=== PATIENT | female | born 1950 | race Caucasian/White ===

== ENCOUNTER 2017-04-12 10:50 | Emergency (ER) | payer MEDICARE, OTHER ==
[2017-04-12] MEDS ORDERED: ONDANSETRON 4 MG TABLET PO ONE (11:07)
[2017-04-12] MEDS ORDERED: SODIUM CHLORIDE 500 ML IV STA (11:07)
[2017-04-12 11:29] VITALS: BMI 35.4
[2017-04-12] MEDS ORDERED: ONDANSETRON 4 MG/2 ML VIAL IVPUSH ONE (11:32)
[2017-04-12] MEDS ORDERED: ACETAMINOPHEN 325 MG TABLET (FP) PO ONE (11:32)
--- NOTE | 2017-04-12 11:32 | PDOC ---
History of Present Illness - General Chief Complaint: Syncope/Near Syncope Stated Complaint: Syncope/Near Syncope Time Seen by Provider: 04/12/17 11:03 History Source: Patient, Family - History of Present Illness Timing/Duration: other (this am) Associated Symptoms: reports: diaphoresis, fever/chills, nausea/vomiting, weakness. denies: chest pain, cough, headaches, shortness of breath Past History - Past Medical History Allergies/Adverse Reactions: Allergies Allergy/AdvReac Type Severity Reaction Status Date / Time No Known Allergies Allergy Verified 04/12/17 11:23 Review of Systems - Review of Systems Constitutional: Yes: Fever, Weakness Respiratory: No: Cough, Shortness of Breath Cardiac (ROS): No: Chest Pain, Palpitations ABD/GI: Yes: Nausea. No: Diarrhea, Vomiting, Abdominal cramping : No: Dysuria, Hematuria *Physical Exam - Physical Exam General Appearance: Yes: Appropriately Dressed, Mild Distress HEENT: positive: Normal Voice, Other (dry MM) Neck: positive: Supple Respiratory/Chest: positive: Lungs Clear, Normal Breath Sounds. negative: Respiratory Distress Cardiovascular: positive: Regular Rate, S1, S2 Gastrointestinal/Abdominal: positive: Soft. negative: Tender Musculoskeletal: negative: CVA Tenderness Extremity: positive: Pedal Edema (2 edema w/ venous stasis changes b/l) Integumentary: positive: Dry, Warm Neurologic: positive: Alert, Normal Mood/Affect Heart Score/ECG Review - ECG Intrepretation Comment:: 04/12/17 11:37 Twelve-lead EKG was performed and reviewed by me. There is normal sinus rhythm with a normal rate. The axis is normal. The intervals are normal. There are no ST or T wave abnormalities. Impression: Normal twelve-lead EKG ED Treatment Course - LABORATORY CBC & Chemistry Diagram: 04/12/17 11:30 04/12/17 11:30 - RADIOLOGY Radiology Studies Ordered: Category Date Time Status HEAD CT WITHOUT CONTRAST [CT] Stat CT Scan 04/12/17 11:07 Ordered CHEST X-RAY PORTABLE* [RAD] Stat Radiology 04/12/17 11:06 Ordered Medical Decision Making - Medical Decision Making 04/12/17 11:28 66-year-old female, morbidly obese, osteoporosis, CHF, venous stasis, seizures, depression, sent from [facility] assisted living facility for profound weakness with diaphoresis and elevated BP this a.m. Patient also complaining of nausea. Denies vomiting, chest pain, shortness of breath, headache, dizziness, slurred speech or focal weakness. Patient is Citizen [place] speaking, but even with [place] Infectious Waste Technician via supervisor inventory merchandising phone, it was very difficult obtaining history from patient. I contacted patient's healthcare proxy, sister April, at [phone], number on facility sheet and got most of the history. Sister states patient does have a history of seizures but has not had a seizure in 12 years and is unsure if patient on any seizure meds. States she received call from facility staff this a.m. that patient was weak, diaphoretic and had elevated pressure. States she is on her way to ED to see patient See exam Weakness w/ nausea and fever R/o infection vs metabolic, less likely cardiac or neuro -tylenol -zofran -IVF -labs including lactate -rodriguez-cx 04/12/17 11:34 04/12/17 13:02 EKG, labs, UA, CT all unremarkable. No obvious source for infection at this time. Will check a flu and intra-abdominal pathology with CT scan. Anticipate admission 04/12/17 13:59 CT a/p unremarkable. Influenza pending. Case signed out to resident H[place]on with plan for serial troponin and discharge back to assisted living facility as per discussion with Dr. Le *DC/Admit/Observation/Transfer - Referrals Referrals: Jody Landry MD [Primary Care Provider] - - Patient Instructions - Post Discharge Activity
[2017-04-12] MEDS ORDERED: ACETAMINOPHEN 325 MG TABLET (FP) ONE (11:51)
[2017-04-12] MEDS ORDERED: ONDANSETRON *ODT* 4 MG TABLET ONE (11:51)
[2017-04-12] MEDS ORDERED: ONDANSETRON 4 MG/2 ML VIAL ONE (11:51)
[2017-04-12 12:07] LABS: BASOPHIL 0.2 % (0-2.0); MCH 33.2 pg (25.7-33.7); MCHC 33.3 g/dl (32.0-36.0); MEAN CELL VOLUME 99.9 fl (80-96); MEAN PLT VOLUME 6.4 fl (7.5-11.1); NEUTROPHILS 73.5 % (42.8-82.8); PLATELET COUNT 124 K/MM3 (134-434); RDW 14.9 % (11.6-15.6); WHITE BLOOD COUNT 6.9 K/mm3 (4.0-10.0)
[2017-04-12 12:32] LABS: ALBUMIN 3.5 g/dl (3.4-5.0); ANION GAP 6 (8-16); BILIRUBIN,TOTAL 0.6 mg/dL (0.2-1.0); CALCIUM 8.7 mg/dL (8.5-10.1); CO2 29 mmol/L (21-32); CREATININE 0.8 mg/dL (0.55-1.02); GLUCOSE,RANDOM 91 mg/dL (74-106); SGOT/AST 18 U/L (15-37); SGPT/ALT 12 U/L (12-78); TOT PROT 7.1 g/dl (6.4-8.2)
[2017-04-12 12:34] LABS: ALK PHOS 67 U/L (45-117); CPK 56 IU/L (26-192); TROPONIN I < 0.02 ng/ml (0.00-0.05)
[2017-04-12 12:46] LABS: URINE APPEARANCE CLEAR; URINE BILIRUBIN NEGATIVE (NEGATIVE); URINE BLOOD NEGATIVE (NEGATIVE); URINE COLOR LTYELLOW; URINE GLUCOSE (UA) NEGATIVE (NEGATIVE); URINE KETONE NEGATIVE (NEGATIVE); URINE NITRITE NEGATIVE (NEGATIVE); URINE PROTEIN NEGATIVE (NEGATIVE); URINE UROBILINOGEN NEGATIVE mg/dL (0.2-1.0)
[2017-04-12 15:51] VITALS: TEMP 99.3
--- NOTE | 2017-04-12 16:02 | PDOC ---
History of Present Illness - General Chief Complaint: Syncope/Near Syncope Stated Complaint: Syncope/Near Syncope Time Seen by Provider: 04/12/17 11:03 Past History - Past Medical History Allergies/Adverse Reactions: Allergies Allergy/AdvReac Type Severity Reaction Status Date / Time No Known Allergies Allergy Verified 04/12/17 11:23 Home Medications: Ambulatory Orders Unobtainable [Unobtainable] 04/12/17 COPD: No DVT: No Seizures: Yes Thyroid Disease: Yes (HYPO) - Immunization History Immunization Up to Date: Yes - Suicide/Smoking/Psychosocial Hx Smoking History: Unknown if ever smoked Have you smoked in the past 12 months: No Hx Alcohol Use: No Drug/Substance Use Hx: No Substance Use Type: None *Physical Exam - Vital Signs Last Vital Signs Temp Pulse Resp BP Pulse Ox 99.3 F 80 16 144/68 95 04/12/17 15:51 04/12/17 11:23 04/12/17 11:23 04/12/17 11:23 04/12/17 11:23 ED Treatment Course - LABORATORY CBC & Chemistry Diagram: 04/12/17 11:30 04/12/17 11:30 - ADDITIONAL ORDERS Additional order review: Laboratory Results 04/12/17 04/12/17 04/12/17 11:30 11:30 11:30 Sodium 138 Potassium 4.5 Chloride 103 Carbon Dioxide 29 Anion Gap 6 L BUN 17 Creatinine 0.8 Creat Clearance w eGFR > 60 Random Glucose 91 Lactic Acid 2.0 Calcium 8.7 Total Bilirubin 0.6 AST 18 ALT 12 Alkaline Phosphatase 67 Creatine Kinase 56 Troponin I < 0.02 B-Natriuretic Peptide 380.54 H Total Protein 7.1 Albumin 3.5 Urine Color Urine Appearance Urine pH Ur Specific [place] Urine Protein Urine Glucose (UA) Urine Ketones Urine Blood Urine Nitrite Urine Bilirubin Urine Urobilinogen 04/12/17 11:30 Sodium Potassium Chloride Carbon Dioxide Anion Gap BUN Creatinine Creat Clearance w eGFR Random Glucose Lactic Acid Calcium Total Bilirubin AST ALT Alkaline Phosphatase Creatine Kinase Troponin I B-Natriuretic Peptide Total Protein Albumin Urine Color Ltyellow Urine Appearance Clear Urine pH 9.0 H Ur Specific [place] 1.014 Urine Protein Negative Urine Glucose (UA) Negative Urine Ketones Negative Urine Blood Negative Urine Nitrite Negative Urine Bilirubin Negative Urine Urobilinogen Negative 04/12/17 13:22 Influenza Types A,B Antigen (WANDA) - Final Nasopharyngeal Swab - Final 04/12/17 11:30 RBC 4.14 MCV 99.9 H MCHC 33.3 RDW 14.9 MPV 6.4 L Neutrophils % 73.5 Lymphocytes % 13.3 Monocytes % 13.0 H Eosinophils % 0.0 Basophils % 0.2 - Medications Given in the ED: ED Medications Discontinued Medications Generic Name Dose Route Start Last Admin Trade Name Spencerq PRN Reason Stop Dose Admin Acetaminophen 650 mg 04/12/17 11:32 04/12/17 12:02 Tylenol - PO 04/12/17 11:33 650 mg ONCE ONE Administration Sodium Chloride 500 mls @ 1,000 mls/hr 04/12/17 11:07 04/12/17 12:01 Normal Saline - IV 04/12/17 11:36 1,000 mls/hr ASDIR STA Administration Ondansetron HCl 4 mg 04/12/17 11:07 04/12/17 12:00 Zofran - PO 04/12/17 11:08 4 mg ONCE ONE Administration Ondansetron HCl 4 mg 04/12/17 11:32 04/12/17 12:02 Zofran Injection IVPUSH 04/12/17 11:33 4 mg ONCE ONE Administration *DC/Admit/Observation/Transfer - Referrals Referrals: Jody Landry MD [Primary Care Provider] - - Patient Instructions - Post Discharge Activity
[2017-04-12 16:29] LABS: CPK 46 IU/L (26-192); TROPONIN I < 0.02 ng/ml (0.00-0.05)
--- NOTE | 2017-04-12 17:36 | PDOC ---
*Physical Exam - Vital Signs Last Vital Signs Temp Pulse Resp BP Pulse Ox 99.3 F 80 16 144/68 95 04/12/17 15:51 04/12/17 11:23 04/12/17 11:23 04/12/17 11:23 04/12/17 11:23 - Physical Exam General Appearance: Yes: Nourished Neck: positive: Trachea midline, Supple Respiratory/Chest: positive: Lungs Clear Cardiovascular: positive: S1, S2 Neurologic: positive: Alert ED Treatment Course - LABORATORY CBC & Chemistry Diagram: 04/12/17 11:30 04/12/17 11:30 - ADDITIONAL ORDERS Additional order review: Laboratory Results 04/12/17 04/12/17 04/12/17 15:43 11:30 11:30 Sodium Potassium Chloride Carbon Dioxide Anion Gap BUN Creatinine Creat Clearance w eGFR Random Glucose Lactic Acid 2.0 Calcium Total Bilirubin AST ALT Alkaline Phosphatase Creatine Kinase 46 Troponin I < 0.02 B-Natriuretic Peptide 380.54 H Total Protein Albumin Urine Color Urine Appearance Urine pH Ur Specific [place] Urine Protein Urine Glucose (UA) Urine Ketones Urine Blood Urine Nitrite Urine Bilirubin Urine Urobilinogen 04/12/17 04/12/17 11:30 11:30 Sodium 138 Potassium 4.5 Chloride 103 Carbon Dioxide 29 Anion Gap 6 L BUN 17 Creatinine 0.8 Creat Clearance w eGFR > 60 Random Glucose 91 Lactic Acid Calcium 8.7 Total Bilirubin 0.6 AST 18 ALT 12 Alkaline Phosphatase 67 Creatine Kinase 56 Troponin I < 0.02 B-Natriuretic Peptide Total Protein 7.1 Albumin 3.5 Urine Color Ltyellow Urine Appearance Clear Urine pH 9.0 H Ur Specific [place] 1.014 Urine Protein Negative Urine Glucose (UA) Negative Urine Ketones Negative Urine Blood Negative Urine Nitrite Negative Urine Bilirubin Negative Urine Urobilinogen Negative 04/12/17 13:22 Influenza Types A,B Antigen (WANDA) - Final Nasopharyngeal Swab - Final 04/12/17 11:30 RBC 4.14 MCV 99.9 H MCHC 33.3 RDW 14.9 MPV 6.4 L Neutrophils % 73.5 Lymphocytes % 13.3 Monocytes % 13.0 H Eosinophils % 0.0 Basophils % 0.2 - Medications Given in the ED: ED Medications Discontinued Medications Generic Name Dose Route Start Last Admin Trade Name Freq PRN Reason Stop Dose Admin Acetaminophen 650 mg 04/12/17 11:32 04/12/17 12:02 Tylenol - PO 04/12/17 11:33 650 mg ONCE ONE Administration Sodium Chloride 500 mls @ 1,000 mls/hr 04/12/17 11:07 04/12/17 12:01 Normal Saline - IV 04/12/17 11:36 1,000 mls/hr ASDIR STA Administration Ondansetron HCl 4 mg 04/12/17 11:07 04/12/17 12:00 Zofran - PO 04/12/17 11:08 4 mg ONCE ONE Administration Ondansetron HCl 4 mg 04/12/17 11:32 04/12/17 12:02 Zofran Injection IVPUSH 04/12/17 11:33 4 mg ONCE ONE Administration Medical Decision Making - Medical Decision Making 04/12/17 17:39 Patient signed out by Parvin (PA) and under the care of Dr. Le (Attending). Awaiting repeat Troponin. Patient resting comfortably, denies any current chest pain, shortness of breath. Heart Score 1. Repeat Troponin (-), patient continues to deny any chest pain. A&O x2 (baseline ). Influenza negative. Family @ bedside, counseled extensively on patient's condition and course of care during time in ED. Patient discharged to assisted living facility. *DC/Admit/Observation/Transfer Diagnosis at time of Disposition: Chest pain - Discharge Dispostion Disposition: INTERMEDIATE FACILITY - Referrals Referrals: Jody Landry MD [Primary Care Provider] - - Patient Instructions Printed Discharge Instructions: Improving Nutrition in the Elderly Additional Instructions: Please return to the Emergency Department for any worsening or concerning symptoms. - Post Discharge Activity
[2017-04-12 17:43] LABS: URINE LEUK ESTERASE Negative (NEGATIVE)
[2017-04-12 18:08] VITALS: BP 138/61; PULSE 72
--- NOTE | 2017-04-13 07:40 | EKG ---
Test Reason : Blood Pressure : / mmHG Vent. Rate : 076 BPM Atrial Rate : 076 BPM P-R Int : 138 ms QRS Dur : 076 ms QT Int : 372 ms P-R-T Axes : 054 049 040 degrees QTc Int : 418 ms NORMAL SINUS RHYTHM NORMAL ECG NO PREVIOUS ECGS AVAILABLE Confirmed by Denisse Ying ([id number]) on 04/12/2017 2:28:37 PM Also confirmed by MD Stepan, Denisse ([id number]), editor continuity and script DENISSE TOMLIN ([id number]) on 04/13/2017 7:39:38 AM Referred By: Confirmed By:Denisse Ying MD
== END 2017-04-12 18:10 ==
LOC: JER 10:50
DX: R07.9 Chest pain, unspecified (principal); E66.01 Morbid (severe) obesity due to excess calories; Z68.35 Body mass index [BMI] 35.0-35.9, adult; I50.9 Heart failure, unspecified; F32.9 Major depressive disorder, single episode, unspecified; R56.9 Unspecified convulsions
CPT/HCPCS: 36415; 70450-TC; 71010-TC; 74177-TC; 80053; 81003; 82550; 83605; 83880; 84484; 85025; 87040; 87086; 87804; 93005; 93010; 99285-25

== ENCOUNTER 2017-04-18 21:45 | Inpatient (IN) | payer OTHER ==
[2017-04-18 22:32] VITALS: BMI 27.4
[2017-04-18] MEDS ORDERED: SODIUM CHLORIDE 0.9% 1000 ML INFUS.BAG IV PRN (23:47)
--- NOTE | 2017-04-19 00:41 | PDOC ---
History of Present Illness - History of Present Illness Initial Comments: 04/19/17 00:41 The patient is 66-year-old female, nepalese speaking/understands frisian, with a significant past medical history of osteoporosis, CHF, venous stasis, seizures, depression, who presents to the emergency department, sent from [facility], for "shaking all day" as per the facility. Allergies: NKDA Social history: denies toxic habits <Maureen Del Castillo - Last Filed: 04/19/17 01:41> <Yajaira Leyva - Last Filed: 04/19/17 16:51> - General Chief Complaint: Tremors Stated Complaint: SHAKING Time Seen by Provider: 04/18/17 22:03 Past History <Maureen Del Castillo - Last Filed: 04/19/17 01:41> - Past Medical History COPD: No DVT: No Seizures: Yes Thyroid Disease: Yes (HYPO) - Immunization History Immunization Up to Date: Yes - Suicide/Smoking/Psychosocial Hx Smoking History: Unknown if ever smoked Have you smoked in the past 12 months: No Information on smoking cessation initiated: No Hx Alcohol Use: No Drug/Substance Use Hx: No Substance Use Type: None <Yajaira Leyva - Last Filed: 04/19/17 16:51> - Past Medical History Allergies/Adverse Reactions: Allergies Allergy/AdvReac Type Severity Reaction Status Date / Time No Known Allergies Allergy Verified 04/18/17 22:30 Home Medications: Ambulatory Orders Calcium Citrate [Calcitrate] 200 mg PO DAILY 04/19/17 Divalproex *ER* [Depakote *ER* -] 1,000 mg PO AM 04/19/17 Divalproex *ER* [Depakote *ER* -] 750 mg PO HS 04/19/17 Ergocalciferol (Vitamin D2) [Vitamin D2] 50,000 unit PO WEEKLY 04/19/17 Furosemide [Lasix] 20 mg PO Q48H 04/19/17 Levetiracetam [Keppra -] 1,500 mg PO BID 04/19/17 Levothyroxine Sodium [Levo-T] 50 mcg PO DAILY 04/19/17 Review of Systems - Review of Systems Able to Perform ROS?: Yes Comments:: 04/19/17 00:42 CONSTITUTIONAL: (+) "Shaking all day" Absent: fever, chills, diaphoresis, generalized weakness, malaise, loss of appetite HEENT: Absent: rhinorrhea, nasal congestion, throat pain, throat swelling, difficulty swallowing, mouth swelling, ear pain, eye pain, visual Changes CARDIOVASCULAR: Absent: chest pain, syncope, palpitations, irregular heart rate, lightheadedness , peripheral edema RESPIRATORY: Absent: cough, shortness of breath, dyspnea with exertion, orthopnea, wheezing, stridor, hemoptysis GASTROINTESTINAL: Absent: abdominal pain, abdominal distension, nausea, vomiting, diarrhea, constipation, melena, hematochezia GENITOURINARY: Absent: dysuria, frequency, urgency, hesitancy, hematuria, flank pain, genital pain MUSCULOSKELETAL: Absent: myalgia, arthralgia, joint swelling SKIN: Absent: rash, itching, pallor HEMATOLOGIC/IMMUNOLOGIC: Absent: easy bleeding, easy bruising, lymphadenopathy, frequent infections ENDOCRINE: Absent: unexplained weight gain, unexplained weight loss, heat intolerance, cold intolerance NEUROLOGIC: Absent: headache, focal weakness or paresthesias, dizziness, unsteady gait, seizure, mental status changes, bladder or bowel incontinence PSYCHIATRIC: Absent: anxiety, depression, suicidal or homicidal ideation, hallucinations. Is the patient limited Kiswahili proficient: Yes <Maureen Del Castillo - Last Filed: 04/19/17 01:41> *Physical Exam - Vital Signs Last Vital Signs Temp Pulse Resp BP Pulse Ox 102.5 F H 98 H 18 173/57 98 04/19/17 00:23 04/19/17 00:23 04/19/17 00:23 04/19/17 00:23 04/19/17 00:23 - Physical Exam Comments: 04/19/17 00:43 GENERAL: Well developed, well nourished. Awake and alert. No acute distress. HEENT: Normocephalic, atraumatic. PERRLA, EOMI. No conjunctival pallor. Sclera are non- icteric. Moist mucous membranes. Oropharynx is clear. NECK: Supple. Full ROM. No JVD. Carotid pulses 2+ and symmetric, without bruits. No thyromegaly. No lymphadenopathy. CARDIOVASCULAR: Regular rate and rhythm. No murmurs, rubs, or gallops. Distal pulses are 2+ and symmetric. PULMONARY: No evidence of respiratory distress. Lungs clear to auscultation bilaterally. No wheezing, rales or rhonchi. ABDOMINAL: Soft. Non-tender. Non-distended. No rebound or guarding. No organomegaly. Normoactive bowel sounds. MUSCULOSKELETAL Normal range of motion at all joints. No bony deformities or tenderness. No CVA tenderness. EXTREMITIES: No cyanosis. No clubbing. No edema. No calf tenderness. SKIN: Warm and dry. Normal capillary refill. No rashes. No jaundice. NEUROLOGICAL: (+) tremor, greater on the right. Alert, awake, appropriate. Cranial nerves 2- 12 intact. Normoreflexic in the upper and lower extremities. Normal speech. Toes are down-going bilaterally. PSYCHIATRIC: Cooperative. Good eye contact. Appropriate mood and affect. <Maureen Del Castillo - Last Filed: 04/19/17 01:41> - Vital Signs Last Vital Signs Temp Pulse Resp BP Pulse Ox 102.5 F H 98 H 18 173/57 98 04/19/17 00:23 04/19/17 00:23 04/19/17 00:23 04/19/17 00:23 04/19/17 00:23 <Yajaira Leyva - Last Filed: 04/19/17 16:51> ED Treatment Course - LABORATORY CBC & Chemistry Diagram: 04/19/17 00:33 04/19/17 00:33 - ADDITIONAL ORDERS Additional order review: 04/18/17 23:48 Influenza Types A,B Antigen (WANDA) - Final Nasopharyngeal Swab - Final <Maureen Del Castillo - Last Filed: 04/19/17 01:41> - LABORATORY CBC & Chemistry Diagram: 04/19/17 08:30 04/19/17 08:30 - ADDITIONAL ORDERS Additional order review: 04/18/17 23:48 Influenza Types A,B Antigen (WANDA) - Final Nasopharyngeal Swab - Final - RADIOLOGY Radiology Studies Ordered: Category Date Time Status CHEST X-RAY PORTABLE* [RAD] Stat Radiology 04/19/17 00:37 Ordered <Yajaira Leyva - Last Filed: 04/19/17 16:51> *DC/Admit/Observation/Transfer - Attestations Scribe Attestion: 04/19/17 00:43 Documentation prepared by Maureen Del Castillo, acting as medical physics researcher for Yajaira Leyva MD <Maureen Del Castillo - Last Filed: 04/19/17 01:41> <Yajaira Leyva - Last Filed: 04/19/17 16:51> Diagnosis at time of Disposition: Pneumonia - Discharge Dispostion Condition at time of disposition: Stable
[2017-04-19 01:07] LABS: VENOUS PH 7.35 (7.32-7.42)
[2017-04-19 01:09] LABS: BASO % 0.4 % (0-2.0); EOS % 0.2 % (0-4.5); MCH 34.1 pg (25.7-33.7); MCHC 34.1 g/dl (32.0-36.0); MEAN PLT VOLUME 7.2 fl (7.5-11.1); NEUT % 63.9 % (42.8-82.8); RDW 14.5 % (11.6-15.6); WHITE BLOOD COUNT 6.9 K/mm3 (4.0-10.0)
[2017-04-19 01:18] LABS: INR 1.04 (0.82-1.09); PROTHROMBIN TIME (PATIENT) 11.8 SEC (9.98-11.88)
[2017-04-19 01:21] LABS: ACTIVATED PTT 27.6 SECONDS (26.9-34.4)
[2017-04-19 01:29] LABS: ALBUMIN 3.6 g/dl (3.4-5.0); ALK PHOS 68 U/L (45-117); ANION GAP 9 (8-16); BILIRUBIN,TOTAL 0.5 mg/dL (0.2-1.0); CALCIUM 8.7 mg/dL (8.5-10.1); CO2 29 mmol/L (21-32); CPK 53 IU/L (26-192); CREATININE 0.9 mg/dL (0.55-1.02); GLUCOSE,RANDOM 100 mg/dL (74-106); SGOT/AST 17 U/L (15-37); SGPT/ALT 13 U/L (12-78); TOT PROT 7.4 g/dl (6.4-8.2)
[2017-04-19] MEDS ORDERED: ACETAMINOPHEN 1000 MG/100 ML VIAL (NON FORMULARY) IVPB ONE (01:30)
[2017-04-19 01:31] LABS: TROPONIN I < 0.02 ng/ml (0.00-0.05)
[2017-04-19] MEDS ORDERED: ACETAMINOPHEN INJECTION 100 ML IVPB ONE (01:33)
[2017-04-19] MEDS ORDERED: CEFTRIAXONE 2 GM in DEXTROSE 5%-WATER - 100 ML IVPB ONE (01:47)
[2017-04-19] MEDS ORDERED: LEVOFLOXACIN 500 MG IVPB 500 MG/100 ML BAG IVPB ONE ×2 (01:58→02:46)
[2017-04-19 02:13] LABS: URINE APPEARANCE CLEAR; URINE BILIRUBIN NEGATIVE (NEGATIVE); URINE BLOOD NEGATIVE (NEGATIVE); URINE COLOR LTYELLOW; URINE GLUCOSE (UA) NEGATIVE (NEGATIVE); URINE KETONE TRACE (NEGATIVE); URINE LEUK ESTERASE NEGATIVE (NEGATIVE); URINE NITRITE NEGATIVE (NEGATIVE); URINE PROTEIN NEGATIVE (NEGATIVE); URINE UROBILINOGEN NEGATIVE mg/dL (0.2-1.0)
[2017-04-19] MEDS ORDERED: CEFTRIAXONE 2 GM/100 ML BAG IVPB ONE (02:45)
--- NOTE | 2017-04-19 03:11 | PDOC ---
*Physical Exam - Vital Signs Last Vital Signs Temp Pulse Resp BP Pulse Ox 102.5 F H 98 H 18 173/57 98 04/19/17 00:23 04/19/17 00:23 04/19/17 00:23 04/19/17 00:23 04/19/17 00:23 ED Treatment Course - LABORATORY CBC & Chemistry Diagram: 04/19/17 00:33 04/19/17 00:33 - ADDITIONAL ORDERS Additional order review: Laboratory Results 04/19/17 04/19/17 04/19/17 00:47 00:33 00:33 PT with INR INR PTT (Actin FS) VBG pH POC VBG pCO2 POC VBG pO2 Mixed VBG HCO3 Sodium Potassium Chloride Carbon Dioxide Anion Gap BUN Creatinine Creat Clearance w eGFR Random Glucose Lactic Acid 1.2 Calcium Total Bilirubin AST ALT Alkaline Phosphatase Creatine Kinase Troponin I Total Protein Albumin Urine Color Ltyellow Urine Appearance Clear Urine pH 6.0 D Ur Specific [place] 1.015 Urine Protein Negative Urine Glucose (UA) Negative Urine Ketones Trace H Urine Blood Negative Urine Nitrite Negative Urine Bilirubin Negative Urine Urobilinogen Negative Blood Type O POSITIVE Antibody Screen Negative 04/19/17 04/19/17 04/19/17 00:33 00:33 00:33 PT with INR 11.80 INR 1.04 PTT (Actin FS) 27.6 VBG pH 7.35 POC VBG pCO2 44.3 POC VBG pO2 37.2 Mixed VBG HCO3 24.0 Sodium 137 Potassium 4.0 Chloride 99 Carbon Dioxide 29 Anion Gap 9 BUN 23 H D Creatinine 0.9 Creat Clearance w eGFR > 60 Random Glucose 100 Lactic Acid Calcium 8.7 Total Bilirubin 0.5 AST 17 ALT 13 Alkaline Phosphatase 68 Creatine Kinase 53 Troponin I < 0.02 Total Protein 7.4 Albumin 3.6 Urine Color Urine Appearance Urine pH Ur Specific [place] Urine Protein Urine Glucose (UA) Urine Ketones Urine Blood Urine Nitrite Urine Bilirubin Urine Urobilinogen Blood Type Antibody Screen 04/18/17 23:48 Influenza Types A,B Antigen (WANDA) - Final Nasopharyngeal Swab - Final 04/19/17 00:33 RBC 3.97 MCV 100.0 H MCHC 34.1 RDW 14.5 MPV 7.2 L D Neutrophils % 63.9 Lymphocytes % 20.9 D Monocytes % 14.6 H Eosinophils % 0.2 D Basophils % 0.4 - RADIOLOGY Radiology Studies Ordered: Category Date Time Status HEAD CT WITHOUT CONTRAST [CT] Stat CT Scan 04/19/17 02:23 Taken - Medications Given in the ED: ED Medications Discontinued Medications Generic Name Dose Route Start Last Admin Trade Name Tomás PRN Reason Stop Dose Admin Acetaminophen 1,000 mg 04/19/17 01:30 04/19/17 01:41 Ofirmev Injection - IVPB 04/19/17 01:31 1,000 mg ONCE ONE Administration Ceftriaxone Sodium 2 gm/ 100 mls @ 200 mls/hr 04/19/17 01:47 04/19/17 02:54 Dextrose IVPB 04/19/17 02:16 200 mls/hr ONCE ONE Administration Levofloxacin 500 mg in 100 mls @ 100 mls/hr 04/19/17 01:58 04/19/17 02:54 Levaquin 500 Mg Premixed Ivpb - IVPB 04/19/17 02:57 100 mls/hr ONCE ONE Administration Medical Decision Making - Medical Decision Making 04/19/17 03:20 Pt endorsed to me by Dr. Leyva at 2am shift change. Awaiting CTH in light of recent tremors to the hands. CTH no acute findings. Tremors resolved at present. Likely rigors due to fever. Will admit for pna. *DC/Admit/Observation/Transfer Diagnosis at time of Disposition: Pneumonia Qualifiers: Pneumonia type: due to unspecified organism Laterality: right Lung location: lower lobe of lung Qualified Code(s): J18.1 - Lobar pneumonia, unspecified organism - Discharge Dispostion Condition at time of disposition: Stable Admit: Yes - Referrals Referrals: Jody Landry MD [Primary Care Provider] - - Patient Instructions - Post Discharge Activity
--- NOTE | 2017-04-19 03:18 | PN ---
Teaching Attending Note Name of Resident: Saqib Reyes ATTENDING PHYSICIAN STATEMENT I saw and evaluated the patient. I reviewed the resident's note and discussed the case with the resident. I agree with the resident's findings and plan as documented. SUBJECTIVE: 66 F with pmhx. of osteoporosis, CHF, venous stasis, seizures, and depression who presents from [facility] with rigors. As per NH had all day shivers. Pt. poor historian at bedside. States she feels tired. OBJECTIVE: Physical: VS: Vital Signs Period Temp Pulse Resp BP Sys/Villa Pulse Ox Last 24 Hr 102.5 F 88-98 14-18 140-173/57-70 98-98 GEN: NAD, Resting in bed HEENT: NCAT, PERRL, Throat without erythema or exudates CARD: RRR S1, S2 RESP: Decreased breath sounds at bases ABD: BS, NTD to palpation EXT: Venous stasis changes +2 pitting edema bilateral and equal, pulses intact CBCD WBC 6.9 K/mm3 (4.0-10.0) 04/19/17 00:33 RBC 3.97 M/mm3 (3.60-5.2) 04/19/17 00:33 Hgb 13.5 GM/dL (10.7-15.3) 04/19/17 00:33 Hct 39.7 % (32.4-45.2) 04/19/17 00:33 MCV 100.0 fl (80-96) H 04/19/17 00:33 MCHC 34.1 g/dl (32.0-36.0) 04/19/17 00:33 RDW 14.5 % (11.6-15.6) 04/19/17 00:33 MPV 7.2 fl (7.5-11.1) L D 04/19/17 00:33 CMP Sodium 137 mmol/L (136-145) 04/19/17 00:33 Potassium 4.0 mmol/L (3.5-5.1) 04/19/17 00:33 Chloride 99 mmol/L (98-107) 04/19/17 00:33 Carbon Dioxide 29 mmol/L (21-32) 04/19/17 00:33 Anion Gap 9 (8-16) 04/19/17 00:33 BUN 23 mg/dL (7-18) H D 12/12/17 00:33 Creatinine 0.9 mg/dL (0.55-1.02) 04/19/17 00:33 Creat Clearance w eGFR > 60 (>60) 04/19/17 00:33 Random Glucose 100 mg/dL (74-106) 04/19/17 00:33 Calcium 8.7 mg/dL (8.5-10.1) 04/19/17 00:33 Total Bilirubin 0.5 mg/dL (0.2-1.0) 04/19/17 00:33 AST 17 U/L (15-37) 04/19/17 00:33 ALT 13 U/L (12-78) 04/19/17 00:33 Alkaline Phosphatase 68 U/L (45-117) 04/19/17 00:33 Total Protein 7.4 g/dl (6.4-8.2) 04/19/17 00:33 Albumin 3.6 g/dl (3.4-5.0) 04/19/17 00:33 CARDIAC ENZYMES Creatine Kinase 53 IU/L (26-192) 04/19/17 00:33 Troponin I < 0.02 ng/ml (0.00-0.05) 04/19/17 00:33 Home Medications Medication Instructions Recorded Unobtainable [Unobtainable] 04/12/17 Ambulatory Orders Calcium Citrate [Calcitrate] 200 mg PO DAILY 04/19/17 Divalproex *ER* [Depakote *ER* -] 1,000 mg PO AM 04/19/17 Divalproex *ER* [Depakote *ER* -] 750 mg PO HS 04/19/17 Ergocalciferol (Vitamin D2) [Vitamin D2] 50,000 unit PO WEEKLY 04/19/17 Furosemide [Lasix] 20 mg PO Q48H 04/19/17 Levetiracetam [Keppra -] 1,500 mg PO BID 04/19/17 Levothyroxine Sodium [Levo-T] 50 mcg PO DAILY 04/19/17 CT HEAD: Involutional changes with moderate ventriculomegaly, out of proportion to age, no hemmorage or mass, 4.5mm Right lateral thalamic/medial internal lacunar infarct of indetrminate age, advanced thickening of maxillary sinus ASSESSMENT AND PLAN: 66 F with pmhx. of osteoporosis, CHF, venous stasis, seizures, and depression who presents from [facility] with rigors, found to be septic due to pneumonia 1.) Sepsis due to Pnuemonia - C/W Levaquin - Urine Ags - Flu Swab - Cameron Cx - Resp. Panel - Repeat LA 2.) R. Lateral Thalamic Infarct- Indeterminate age - Neuro Consult - Await final read of CT- Consider MRI brain wo contrast - TSH, B12, Folate - Lipid Panel, A1c - Echo/Carotid US - ASA - Statin 3.) Seizure Do - C/W Keppra/ Depakote 4.) Hypothyriodism - Chk. Tsh - C.W Levothyroxine 5.) CHF hx. LE edema - C/W Lasix - Duplex LE 6.) Thrombocytopenia - Most likely due to sepsis - Monitor 7.) Dvt Ppx - Scds Rest as per resident note
--- NOTE | 2017-04-19 04:10 | MSN ---
Admitting History and Physical - Admission Chief Complaint: Chills/ Shaking History of Present Illness: Maura Koenig is a 66 year old female with pmhx of osteoporosis, CHF, venous stasis, seizures, and depression, who was sent from [facility] for "shaking all day". Attempts were made to obtain further history through an Andorran catalogue librarian and a sleeper cutter. Unable to obtain further history due to language barrier. ED course was notable for: 1. CXR showing right lower lobe consolidation consistent with pneumonia 2. Fever of 102.5, HR: 98 3. 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 Cardiovascular: Yes: CHF, Other (Venous stasis) Psych: Yes: Depression Musculoskeletal: Yes: Other (Osteoporosis) - Smoking History Smoking history: Unknown if ever smoked Have you smoked in the past 12 months: No - Alcohol/Substance Use Hx Alcohol Use: No Home Medications - Allergies Allergies/Adverse Reactions: Allergies Allergy/AdvReac Type Severity Reaction Status Date / Time No Known Allergies Allergy Verified 04/18/17 22:30 - Home Medications Home Medications: Ambulatory Orders Calcium Citrate [Calcitrate] 200 mg PO DAILY 04/19/17 Divalproex *ER* [Depakote *ER* -] 1,000 mg PO AM 04/19/17 Divalproex *ER* [Depakote *ER* -] 750 mg PO HS 04/19/17 Ergocalciferol (Vitamin D2) [Vitamin D2] 50,000 unit PO WEEKLY 04/19/17 Furosemide [Lasix] 20 mg PO Q48H 04/19/17 Levetiracetam [Keppra -] 1,500 mg PO BID 04/19/17 Levothyroxine Sodium [Levo-T] 50 mcg PO DAILY 04/19/17 Review of Systems Unable to obtain ROS, reason: language barrier Physical Examination Vital Signs: Vital Signs Temperature 102.5 F H 04/19/17 00:23 Pulse Rate 98 H 04/19/17 00:23 Respiratory Rate 18 04/19/17 00:23 Blood Pressure 173/57 04/19/17 00:23 O2 Sat by Pulse Oximetry (%) 98 04/19/17 00:23 Constitutional: Yes: Well Nourished, Mild Distress Eyes: Yes: Conjunctiva Clear HENT: Yes: Atraumatic, Normocephalic Neck: Yes: Supple, Trachea Midline Cardiovascular: Yes: Tachycardia Respiratory: Yes: Other (Crackles and mild wqheezes heard at the base of the lung, right >left) Gastrointestinal: Yes: Normal Bowel Sounds, Soft Extremities: Yes: Other (Discoloration in the lower legs bilaterally, secondary to venous stasis, warm to touch) Edema: Yes Integumentary: Yes: Venous Stasis Changes Neurological: Yes: Other (Unable to obtain secondary to patient's inability to follow command) Labs: CBC, BMP 04/19/17 00:33 04/19/17 00:33 Assessment/Plan Maura Koenig is a 66 yo F with PMHx of osteoporosis, CHF, venous stasis, seizures, and depression who was sent from [facility] for chills/ shaking. Patient was admitted for pneumonia and to rule out recent CVA. 1. Sepsis due to pneumonia - CXR showed right lower lobe consolidation- likely community acquired pneumonia - Patient is febrile- 102F, tachycardic- HR 98, no leukocytosis - Continue Levaquin 2. Possible recent CVA - Head CT showed right lateral thalamic infarct, unsure if recent or old - Get neuro on board- Dr. Lehman - ASA, Lipitor - Order lipid panel and HbA1c - TSH, B12, Folate - Echo, carotid doppler 4. CHF - Continue Lasix - Sodium controlled diet 5. Hypothyroidism - Continue Levothyroxine 6. Seizure - Continue Levetiracetam and Depakote 7. DVT proph - SCDs bilaterally Dispo: Admit to med-surg.
--- NOTE | 2017-04-19 04:27 | HP ---
CHIEF COMPLAINT: Shaking Chills PCP: Jody Landyr HISTORY OF PRESENT ILLNESS: 66 y.o. Barbadian speaking F who presents with shaking chills. Retail Manager In Training used to speak with patient however patient was unable to communicate with manager cosmetic. HPI taken from ED note: "The patient is 66-year-old female, spanish speaking/understands turkmen, with a significant past medical history of osteoporosis, CHF, venous stasis, seizures , depression, who presents to the emergency department, sent from [facility], for "shaking all day" as per the facility." ER course was notable for: (1) Fever 102.5, HR 98, Levaquin, Ceftriaxone (2) CT Head- R. Lateral Thalamic Infarct of indeterminate age (3) CXR- RLL pneumonia Recent Travel: unknown PAST MEDICAL HISTORY: as per hpi PAST SURGICAL HISTORY: unknown Social History: Smoking: unknown Alcohol: unknown Drugs: unknown Family History: Allergies No Known Allergies Allergy (Verified 04/18/17 22:30) HOME MEDICATIONS: Home Medications Medication Instructions Recorded Calcium Citrate [Calcitrate] 200 mg PO DAILY 04/19/17 Divalproex *ER* [Depakote *ER* -] 1,000 mg PO AM 04/19/17 Divalproex *ER* [Depakote *ER* -] 750 mg PO HS 04/19/17 Ergocalciferol (Vitamin D2) 50,000 unit PO WEEKLY 04/19/17 [Vitamin D2] Furosemide [Lasix] 20 mg PO Q48H 04/19/17 Levetiracetam [Keppra -] 1,500 mg PO BID 04/19/17 Levothyroxine Sodium [Levo-T] 50 mcg PO DAILY 04/19/17 REVIEW OF SYSTEMS : UNABLE TO BE OBTAINED PHYSICAL EXAMINATION Vital Signs - 24 hr 04/18/17 04/19/17 22:30 00:23 Temperature 102.5 F H Pulse Rate 88 Pulse Rate [ 98 H Left Radial] Respiratory 14 18 Rate Blood Pressure 140/70 Blood Pressure 173/57 [Left Arm] O2 Sat by Pulse 98 98 Oximetry (%) GENERAL: Awake, alert, and fully oriented, in no acute distress. HEAD: Normal with no signs of trauma. EYES: Extraocular movements intact, sclera anicteric, conjunctiva clear. No lid lag. EARS, NOSE, THROAT: Oropharynx clear without exudates. Moist mucous membranes. NECK: Normal range of motion, supple without lymphadenopathy, JVD, or masses. LUNGS: Right lower lobe crackles + mild wheezing. No accessory muscle use. HEART: Tachycardic, normal S1 and S2 without murmur, rub or gallop. ABDOMEN: Soft, nontender, not distended, normoactive bowel sounds, no guarding, no rebound, no masses. No hepatomegaly or splenomegaly. MUSCULOSKELETAL: Normal range of motion at all joints. No bony deformities or tenderness. No CVA tenderness. UPPER EXTREMITIES: 2+ pulses, warm, well-perfused. No cyanosis. No clubbing. No peripheral edema. LOWER EXTREMITIES: 2+ pulses, warm, well-perfused. 2+ edema with chronic venous stasis changes NEUROLOGICAL: Unable to obtain 2/2 to difficulty following commands. PSYCHIATRIC: Cooperative. Good eye contact. Appropriate mood and affect. SKIN: Warm, dry, normal turgor, no rashes or lesions noted, normal capillary refill. Laboratory Results - last 24 hr 04/19/17 04/19/17 04/19/17 00:33 00:33 00:33 WBC 6.9 RBC 3.97 Hgb 13.5 Hct 39.7 MCV 100.0 H MCH 34.1 H MCHC 34.1 RDW 14.5 MPV 7.2 L D Neutrophils % 63.9 Lymphocytes % 20.9 D Monocytes % 14.6 H Eosinophils % 0.2 D Basophils % 0.4 PT with INR 11.80 INR 1.04 PTT (Actin FS) 27.6 VBG pH 7.35 POC VBG pCO2 44.3 POC VBG pO2 37.2 Mixed VBG HCO3 24.0 Sodium Potassium Chloride Carbon Dioxide Anion Gap BUN Creatinine Creat Clearance w eGFR Random Glucose Lactic Acid Calcium Total Bilirubin AST ALT Alkaline Phosphatase Creatine Kinase Troponin I Total Protein Albumin Urine Color Urine Appearance Urine pH Ur Specific [place] Urine Protein Urine Glucose (UA) Urine Ketones Urine Blood Urine Nitrite Urine Bilirubin Urine Urobilinogen Blood Type Antibody Screen 04/19/17 04/19/17 04/19/17 00:33 00:33 00:33 WBC RBC Hgb Hct MCV MCH MCHC RDW MPV Neutrophils % Lymphocytes % Monocytes % Eosinophils % Basophils % PT with INR INR PTT (Actin FS) VBG pH POC VBG pCO2 POC VBG pO2 Mixed VBG HCO3 Sodium 137 Potassium 4.0 Chloride 99 Carbon Dioxide 29 Anion Gap 9 BUN 23 H D Creatinine 0.9 Creat Clearance w eGFR > 60 Random Glucose 100 Lactic Acid 1.2 Calcium 8.7 Total Bilirubin 0.5 AST 17 ALT 13 Alkaline Phosphatase 68 Creatine Kinase 53 Troponin I < 0.02 Total Protein 7.4 Albumin 3.6 Urine Color Urine Appearance Urine pH Ur Specific [place] Urine Protein Urine Glucose (UA) Urine Ketones Urine Blood Urine Nitrite Urine Bilirubin Urine Urobilinogen Blood Type O POSITIVE Antibody Screen Negative 04/19/17 00:47 WBC RBC Hgb Hct MCV MCH MCHC RDW MPV Neutrophils % Lymphocytes % Monocytes % Eosinophils % Basophils % PT with INR INR PTT (Actin FS) VBG pH POC VBG pCO2 POC VBG pO2 Mixed VBG HCO3 Sodium Potassium Chloride Carbon Dioxide Anion Gap BUN Creatinine Creat Clearance w eGFR Random Glucose Lactic Acid Calcium Total Bilirubin AST ALT Alkaline Phosphatase Creatine Kinase Troponin I Total Protein Albumin Urine Color Ltyellow Urine Appearance Clear Urine pH 6.0 D Ur Specific [place] 1.015 Urine Protein Negative Urine Glucose (UA) Negative Urine Ketones Trace H Urine Blood Negative Urine Nitrite Negative Urine Bilirubin Negative Urine Urobilinogen Negative Blood Type Antibody Screen ASSESSMENT/PLAN: 66-year-old female with a significant past medical history of osteoporosis, CHF , venous stasis, seizures, depression presenting with shaking chills admitted for sepsis 2/2 to CAP #Sepsis 2/2 to Community acquired pneumonia -Levaquin 500 mg IVPB daily -Urine Antigens -Flu Swab negative -Bcx/Ucx pending -Respiratory panel -Lactic acid pending #Right lateral thalamic infarct-- r/o acute CVA -Aspirin 81 mg daily -Lipitor 80 mg po hs -Lipid panel pending -HbA1c pending -Echo pending -Cartoid U/s pending -TSH, B12, Folate pending -Neurology consult, Dr. Lehman -Consider obtaining an MRI brain, will default to neuro recs #CHF -Echo pending -Continue lasix 20 mg po q2days -Given leg swelling will order duplex of b/l LE #Seziure d/o -Continue Keppra 1500 mg po bid -Continue Depakote 1000 mg po am and 750 mg po hs #Hypothyroidism -Check TSH -Continue synthroid 50 mcg po daily #FEN/GI -No fluids given 2/2 to CHF history -WNL -Sodium controlled diet #PPx -SCDs for DVT ppx -No GI ppx given at this time Case discussed with medical team. Visit type - Emergency Visit Emergency Visit: Yes ED Registration Date: 04/19/17 Care time: The patient presented to the Emergency Department on the above date and was hospitalized for further evaluation of their emergent condition. - New Patient This patient is new to me today: Yes Date on this admission: 04/19/17 - Critical Care Critical Care patient: No
[2017-04-19 05:51] LABS: PLATELET COMMENTS NO CLUMPING NOTED; PLATELET COUNT 99 K/MM3 (134-434)
[2017-04-19] MEDS: LEVOTHYROXINE NA 50 MCG TABLET (FP) PO SCH (06:54)
[2017-04-19] MEDS: DIVALPROEX NA *ER* EXTEND REL 500 MG TABLET.SA (FP) PO SCH (06:55)
--- NOTE | 2017-04-19 07:42 | MSN ---
Progress Note (short form) - Note Progress Note: CC: chills/shaking HPI: 66 y/o F with PMHx of osteoporosis, CHF, venous stasis, seizures, and depression, who was sent from [facility] for "shaking all day". ED not able to obtain adequate history due to language barrier. Pt admitted with fever of 102.5 and HR of 98 with no leukocytosis. Pt seen and examined today. Pt complains of cough and states she has pain in her chest when coughing. Patient denies SOB, vomiting. Last Vital Signs Temp Pulse Resp BP Pulse Ox 97.9 F 83 22 156/66 96 04/19/17 04:02 04/19/17 03:16 04/19/17 03:16 04/19/17 03:16 04/19/17 06:00 Head: no b/l jvd. Neurological: CBC, BMP 04/19/17 00:33 04/19/17 00:33 Abnormal Lab Results 04/19/17 04/19/17 04/19/17 00:33 00:33 00:47 MCV 100.0 H MCH 34.1 H Plt Count 99 L D MPV 7.2 L D Monocytes % 14.6 H BUN 23 H D Urine Ketones Trace H Active Medications Generic Name Dose Route Start Last Admin Trade Name Freq PRN Reason Stop Dose Admin Aspirin 81 mg 04/19/17 10:00 Asa - PO DAILY ELIS Atorvastatin Calcium 80 mg 04/19/17 22:00 Lipitor - PO HS ELIS Divalproex Sodium 750 mg 04/19/17 22:00 Depakote *Er* - PO HS ELIS Divalproex Sodium 1,000 mg 04/19/17 07:00 04/19/17 06:55 Depakote *Er* - PO 1,000 mg AM ELIS Administration Furosemide 20 mg 04/19/17 10:00 Lasix - PO Q2D@1000 ELIS Levofloxacin 500 mg in 100 mls @ 100 mls/hr 04/19/17 10:00 Levaquin 500 Mg Premixed Ivpb - IVPB 04/19/17 10:59 DAILY ONE Levetiracetam 1,500 mg 04/19/17 10:00 Keppra - PO BID ELIS Levothyroxine Sodium 50 mcg 04/19/17 07:00 04/19/17 06:54 Synthroid - PO 50 mcg DAILY@0700 ELIS Administration Sodium Chloride 500 ml 04/18/17 23:47 Normal Saline - IV Q20M PRN MAP<65mm Hg OR SBP <90 ASSESSMENT PLAN 1. SIRS 2/2 pneumonia vs. acute bronchitis due to pneumonia - CXR on arrival shows atelectasis/lower lobe infiltrates at bases. - Patient admitted with fever, tachycardic, no leukocytosis or tachypnea. - Continue empiric Levaquin 2. Possible recent CVA - Head CT shows right lateral thalamic infarct, unsure if recent or old - Dr. Lehman, neuro, consulted - ASA, Lipitor to prevent recurrent infarct - f/u lipid panel and HbA1c to stratify risk factors, Echo, carotid doppler to r /o etiology 4. CHF - Continue Lasix - Sodium controlled diet 5. Hypothyroidism - Continue Levothyroxine - f/u TSH, B12, Folate to r/o anemia contributing to symptoms 6. Seizure - Continue Levetiracetam and Depakote 7. DVT PPX - SCDs Dispo: Admit to med-surg.
[2017-04-19 09:00] LABS: URINE LEUK ESTERASE NEGATIVE (NEGATIVE)
[2017-04-19 09:08] LABS: BASO % 0.2 % (0-2.0); MCH 33.1 pg (25.7-33.7); MCHC 33.5 g/dl (32.0-36.0); MEAN PLT VOLUME 6.5 fl (7.5-11.1); NEUT % 52.6 % (42.8-82.8); PLATELET COUNT 74 K/MM3 (134-434); RDW 14.3 % (11.6-15.6)
[2017-04-19] MEDS ORDERED: LEVOFLOXACIN 500 MG IVPB 500 MG/100 ML BAG IVPB SCH (10:00)
[2017-04-19] MEDS ORDERED: ENOXAPARIN NA (PORCINE) 40 MG/0.4 ML DISP.SYRIN SQ SCH (10:00)
[2017-04-19] MEDS ORDERED: ASPIRIN 81 MG CHEWABLE TABLETS PO SCH (10:00)
[2017-04-19 10:11] LABS: ANION GAP 10 (8-16); CALCIUM 8.1 mg/dL (8.5-10.1); CO2 28 mmol/L (21-32); CREATININE 0.8 mg/dL (0.55-1.02); GLUCOSE,RANDOM 81 mg/dL (74-106); MAGNESIUM 2.1 mg/dL (1.8-2.4); PHOSPHOROUS 4.2 mg/dL (2.5-4.9)
[2017-04-19 10:21] LABS: THYROID STIMULATING HORMONE 8.57 uIU/ml (0.358-3.74)
[2017-04-19 11:04] LABS: FREE T4 1.12 ng/dl (0.76-1.46)
[2017-04-19] MEDS: FUROSEMIDE 20 MG TABLET (FP) PO SCH (11:21)
[2017-04-19] MEDS: CEFTRIAXONE 1 G/50 ML PREMIX 50 ML IVPB SCH (11:21)
[2017-04-19] MEDS: levETIRAcetam 500 MG TABLET (FP) PO SCH ×2 (11:26→21:46)
--- NOTE | 2017-04-19 12:06 | CON.PULM ---
Consult Consult Specialty:: PULMONARY Referred by:: Dr. Meraz Reason for Consultation:: pneumonia - History of Present Illness Chief Complaint: chills History of Present Illness: 66yo female with h/o CHF, seizure disorder, depression, hypothyroidism, osteoporosis who was transferred from assisted living after being found " shaking all day.". Pt is a poor historian, unable to provide reliable history at this time. She does report a cough but unable to elaborate further. Febrile to 102.5 on presentation and CXR showing a RLL infiltrate. Saturating well on nasal cannula. She states she is a never smoker. 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 Cardio/Vascular: Yes: CHF, Other (Venous stasis) Psych: Yes: Depression Musculoskeletal: Yes: Other (Osteoporosis) - Alcohol/Substance Use Hx Alcohol Use: No - Smoking History Smoking history: Unknown if ever smoked Have you smoked in the past 12 months: No Home Medications - Allergies Allergies/Adverse Reactions: Allergies Allergy/AdvReac Type Severity Reaction Status Date / Time No Known Allergies Allergy Verified 04/18/17 22:30 - Home Medications Home Medications: Ambulatory Orders Calcium Citrate [Calcitrate] 200 mg PO DAILY 04/19/17 Divalproex *ER* [Depakote *ER* -] 1,000 mg PO AM 04/19/17 Divalproex *ER* [Depakote *ER* -] 750 mg PO HS 04/19/17 Ergocalciferol (Vitamin D2) [Vitamin D2] 50,000 unit PO WEEKLY 04/19/17 Furosemide [Lasix] 20 mg PO Q48H 04/19/17 Levetiracetam [Keppra -] 1,500 mg PO BID 04/19/17 Levothyroxine Sodium [Levo-T] 50 mcg PO DAILY 04/19/17 Review of Systems Unable to obtain ROS, reason: poor historian Physical Exam Vital Sings: Vital Signs Temperature 98 F 04/19/17 11:50 Pulse Rate 92 H 04/19/17 11:50 Respiratory Rate 18 04/19/17 11:50 Blood Pressure 133/46 04/19/17 11:50 O2 Sat by Pulse Oximetry (%) 96 04/19/17 06:00 Constitutional: Yes: Calm Eyes: Yes: EOM Intact HENT: Yes: Atraumatic, Normocephalic Neck: Yes: Supple, Trachea Midline Cardiovascular: Yes: Regular Rate and Rhythm Respiratory: Yes: Diminished (decreased breath sounds at the bases) ...Clubbing: No Gastrointestinal: Yes: Normal Bowel Sounds, Soft. No: Tenderness Extremities: Yes: Other (chronic changes) Edema: No Neurological: Yes: Confusion Labs: CBC, BMP 04/19/17 08:30 04/19/17 08:30 Imaging - Results Chest X-ray: Report Reviewed, Image Reviewed (RLL infiltrate) Problem List - Problems (1) Pneumonia Code(s): J18.9 - PNEUMONIA, UNSPECIFIED ORGANISM Qualifiers: Pneumonia type: due to unspecified organism Laterality: right Lung location: lower lobe of lung Qualified Code(s): J18.1 - Lobar pneumonia, unspecified organism (2) CHF (congestive heart failure) Code(s): I50.9 - HEART FAILURE, UNSPECIFIED (3) Seizure disorder Code(s): G40.909 - EPILEPSY, UNSP, NOT INTRACTABLE, WITHOUT STATUS EPILEPTICUS (4) Depression Code(s): F32.9 - MAJOR DEPRESSIVE DISORDER, SINGLE EPISODE, UNSPECIFIED (5) Hypothyroidism Code(s): E03.9 - HYPOTHYROIDISM, UNSPECIFIED Assessment/Plan Pneumonia h/o CHF Hypothyroidism Depression Seizure Disorder - agree with current antibiotic coverage - send urine antigens - f/u cultures - will give gentle hydration as she appears dry - PO as tolerated - DVT prophylaxis Thank you for this consult Philip Richmond MD
[2017-04-19] MEDS ORDERED: SODIUM CHLORIDE 1,000 ML IV SCH (12:15)
[2017-04-19] MEDS ORDERED: PT OWN MED DRAWER 7, Y5N ONE (13:49)
[2017-04-19] MEDS: AZITHROMYCIN IVPB 250 MG in DEXTROSE 5%-WATER - 250 ML IVPB SCH (14:12)
--- NOTE | 2017-04-19 14:34 | EKG ---
Test Reason : Blood Pressure : / mmHG Vent. Rate : 091 BPM Atrial Rate : 091 BPM P-R Int : 126 ms QRS Dur : 074 ms QT Int : 372 ms P-R-T Axes : 051 059 067 degrees QTc Int : 457 ms SINUS RHYTHM WITH OCCASIONAL PREMATURE VENTRICULAR COMPLEXES POSSIBLE LEFT ATRIAL ENLARGEMENT SEPTAL INFARCT , AGE UNDETERMINED ABNORMAL ECG WHEN COMPARED WITH ECG OF 12-APR-2017 11:29, PREMATURE VENTRICULAR COMPLEXES ARE NOW PRESENT SEPTAL INFARCT IS NOW PRESENT T WAVE INVERSION NOW EVIDENT IN ANTERIOR LEADS Confirmed by DAYLIN CASTRO, PARVEEN ([id number]) on 04/19/2017 2:33:44 PM Referred By: Confirmed By:PARVEEN MAO MD
--- NOTE | 2017-04-19 14:59 | CON.NEURO ---
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 Cardio/Vascular: Yes: CHF, Other (Venous stasis) Psych: Yes: Depression Musculoskeletal: Yes: Other (Osteoporosis) - Alcohol/Substance Use Hx Alcohol Use: No - Smoking History Smoking history: Unknown if ever smoked Have you smoked in the past 12 months: No Home Medications - Allergies Allergies/Adverse Reactions: Allergies Allergy/AdvReac Type Severity Reaction Status Date / Time No Known Allergies Allergy Verified 04/18/17 22:30 - Home Medications Home Medications: Ambulatory Orders Calcium Citrate [Calcitrate] 200 mg PO DAILY 04/19/17 Divalproex *ER* [Depakote *ER* -] 1,000 mg PO AM 04/19/17 Divalproex *ER* [Depakote *ER* -] 750 mg PO HS 04/19/17 Ergocalciferol (Vitamin D2) [Vitamin D2] 50,000 unit PO WEEKLY 04/19/17 Furosemide [Lasix] 20 mg PO Q48H 04/19/17 Levetiracetam [Keppra -] 1,500 mg PO BID 04/19/17 Levothyroxine Sodium [Levo-T] 50 mcg PO DAILY 04/19/17 Physical Exam-Neuro Vital Signs: Vital Signs Temperature 98 F 04/19/17 11:50 Pulse Rate 92 H 04/19/17 11:50 Respiratory Rate 18 04/19/17 11:50 Blood Pressure 133/46 04/19/17 11:50 O2 Sat by Pulse Oximetry (%) 96 04/19/17 06:00 Labs: CBC, BMP 04/19/17 08:30 04/19/17 08:30 INR, PTT INR 1.04 (0.82-1.09) 04/19/17 00:33 Assessment/Plan cc 66 year old female resident of Assisted Living Facility came with shivering due to fever and found right thalamic Infarct HPI 66 year old female, indian decent . History was taken with help of her sister. She has history of CHF, Osteoporosis, Htn, Epilepsy since biirth. She has not had any seizures in 10 years. 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 She had ct scan done and , it showed there is faint area of ischemic lesion on right thalamic region. There is no dysphagia, dysarthria or diplopia. There is no numbness or hemiparesis. Patient was started on aspirin and statin. I was asked to see if she had stroke. She is waiting for mri and carotid ultrasound. Past Medication as above. NKDA Home Medications: Calcium Citrate [Calcitrate] 200 mg PO DAILY 04/19/17 Divalproex *ER* [Depakote *ER* -] 1,000 mg PO AM 04/19/17 Divalproex *ER* [Depakote *ER* -] 750 mg PO HS 04/19/17 Ergocalciferol (Vitamin D2) [Vitamin D2] 50,000 unit PO WEEKLY 04/19/17 Furosemide [Lasix] 20 mg PO Q48H 04/19/17 Levetiracetam [Keppra -] 1,500 mg PO BID 04/19/17 Levothyroxine Sodium [Levo-T] 50 mcg PO DAILY 04/19/17 FH,ROS,SH reviewed in chart Neurological Examination Alert Oriented x 3 , speech is normal CN eomi, pupils is reactive ,no facial asymmetry Motor 5/5 all four extremities Sensation is normal Reflex are diminished in lower extremity CT head showed there is faint ischemic lesion on right thalamic A/P 1.- Clinically less likley to be stroke, there is no symptoms of signs of stroke. would follow up on mri of brain and carotid ultrasound. Continue aspirin and statin, for now .once mri is negative , no need to continue statin. 2. History of Generalized Epilepsy, seizures controlled on Keppra and Depakote. Advise to continue . No need for any further testing or change in Medication at this time Thank you so much aMlachi Lehman
[2017-04-19] MEDS: ACETAMINOPHEN 325 MG TABLET (FP) PO PRN (19:08)
[2017-04-19] MEDS: DIVALPROEX NA *ER* EXTEND REL 250 MG TABLET.SA PO SCH (21:46)
[2017-04-19] MEDS ORDERED: ATORVASTATIN CA 80 MG TABLET (FP) PO SCH (22:00)
[2017-04-20] MEDS: DIVALPROEX NA *ER* EXTEND REL 500 MG TABLET.SA (FP) PO SCH (06:26)
[2017-04-20] MEDS: LEVOTHYROXINE NA 50 MCG TABLET (FP) PO SCH (06:26)
[2017-04-20] MEDS: ACETAMINOPHEN 325 MG TABLET (FP) PO PRN (06:40)
[2017-04-20 07:52] LABS: BASO % 0.2 % (0-2.0); MCH 33.5 pg (25.7-33.7); MCHC 34.3 g/dl (32.0-36.0); MEAN CELL VOLUME 97.7 fl (80-96); MEAN PLT VOLUME 6.6 fl (7.5-11.1); NEUT % 44.4 % (42.8-82.8); PLATELET COUNT 68 K/MM3 (134-434); RDW 14.3 % (11.6-15.6); WHITE BLOOD COUNT 5.1 K/mm3 (4.0-10.0)
[2017-04-20 08:20] LABS: ANION GAP 7 (8-16); CALCIUM 7.9 mg/dL (8.5-10.1); CO2 30 mmol/L (21-32); CREATININE 0.8 mg/dL (0.55-1.02); GLUCOSE,RANDOM 86 mg/dL (74-106); MAGNESIUM 2.2 mg/dL (1.8-2.4); PHOSPHOROUS 3.2 mg/dL (2.5-4.9)
--- NOTE | 2017-04-20 08:43 | PN ---
Progress Note (short form) - Note Progress Note: 66 year old female, tanz[place] decent . History was taken with help of her sister. She has history of CHF, Osteoporosis, Htn, Epilepsy since biirth. She has not had any seizures in 10 years. 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 She had ct scan done and , it showed there is faint area of ischemic lesion on right thalamic region. There is no dysphagia, dysarthria or diplopia. There is no numbness or hemiparesis. carotid ultrasound is pending and mri could not be done last night. Neurological Examination Alert Oriented x 3 , speech is normal CN eomi, pupils is reactive ,no facial asymmetry Motor 5/5 all four extremities Sensation is normal Reflex are diminished in lower extremity CT head showed there is faint ischemic lesion on right thalamic carotid ultrasound and mri fo brain is pending. A/P 1.- Clinically less likley to be stroke, there is no symptoms of signs of stroke. would follow up on mri of brain and carotid ultrasound. Continue aspirin and statin, for now .once mri is negative , no need to continue statin. 2. History of Generalized Epilepsy, seizures controlled on Keppra and Depakote. Advise to continue . No need for any further testing or change in Medication at this time Thank you so much Malachi Lehman
[2017-04-20] MEDS: levETIRAcetam 500 MG TABLET (FP) PO SCH ×2 (10:29→23:56)
[2017-04-20] MEDS: CEFTRIAXONE 1 G/50 ML PREMIX 50 ML IVPB SCH (10:29)
[2017-04-20] MEDS: AZITHROMYCIN IVPB 250 MG in DEXTROSE 5%-WATER - 250 ML IVPB SCH (11:06)
[2017-04-20] MEDS: ALBUTEROL SO4 0.083% IH SOL 2.5 MG/3 ML VIAL.NEB. NEB PRN (11:54)
--- NOTE | 2017-04-20 13:25 | PN ---
Progress Note, Physician History of Present Illness: PULMONARY COMFORTABLE,-RESP DISTRESS - Current Medication List Current Medications: Active Medications Acetaminophen (Tylenol -) 650 mg PO Q6H PRN PRN Reason: FEVER OR PAIN Last Admin: 04/20/17 06:40 Dose: 650 mg Albuterol Sulfate (Ventolin 0.083% Nebulizer Soln -) 1 amp NEB Q4H PRN PRN Reason: SHORT OF BREATH/WHEEZING Last Admin: 04/20/17 11:54 Dose: 1 amp Atorvastatin Calcium (Lipitor -) 80 mg PO HS [facility] Last Admin: 04/19/17 21:46 Dose: 80 mg Divalproex Sodium (Depakote *Er* -) 750 mg PO HS [facility] Last Admin: 04/19/17 21:46 Dose: 750 mg Divalproex Sodium (Depakote *Er* -) 1,000 mg PO AM [facility] Last Admin: 04/20/17 06:26 Dose: 1,000 mg Furosemide (Lasix -) 20 mg PO Q2D@1000 [facility] Last Admin: 04/19/17 11:21 Dose: 20 mg CEFTRIAXONE 1 G/50 ML PREMIX (Ceftriaxone 1 Gm-D5w Bag) 50 mls @ 100 mls/hr IVPB DAILY [facility] Last Admin: 04/20/17 10:29 Dose: 100 mls/hr Azithromycin 250 mg/ Dextrose 250 mls @ 250 mls/hr IVPB DAILY [facility] Stop: 04/23/17 11:29 Last Admin: 04/20/17 11:06 Dose: 250 mls/hr Levetiracetam (Keppra -) 1,000 mg PO BID [facility] Last Admin: 04/20/17 10:29 Dose: 1,000 mg Levothyroxine Sodium (Synthroid -) 25 mcg PO DAILY@0700 [facility] - Objective Vital Signs: Vital Signs Temperature 98.1 F 04/20/17 10:00 Pulse Rate 89 04/20/17 10:00 Respiratory Rate 18 04/20/17 10:00 Blood Pressure 132/60 04/20/17 10:00 O2 Sat by Pulse Oximetry (%) 97 04/20/17 10:00 Constitutional: Yes: Well Nourished, Calm Eyes: Yes: WNL HENT: Yes: WNL Neck: Yes: WNL Cardiovascular: Yes: Regular Rate and Rhythm, S1, S2 Respiratory: Yes: Rhonchi (SCATTERED CESAR RHONCHI) Gastrointestinal: Yes: Normal Bowel Sounds, Soft Extremities: Yes: WNL Edema: Yes Labs: CBC, BMP 04/20/17 06:00 04/20/17 06:00 INR, PTT INR 1.04 (0.82-1.09) 04/19/17 00:33 Assessment/Plan Problem List - Problems (1) Pneumonia Code(s): J18.9 - PNEUMONIA, UNSPECIFIED ORGANISM Qualifiers: Pneumonia type: due to unspecified organism Laterality: right Lung location: lower lobe of lung Qualified Code(s): J18.1 - Lobar pneumonia, unspecified organism (2) CHF (congestive heart failure) Code(s): I50.9 - HEART FAILURE, UNSPECIFIED (3) Seizure disorder Code(s): G40.909 - EPILEPSY, UNSP, NOT INTRACTABLE, WITHOUT STATUS EPILEPTICUS (4) Depression Code(s): F32.9 - MAJOR DEPRESSIVE DISORDER, SINGLE EPISODE, UNSPECIFIED (5) Hypothyroidism Code(s): E03.9 - HYPOTHYROIDISM, UNSPECIFIED Assessment/Plan Pneumonia h/o CHF Hypothyroidism Depression Seizure Disorder - current antibiotic coverage - gentle hydration as she appears dry - PO as tolerated - DVT prophylaxis - f/u chest x-rays DR PIERRE
--- NOTE | 2017-04-20 16:29 | PN ---
Physical Exam: SUBJECTIVE: Patient seen and examined. She dose not speak much, mostly sleeps. Has wet productive cough, is arousable and awake OBJECTIVE: Vital Signs Period Temp Pulse Resp BP Sys/Villa Pulse Ox Last 24 Hr 98.0 F-102.4 F 80-97 18-18 113-138/48-86 96-97 PE Neuro: alert, awake, cn 2-12intact Pulm: basilar crackles, diminished, wheeze CV: s1 s2 rrr no mrg Abd: s nt nd + bs Ext: warm, le ext venous stasis changes Skin: + diffuse maculopapular rash to upper ext, chest, abdomen, upper ext Laboratory Results - last 24 hr 04/19/17 04/20/17 04/20/17 08:30 06:00 06:00 WBC 5.1 RBC 3.69 Hgb 12.4 Hct 36.1 MCV 97.7 H MCH 33.5 MCHC 34.3 RDW 14.3 Plt Count 68 L MPV 6.6 L Neutrophils % 44.4 Lymphocytes % 40.8 H D Monocytes % 14.6 H Eosinophils % 0.0 Basophils % 0.2 Sodium 135 L Potassium 4.0 Chloride 98 Carbon Dioxide 30 Anion Gap 7 L BUN 20 H Creatinine 0.8 Random Glucose 86 Calcium 7.9 L Phosphorus 3.2 D Magnesium 2.2 Free T3 1.9 L Active Medications Generic Name Dose Route Start Last Admin Trade Name Freq PRN Reason Stop Dose Admin Acetaminophen 650 mg 04/19/17 19:01 04/20/17 06:40 Tylenol - PO 650 mg Q6H PRN Administration FEVER OR PAIN Albuterol Sulfate 1 amp 04/20/17 11:35 04/20/17 11:54 Ventolin 0.083% Nebulizer Soln - NEB 1 amp Q4H PRN Administration SHORT OF BREATH/WHEEZING Atorvastatin Calcium 80 mg 04/19/17 22:00 04/19/17 21:46 Lipitor - PO 80 mg HS ELIS Administration Divalproex Sodium 750 mg 04/19/17 22:00 04/19/17 21:46 Depakote *Er* - PO 750 mg HS ELIS Administration Divalproex Sodium 1,000 mg 04/19/17 07:00 04/20/17 06:26 Depakote *Er* - PO 1,000 mg AM ELIS Administration Furosemide 20 mg 04/19/17 10:00 04/19/17 11:21 Lasix - PO 20 mg Q2D@1000 ELIS Administration CEFTRIAXONE 1 G/50 ML PREMIX 50 mls @ 100 mls/hr 04/19/17 10:45 04/20/17 10: 29 Ceftriaxone 1 Gm-D5w Bag IVPB 100 mls/hr DAILY ELIS Administration Azithromycin 250 mg/ Dextrose 250 mls @ 250 mls/hr 04/19/17 11:30 04/20/17 11 :06 IVPB 04/23/17 11:29 250 mls/hr DAILY ELIS Administration Levetiracetam 1,000 mg 04/19/17 11:15 04/20/17 10:29 Keppra - PO 1,000 mg BID ELIS Administration Levothyroxine Sodium 25 mcg 04/20/17 08:52 Synthroid - PO DAILY@0700 ELIS Assessment: 66 year old female with a significant past medical history of osteoporosis, CHF, venous stasis, seizures, depression presenting with shaking chills admitted for sepsis 2/2 to CAP Plan: 1. Community Acquired pna - Day 2 ceftriaxone, azithro will DC for possible allergy/adverse rxn - Start levaquin tomorrow - Start medrol 40mg q8hr 2. Maculopapular rash - Appears as allergic reaction, unclear if abx or other meds - Stop abx - Start medrol and pepcid 20mg iv x1 now - Monitor, pt is not itching nor has airway compromise 3. Hypothyroidism - Decrease synthroid 25mcg - Check TSH in 6 weeks 4. CHF - Lasix 20mg q2days - CXR in AM 5. Seizure/Generalized Epilepsy - Decreased Keppra 1000mg BID (renal dose) - Depacoke BID 6. Metabolic encephalopathy - Likely due to pna, not CVA 7. R. Lateral Thalamic Infarct - MRI negative for acute CVA - Per neuro, stop statin Visit type - Emergency Visit Emergency Visit: Yes ED Registration Date: 04/19/17 Care time: The patient presented to the Emergency Department on the above date and was hospitalized for further evaluation of their emergent condition. - New Patient This patient is new to me today: Yes Date on this admission: 04/20/17 - Critical Care Critical Care patient: No - Discharge Referral Referred to [facility] Med P.C.: No
[2017-04-20] MEDS ORDERED: FAMOTIDINE IV 20 MG/12 ML VIAL IVPUSH ONE (16:48)
[2017-04-20] MEDS: methylPREDNISolone NA SUCC 40 MG/1 ML VIAL IVPUSH SCH (17:00)
[2017-04-20] MEDS ORDERED: ACETAMINOPHEN 1000 MG/100 ML VIAL (NON FORMULARY) IVPB ONE (17:01)
[2017-04-20] MEDS ORDERED: PT OWN MED DRAWER 7, Y5N ONE (23:51)
[2017-04-20] MEDS: DIVALPROEX NA *ER* EXTEND REL 250 MG TABLET.SA PO SCH (23:56)
[2017-04-21] MEDS ORDERED: FAMOTIDINE IV 20 MG/12 ML VIAL IVPUSH ONE (00:45)
[2017-04-21] MEDS: methylPREDNISolone NA SUCC 40 MG/1 ML VIAL IVPUSH SCH ×2 (01:40→10:33)
[2017-04-21] MEDS ORDERED: PT OWN MED DRAWER 7, Y5N ONE ×3 (06:52→22:14)
[2017-04-21] MEDS: LEVOTHYROXINE NA 50 MCG TABLET (FP) PO SCH (06:56)
[2017-04-21] MEDS: DIVALPROEX NA *ER* EXTEND REL 500 MG TABLET.SA (FP) PO SCH (06:57)
--- NOTE | 2017-04-21 09:06 | PN ---
Progress Note (short form) - Note Progress Note: 66 year old female, burkin[place] decent . History was taken with help of her sister. She has history of CHF, Osteoporosis, Htn, Epilepsy since biirth. She has not had any seizures in 10 years. 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 She had ct scan done and , it showed there is faint area of ischemic lesion on right thalamic region. There is no dysphagia, dysarthria or diplopia. There is no numbness or hemiparesis. Her mri of brain was unremarkable. Neurological Examination Alert Oriented x 3 , speech is normal CN eomi, pupils is reactive ,no facial asymmetry Motor 5/5 all four extremities Sensation is normal Reflex are diminished in lower extremity CT head showed there is faint ischemic lesion on right thalamic MRI of brain was unremarkable, and mri showed ?NPH A/P 1.- No evidence of stroke, may stop aspirin and statin , if not needed. 2. Abnormal MRI findings suggestive of NPH. NPH is very questionable diagnosis and given she had seizures since childhood and She has history of epilepsy for a long time. Large ventricle could be a baseline. I do not think, she would benefit from any surgical intervention at this time. 2. History of Generalized Epilepsy, seizures controlled on Keppra and Depakote. Advise to continue . No need for any further testing or change in Medication at this time Thank you so much Malachi Lehman
[2017-04-21 09:10] LABS: MCH 32.7 pg (25.7-33.7); MEAN CELL VOLUME 96.4 fl (80-96); MEAN PLT VOLUME 7.3 fl (7.5-11.1); PLATELET COUNT 74 K/MM3 (134-434); RDW 14.2 % (11.6-15.6); WHITE BLOOD COUNT 3.9 K/mm3 (4.0-10.0)
[2017-04-21 09:29] LABS: ANION GAP 8 (8-16); CALCIUM 8.4 mg/dL (8.5-10.1); CO2 30 mmol/L (21-32); CREATININE 0.6 mg/dL (0.55-1.02); GLUCOSE,RANDOM 127 mg/dL (74-106); MAGNESIUM 2.4 mg/dL (1.8-2.4); PHOSPHOROUS 3.2 mg/dL (2.5-4.9)
[2017-04-21] MEDS ORDERED: LEVOFLOXACIN 500 MG IVPB 500 MG/100 ML BAG IVPB SCH (10:00)
--- NOTE | 2017-04-21 10:29 | PN ---
Progress Note (short form) - Note Progress Note: PULMONARY More alert, awake today. No fevers recorded. Last Vital Signs Temp Pulse Resp BP Pulse Ox 98.1 F 67 20 131/56 92 L 04/21/17 06:00 04/21/17 06:00 04/21/17 06:00 04/21/17 06:00 04/20/17 21:00 Gen: more alert, awake, breathing nonlabored Heart: RRR Lung: decreased breath sounds at the bases Abd: soft, nontender Ext: no edema CBC, BMP 04/21/17 08:25 04/21/17 08:25 Active Medications Acetaminophen (Tylenol -) 650 mg PO Q6H PRN PRN Reason: FEVER OR PAIN Last Admin: 04/20/17 06:40 Dose: 650 mg Albuterol Sulfate (Ventolin 0.083% Nebulizer Soln -) 1 amp NEB Q4H PRN PRN Reason: SHORT OF BREATH/WHEEZING Last Admin: 04/20/17 11:54 Dose: 1 amp Divalproex Sodium (Depakote *Er* -) 750 mg PO HS [facility] Last Admin: 04/20/17 23:56 Dose: 750 mg Divalproex Sodium (Depakote *Er* -) 1,000 mg PO AM [facility] Last Admin: 04/21/17 06:57 Dose: 1,000 mg Furosemide (Lasix -) 20 mg PO Q2D@1000 [facility] Last Admin: 04/19/17 11:21 Dose: 20 mg Levofloxacin (Levaquin 500 Mg Premixed Ivpb -) 500 mg in 100 mls @ 100 mls/hr IVPB DAILY [facility] Levetiracetam (Keppra -) 1,000 mg PO BID [facility] Last Admin: 04/20/17 23:56 Dose: 1,000 mg Levothyroxine Sodium (Synthroid -) 25 mcg PO DAILY@0700 [facility] Last Admin: 04/21/17 06:56 Dose: 25 mcg Methylprednisolone Sodium Succinate (Solu-Medrol -) 40 mg IVPUSH Q8H-IV [facility] Last Admin: 04/21/17 01:40 Dose: 40 mg A/P Pneumonia h/o CHF Hypothyroidism Depression Seizure Disorder - continue antibiotics, can change to PO - can d/c medrol - inhaled bronchodilators as needed - PO as tolerated - DVT prophylaxis Problem List - Problems (1) Pneumonia Code(s): J18.9 - PNEUMONIA, UNSPECIFIED ORGANISM Qualifiers: Pneumonia type: due to unspecified organism Laterality: right Lung location: lower lobe of lung Qualified Code(s): J18.1 - Lobar pneumonia, unspecified organism (2) CHF (congestive heart failure) Code(s): I50.9 - HEART FAILURE, UNSPECIFIED (3) Seizure disorder Code(s): G40.909 - EPILEPSY, UNSP, NOT INTRACTABLE, WITHOUT STATUS EPILEPTICUS (4) Depression Code(s): F32.9 - MAJOR DEPRESSIVE DISORDER, SINGLE EPISODE, UNSPECIFIED (5) Hypothyroidism Code(s): E03.9 - HYPOTHYROIDISM, UNSPECIFIED
[2017-04-21] MEDS: levETIRAcetam 500 MG TABLET (FP) PO SCH ×2 (10:33→21:20)
[2017-04-21] MEDS: FUROSEMIDE 20 MG TABLET (FP) PO SCH (10:33)
--- NOTE | 2017-04-21 14:30 | PN ---
Teaching Attending Note Name of Resident: Addie Molina ATTENDING PHYSICIAN STATEMENT I saw and evaluated the patient. I reviewed the resident's note and discussed the case with the resident. I agree with the resident's findings and plan as documented. SUBJECTIVE:asymptomatic. dneies Cp, SOB, fever, chills, cough, N/V/C/D OBJECTIVE: Last Vital Signs Temp Pulse Resp BP Pulse Ox 97.9 F 82 18 122/58 98 04/21/17 14:06 04/21/17 14:06 04/21/17 14:06 04/21/17 14:06 04/21/17 09:00 General NAD CV S1 S2 RRR no murmur/rub/gallop Lungs crackles B/L bases poor inspiratory effort Extremities no pedal edema Skin faint macular papular rash across the chest, no excoriations ASSESSMENT AND PLAN: 66 year old female with a significant past medical history of osteoporosis, CHF , venous stasis, seizures, depression presenting with shaking chills admitted for sepsis 2/2 to CAP 1. Community Acquired PNA- clinically improved. 98% on RA. continues to have some crackles but afbrile. will give lasix dose today. switch levaquin to po. d/ c steroids. check pre and post. poulmonary on board. agrees with plan. 2. Maculopapular rash - Appears as allergic reaction, unclear if abx or other meds. now improved. no signs of pruritis or irritation. will d/c steroids. allergy of axithro and ceftriaxone entered into computer. 3. Hypothyroidism- elevated TSH. synthroid dosing was decreased. should have level checked in 6 weeks. 4. Acute Metabolic encephalopathy- liekly due to infection vs increased TSH. now resolved. MRI done 5. R lateral thalamic infarct- negative on MRI. statin and asa were d/c. neuro on board. 4. CHF- starting to develop some crackles on exam. CXR done this AM and negative for effusions. will cont lasix q48H. 5. Seizure/Generalized Epilepsy- no seizure like activity noted here. Leyda LOYD spoke with neurologist and notified him of decreased dosing due to renal function which he agreed with. will cont current dosing and increase as kidney function improves. 6. NPH seen on MRI- evaluated by neuro. no intervention at this time. 7. DVT ppx- unclear if reason not on anticoagulation. will start hep sq 8. DNR/DNI. D/c planning for the morning if continues to improve.
--- NOTE | 2017-04-21 14:37 | PN ---
Physical Exam: SUBJECTIVE: Patient seen and examined. Doing well. Spoke [place]. States her breathing is better and cough is better. OBJECTIVE: Vital Signs Period Temp Pulse Resp BP Sys/Villa Pulse Ox Last 24 Hr 97.9 F-98.2 F 67-85 18-20 122-159/56-65 92-98 GEN: AAOx3, NAD, Lying comfortably HEENT: PERRLA, EOMi CV: S1, S2, RRR LUNG: CTABL ABD: Soft, NT, ND, normoactive BS MSK: Chronic venous stasis ulcer, non-pitting edema NEURO: CN 2-12, no MSK and sensation deficits Active Medications Generic Name Dose Route Start Last Admin Trade Name Freq PRN Reason Stop Dose Admin Acetaminophen 650 mg 04/19/17 19:01 04/20/17 06:40 Tylenol - PO 650 mg Q6H PRN Administration FEVER OR PAIN Albuterol Sulfate 1 amp 04/20/17 11:35 04/20/17 11:54 Ventolin 0.083% Nebulizer Soln - NEB 1 amp Q4H PRN Administration SHORT OF BREATH/WHEEZING Amino Acids 30 ml 04/21/17 17:30 Prosource No Carb Liquid Pkt PO BID@0800,1730 ELIS Divalproex Sodium 750 mg 04/19/17 22:00 04/20/17 23:56 Depakote *Er* - PO 750 mg HS ELIS Administration Divalproex Sodium 1,000 mg 04/19/17 07:00 04/21/17 06:57 Depakote *Er* - PO 1,000 mg AM ELIS Administration Furosemide 20 mg 04/19/17 10:00 04/21/17 10:33 Lasix - PO 20 mg Q2D@1000 ELIS Administration Levetiracetam 1,000 mg 04/19/17 11:15 04/21/17 10:33 Keppra - PO 1,000 mg BID ELIS Administration Levofloxacin 500 mg 04/22/17 10:00 Levaquin PO DAILY ELIS Levothyroxine Sodium 25 mcg 04/20/17 08:52 04/21/17 06:56 Synthroid - PO 25 mcg DAILY@0700 ELIS Administration Multivitamins/Minerals/Vitamin C 1 tab 04/21/17 14:15 Tab-A-Vit - PO DAILY [facility]IS ASSESSMENT/PLAN: Assessment: 66 year old female with a significant past medical history of osteoporosis, CHF, venous stasis, seizures, depression presenting with shaking chills admitted for sepsis 2/2 to CAP # RLL Pneumonia - Improving. Community acquired pneumonia vs Aspiration pneumonia. Patient at risk for aspiration with seizure disorder, though states she has not had seizure in years. On Levaquin 500mg PO daily Day 3 of total antibiotics. Nurses have noted coughing with thin liquids, so speech/swallow ordered to r/o aspiration. If continues to do well tmrw, can d/c home. # Allergic Reaction - Patient developed maculopapular rash when switched to Ceftriaxone/Azithromycin. Resolved after IV Medrol and Pepcid 20mg IV x1. Placed both antibiotics on allergy list and switched antibiotics to Levaquin. # R thalamic Infarct - MRI was negative, this infarct is chronic. Thus, no need for statin and aspirin. Carotid doppler neg, Echo neg, Lipid panel WNL # Diastolic CHF - Continue Lasix 20mg Q2 days. Currently not overloaded, crackles could represent consolidation. CXR does not appear congested # Thrombocytopenia - Fell with HSQ, HIT antibody negative, no bleeding, continue to monitor # Hypothyroidism - TSH high but T4 WNL, could be reactive hypo. Continue Synthroid 25mcg, no need for dose changes # Epilepsy - Continue home Depakote BID 1,000 + 750. Continue home dose Keppra 1 ,500mg BID. Was reduced to 1,000 since CrCl was between 50-80. Now with improved CrCl of +100, verified with pharmacy and patient can return to home dose. # FEN - No IVF, elec wnl, sodium controlled w/ prosure BID # PPX - Diogenes/SCDs, no pharm AC, no GI needed, Walked 20 feet with PT d/w Dr oJjo Molina MD - PGY1 Resident Internal Medicine Visit type - Emergency Visit Emergency Visit: No - New Patient This patient is new to me today: No - Critical Care Critical Care patient: No - Discharge Referral Referred to [facility] Med P.C.: No
--- NOTE | 2017-04-21 16:39 | CONSULT ---
Admitting History and Physical - Primary Care Physician PCP: Anna Uribe - Admission History of Present Illness: 66 year old female with a significant past medical history of osteoporosis, CHF , venous stasis, seizures, depression presenting with shaking chills admitted for sepsis. RLL Pneumonia - Improving. Community acquired pneumonia vs Aspiration pneumonia. Selected Entries 04/20/17 04/20/17 04/20/17 02:28 03:30 05:41 Breakfast Lunch Temperature 100.2 F H 98.4 F 99.8 F H 04/20/17 04/20/17 04/20/17 09:34 10:00 14:02 Breakfast 25% Lunch 25% Temperature 98.1 F 98.0 F 04/20/17 04/20/17 04/21/17 18:31 22:00 01:40 Breakfast Lunch Temperature 98.1 F 98.2 F 98.1 F 04/21/17 04/21/17 04/21/17 06:00 10:04 10:26 Breakfast 50% Lunch Temperature 98.1 F 98 F 04/21/17 04/21/17 12:57 14:06 Breakfast Lunch 25% Temperature 97.9 F Laboratory Tests 04/20/17 04/21/17 06:00 08:25 WBC 5.1 3.9 L History Source: Patient, Family Member, Medical Record Limitations to Obtaining History: Language Barrier - Past Medical History ATHLETIC EVENTS [employer]ER: Yes: Seizure Cardiovascular: Yes: CHF, Other (Venous stasis) Psych: Yes: Depression Musculoskeletal: Yes: Other (Osteoporosis) - Advance Directives Advance Directives: Yes: Health Care Proxy, MOLST - Smoking History Smoking history: Unknown if ever smoked Have you smoked in the past 12 months: No - Alcohol/Substance Use Hx Alcohol Use: No History - Admission Reason For Visit: PNEUMONIA - Diagnostics X-ray: Report Reviewed - General Mental Status: Alert and Oriented, Awake and Alert, Able to Follow Commands Attention: Intact Ability to Follow Directions: Fair Head/Neck Control: WFL - Hearing Hearing: Impaired Hearing Aide: No With Patient: No Speech Evaluation - Communication Primary Language: ARMENIAN Oral Expression Ability: Yes: Mild Impairment - Speech Production Intelligibility: Yes: Mildly Impaired - Speech Characteristics Voice Loudness: Excessive Variation Voice Pitch: Yes: Excessive Variation, Pitch Breaks Voice Phonatory-based Quality: Yes: Harsh, Dysphonia Speech Pattern: Impaired Speech Clarity: < 75% Nasal Resonance: Normal Articulation: Yes: Precise - Language/Verbal Expression Functional Communication Status: Yes: WNL - Swallow Evaluation/Bedside Assessment Current Nutritional Intake: Regular, Thin Liquids, Other (Downgraded to soft/ chopped/nectar TL by RD) Oral Secretions: Yes: WFL Facial Symmetry at Rest: Symmetrical Facial Symmetry on Retraction: Symmetrical Against Resistance Opening: Normal Against Resistance Closing: Normal Pucker Lips: Normal Smile: Normal Lingual Movement: Normal, Symmetric Lingual Speed of Movement: Normal Lingual Movement Strgth Against Opposition: Normal Lingual Movement Characteristics: Normal Velopharyngeal Movement: Normal Laryngeal Movement: Able to Palpate, Labored,delay initiation Rate of Intake: WFL Bolus Size: WFL Chewing: WFL Oral Prep Time: WFL A-P Transit: WFL Pocketing: None Timing of Swallow: Delayed Coughing/Throat Clear: Yes (intermittent with and without po intake) Recommendations - Speech Evaluation, Impression/Plan Impression: Cough intermittent with and without po intake. Dysphonia with pitch breaks. Noted eye opening and coughing on saliva. Reported coughing more with po intake.Suspect oral pharyngeal dyscoordination with vocal cord dysfunction with possible intermittent aspiration. - Dysphagia Impressions/Plan Dysphagia Impressions: Mild Impairment, Moderate Impairment, Risk of Aspiration *Silent aspiration: cannot be R/O at bedside Dysphagia Treatment Plan: Small Bites, Chin Tuck/Down, Safe Rate, 1/2 tsp. at a time, Elevate HOB during feed Recommendations: Modified Barium Swallow - Recommendations Diet Consistency: Other (Soft/chopped) Medication Administration: Crushed with applesauce Liquids: [place] Thick
[2017-04-21] MEDS: AMINO ACIDS/PROTEIN HYDROLYS 30 ML LIQUID.PKT PO SCH (19:01)
[2017-04-21] MEDS: MULTIVITAMINS (DAILY MVI) TABLET (FP) PO SCH (19:02)
[2017-04-21] MEDS ORDERED: guaiFENesin/CODEINE 10 ML UNIT-DOSE CUPS PO ONE (19:15)
[2017-04-21] MEDS: ALBUTEROL SO4 0.083% IH SOL 2.5 MG/3 ML VIAL.NEB. NEB PRN (19:21)
[2017-04-21] MEDS ORDERED: PANTOPRAZOLE SODIUM 40 MG VIAL IVPUSH ONE (19:46)
[2017-04-21] MEDS ORDERED: BENZOCAINE/MENTH/CETYLPYRD CL 1 EACH LOZENGE MM PRN (20:30)
[2017-04-21] MEDS: HEPARIN NA (PORCINE) 5,000 UNITS/ML 1ML VIAL SQ SCH (21:26)
[2017-04-21] MEDS ORDERED: DIVALPROEX SODIUM 125 MG SPRINKLE CAPS (FP) PO ONE (22:00)
[2017-04-21] MEDS ORDERED: RANITIDINE HCL 150 MG TABLET (FP) PO SCH (22:00)
[2017-04-21] MEDS ORDERED: VALPROATE SODIUM 250 MG/5 ML UNIT DOSE CUP PO SCH (22:00)
[2017-04-22] MEDS: LEVOTHYROXINE NA 50 MCG TABLET (FP) PO SCH (06:26)
[2017-04-22] MEDS: VALPROATE SODIUM 250 MG/5 ML UNIT DOSE CUP PO SCH ×2 (06:27→22:22)
[2017-04-22] MEDS: LEVOFLOXACIN 500 MG TABLET (FP) PO SCH (06:27)
[2017-04-22] MEDS: ALBUTEROL SO4 0.083% IH SOL 2.5 MG/3 ML VIAL.NEB. NEB SCH ×3 (07:09→16:15)
--- NOTE | 2017-04-22 07:18 | PN ---
Physical Exam: SUBJECTIVE: Patient seen and examined well. Still coughing. Nurses state that last night the patient would cough after thin liquids, had to be suctioned. No CXR performed. Modified barium for today. OBJECTIVE: Vital Signs Period Temp Pulse Resp BP Sys/Villa Pulse Ox Last 24 Hr 97.6 F-100 F 70-82 18-20 104-131/50-64 93-98 GEN: AAOx3, NAD, Lying comfortably HEENT: PERRLA, EOMi CV: S1, S2, RRR LUNG: Bibasilar rhonchi with inspiratory and expiratory wheezing ABD: Soft, NT, ND, normoactive BS MSK: Chronic venous stasis ulcer, non-pitting edema NEURO: CN 2-12, no MSK and sensation deficits Active Medications Generic Name Dose Route Start Last Admin Trade Name Freq PRN Reason Stop Dose Admin Acetaminophen 650 mg 04/19/17 19:01 04/20/17 06:40 Tylenol - PO 650 mg Q6H PRN Administration FEVER OR PAIN Albuterol Sulfate 1 amp 04/22/17 06:56 04/22/17 07:09 Ventolin 0.083% Nebulizer Soln - NEB 1 amp QIDR ELIS Administration Amino Acids 30 ml 04/21/17 17:30 04/21/17 19:01 Prosource No Carb Liquid Pkt PO Not Given BID@0800,1730 [facility] Benzocaine/Menthol 1 each 04/21/17 20:30 Cepacol Lozenge - MM PRN PRN SORE THROAT Furosemide 20 mg 04/19/17 10:00 04/21/17 10:33 Lasix - PO 20 mg Q2D@1000 ELIS Administration Heparin Sodium (Porcine) 5,000 unit 04/21/17 22:00 04/21/17 21:26 Heparin - SQ 5,000 unit BID ELIS Administration Levetiracetam 1,500 mg 04/21/17 14:22 04/21/17 21:20 Keppra - PO 1,500 mg BID ELIS Administration Levofloxacin 500 mg 04/22/17 06:00 04/22/17 06:27 Levaquin - PO 500 mg DAILY@0600 ELIS Administration Levothyroxine Sodium 25 mcg 04/20/17 08:52 04/22/17 06:26 Synthroid - PO 25 mcg DAILY@0700 ELIS Administration Multivitamins/Minerals/Vitamin C 1 tab 04/21/17 14:15 04/21/17 19:02 Tab-A-Vit - PO Not Given DAILY [facility]IS Ranitidine HCl 150 mg 04/21/17 22:00 04/21/17 22:41 Zantac - PO 150 mg BID ELIS Administration Valproate Sodium 1,000 mg 04/22/17 07:00 04/22/17 06:27 Depakene - PO 1,000 mg DAILY@0700 ELIS Administration ASSESSMENT/PLAN: 66 year old female with a significant past medical history of osteoporosis, CHF , venous stasis, seizures, depression presenting with shaking chills admitted for sepsis 2/ to CAP # RLL Pneumonia - Improving. Likely secondary to Aspiration PNA. Patient has been coughing numerous times with meals. S/S evaluated the patient. Modified Barium report indicates stasis and risk of aspiration. Recommend dysphagic ground diet with 1 soft item per tray. Recommends swallowing therapy at the half-way. On Levaquin 500mg daily. Day 4 of total abx. Will also order chest physiotherapy and standing Duonebs. # Allergic Reaction - s/p Ceftriaxone and Azithromycin. Resolved after IV Medrol and Pepcid 20mg IV x1. Placed on allergy list # R thalamic Infarct - MRI neg, infarct is chronic. Thus, no need for statin and aspirin. Carotid doppler neg, Echo neg, Lipid panel WNL # Diastolic CHF - Continue Lasix 20mg Q2 days. Currently not overloaded. CXR does not appear congested # Thrombocytopenia - HIT antibody negative, no bleeding, continue to monitor # Hypothyroidism - TSH high but T4 WNL, could be reactive hypo. Continue Synthroid 25mcg, no need for dose changes # Epilepsy - Continue home Depakote BID 1,000 + 750HS. Continue Keppra 1,500mg BID. # FEN - No IVF, elec wnl, dysphagia w/ nectar thick # PPX - Diogenes/SCDs, Hep BID, no GI needed, Walked 20 feet with PT. # Dispo - Will need TERRY at discharge d/w Dr Jojo Molina MD - PGY1 Resident Internal Medicine Visit type - Emergency Visit Emergency Visit: No - New Patient This patient is new to me today: No - Critical Care Critical Care patient: No - Discharge Referral Referred to [facility] No
[2017-04-22 08:14] LABS: MCH 33.1 pg (25.7-33.7); MCHC 33.8 g/dl (32.0-36.0); MEAN PLT VOLUME 7.5 fl (7.5-11.1); PLATELET COUNT 86 K/MM3 (134-434); RDW 13.8 % (11.6-15.6); WHITE BLOOD COUNT 6.8 K/mm3 (4.0-10.0)
[2017-04-22 08:16] LABS: ANION GAP 8 (8-16); CALCIUM 8.3 mg/dL (8.5-10.1); CO2 32 mmol/L (21-32); CREATININE 0.7 mg/dL (0.55-1.02); GLUCOSE,RANDOM 85 mg/dL (74-106)
[2017-04-22] MEDS: HEPARIN NA (PORCINE) 5,000 UNITS/ML 1ML VIAL SQ SCH ×2 (09:20→22:22)
[2017-04-22] MEDS: MULTIVITAMINS (DAILY MVI) TABLET (FP) PO SCH (09:20)
[2017-04-22] MEDS: AMINO ACIDS/PROTEIN HYDROLYS 30 ML LIQUID.PKT PO SCH ×2 (09:20→17:35)
[2017-04-22] MEDS: levETIRAcetam 500 MG TABLET (FP) PO SCH ×2 (09:20→22:21)
[2017-04-22] MEDS ORDERED: predniSONE 20 MG TABLET (UD) PO ONE (10:30)
--- NOTE | 2017-04-22 11:22 | MSN ---
Progress Note (short form) - Note Progress Note: SUBJECTIVE CC: coughing, sputum production HPI: Patient seen and examined today at bedside. Overnight, patient coughed after thin liquids and required suctioning. Night team reported they did an informal speech and swallow and patient could tolerate some soft foods. Modified barium swallow was ordered for today. Pt underwent aerosol therapy this AM @ 7 AM which improved breathing; she still requires 3L O2 NC. Patient had no c/o today and states her cough has improved. She reports producing a moderate amount of yellow sputum with no blood. She denies feeling SOB, chest pain, n/v, or swelling in her legs that is increased from "normal". OBJECTIVE Last Vital Signs Temp Pulse Resp BP Pulse Ox 97.8 F 82 20 113/47 93 L 04/22/17 10:00 04/22/17 10:45 04/22/17 10:00 04/22/17 10:00 04/22/17 10:45 General: Pt appears stated age, resting comfortably in bed, intermittent coughing, breathing without use of accessory muscles. Eyes: PEERLA, EOMI. No APD. Throat: Moist mucus membranes. Moist tongue. Neck: No cervical lymphadenopathy. No B/L JVD. Lung: Moderate intensity rhonchi heard in L upper lobe. Inspiratory and expiratory wheezing heard all throughout b/l. Abdomen: Normoactive bowel sounds x 4 quadrants; nondistended, nontender to light and deep palpation, soft, no guarding or rigidity. Extremities: stasis dermatitis noted on B/L LE. 2+ pitting edema noted in B/L calves, worse on b/l dorsal feet. Neurological: CN II-XII grossly intact, intact to sensation all throughout UE and LE. Motor strength testing limited due to lack of patient understanding the task. Fuse Cutter strength 5/5. 2+ biceps reflex B/L. Unable to elicit patellar reflex in B/L LE. CBC, BMP 04/22/17 06:30 04/22/17 06:30 Abnormal Lab Results 04/22/17 04/22/17 06:30 06:30 RBC 3.37 L MCV 98.0 H Plt Count 86 L BUN 28 H Calcium 8.3 L Active Medications Generic Name Dose Route Start Last Admin Trade Name Freq PRN Reason Stop Dose Admin Acetaminophen 650 mg 04/19/17 19:01 04/20/17 06:40 Tylenol - PO 650 mg Q6H PRN Administration FEVER OR PAIN Albuterol Sulfate 1 amp 04/22/17 06:56 04/22/17 10:50 Ventolin 0.083% Nebulizer Soln - NEB 1 amp QIDR [facility] Administration Amino Acids 30 ml 04/21/17 17:30 04/22/17 09:20 Prosource No Carb Liquid Pkt PO 30 ml BID@0800,1730 [facility] Administration Benzocaine/Menthol 1 each 04/21/17 20:30 Cepacol Lozenge - MM PRN PRN SORE THROAT Furosemide 20 mg 04/19/17 10:00 04/21/17 10:33 Lasix - PO 20 mg Q2D@1000 [facility] Administration Heparin Sodium (Porcine) 5,000 unit 04/21/17 22:00 04/22/17 09:20 Heparin - SQ 5,000 unit BID [facility] Administration Levetiracetam 1,500 mg 04/21/17 14:22 04/22/17 09:20 Keppra - PO 1,500 mg BID [facility] Administration Levofloxacin 500 mg 04/22/17 06:00 04/22/17 06:27 Levaquin - PO 500 mg DAILY@0600 [facility] Administration Levothyroxine Sodium 25 mcg 04/20/17 08:52 04/22/17 06:26 Synthroid - PO 25 mcg DAILY@0700 [facility] Administration Multivitamins/Minerals/Vitamin C 1 tab 04/21/17 14:15 04/22/17 09:20 Tab-A-Vit - PO 1 tab DAILY [facility] Administration Valproate Sodium 1,000 mg 04/22/17 07:00 04/22/17 06:27 Depakene - PO 1,000 mg DAILY@0700 [facility] Administration Valproate Sodium 750 mg 04/22/17 22:00 Depakene - PO HS [facility] ASSESSMENT 66 y/o F with PMHx CHF, osteoporosis, venous stasis, seizures admitted for chills and sepsis 2/2 community acquired pneumonia. PLAN 1. Community Acquired Pneumonia - with risk factors of alf environment and age. - Coughing less frequently than upon admission; cough is now productive with yellow sputum. - Modified barium swallow was performed to evaluate for possible aspiration risk ; will f/u results and modify diet accordingly - Levaquin 500mg PO daily; now day 4 of abx. S. pneumo, Legionella negative. RSV pending, will f/u. 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 - pre & post O2 to evaluate need for 3L O2 NC; pre - 87%, post - 90%. Pt still requires O2 supplementation; 98% O2 on 3L O2 NC. - prednisone 40 mg once was given this AM; Chest PT 2. Thrombocytopenia - HIT antigen negative; improved from yesterday. No signs of bleeding. Repeat CBC until wnl. 3. Maculopapular rash - likely 2/2 allergy to abx given in ER (ceftriaxone/ azithromycin) - resolved. allergies added to list in system 4. R thalamic infarct - Neuro consult believes new infarct is unlikely. Clinically no sign of changes , MRI was negative. Carotid doppler, echo, lipid panel all wnl. No need to work up further. 5. Hypothyroidism - Elevated TSH, T4 wnl. Will need to recheck level in 6 weeks as outpt. No signs of hypothyroidism on physical exam. 6. Diastolic CHF - Continue home Lasix 20 mg q2days. CXR was negative for congestive changes; pt does not appear fluid overloaded. Edema in B/L LE appears chronic likely 2/2 venous stasis. 7. Epilepsy - coninue home depakote bid 1000 + 750, home keppra 1500 mg bid. Well controlled. No need to change dosing. 8. FEN - fluids - not needed, electrolytes wnl, nutrition - pt on prosource 30 ml PO BID and nectar thick liquid diet. 9. PPX - Jesse hose, SCDs, no GI PPX needed. Pt able to walk 20 ft with PT using rolling walker, on 3L O2 NC. Erendira Benoit, ANTONS-3.
--- NOTE | 2017-04-22 12:31 | PN ---
Teaching Attending Note Name of Resident: Addie Molina ATTENDING PHYSICIAN STATEMENT I saw and evaluated the patient. I reviewed the resident's note and discussed the case with the resident. I agree with the resident's findings and plan as documented. SUBJECTIVE:c/o cough with yellow sputum. denies Cp, SOB, fever, chills, N/V/C/D OBJECTIVE: Last Vital Signs Temp Pulse Resp BP Pulse Ox 97.8 F 82 20 113/47 93 L 04/22/17 10:00 04/22/17 10:45 04/22/17 10:00 04/22/17 10:00 04/22/17 10:45 General NAD Lungs diffuse rhonchi poor inspiratory effort Skin rash no longer appreciated ASSESSMENT AND PLAN: 66 year old female with a significant past medical history of osteoporosis, CHF , venous stasis, seizures, depression presenting with shaking chills admitted for sepsis 2/2 to CAP 1. Community Acquired PNA- cough becoming productive now. noted coughing when eating. check MBS as aspiration risk. also requiring supplemental oxygen. will give pred 40mg once. 98% on 3L NC. RA. on levaquin day 4. chest PT. CXR negative for pulmonary effusions. check pre and post. poulmonary on board. agrees with plan. 2. Maculopapular rash - Appears as allergic reaction, unclear if abx or other meds. now resolved 3. Hypothyroidism- elevated TSH. synthroid dosing was decreased. should have level checked in 6 weeks. 4. Acute Metabolic encephalopathy- liekly due to infection vs increased TSH. now resolved. MRI done 5. R lateral thalamic infarct- negative on MRI. statin and asa were d/c. neuro on board. 4. CHF- no crackles on exam. received lasix yesterday. CXR negative for fluid. cont home dosing. 5. Seizure/Generalized Epilepsy- no seizure like activity noted here. kidney function improved. will place back on home dose of antieleptics 6. NPH seen on MRI- evaluated by neuro. no intervention at this time. 7. DVT ppx- hep sq 8. DNR/DNI.
--- NOTE | 2017-04-22 14:37 | PN ---
Progress Note (short form) - Note Progress Note: PULMONARY VSS/AFEBRILE CHART REVIEWED ANICTERIC SCATTERED EXP B/L RHONCHI S1S2 OBESE MILD EDEMA LOWER EXT LABS/MEDS/IMAGES/NOTES REVIEWED A/P Pneumonia h/o CHF Hypothyroidism Depression Seizure Disorder - continue antibiotics - can d/c medrol - inhaled bronchodilators - PO as tolerated - DVT prophyl Rhonda EARLY MD
--- NOTE | 2017-04-22 14:42 | PN ---
Progress Note (short form) - Note Progress Note: 66 year old female, gambian decent . History was taken with help of her sister. She has history of CHF, Osteoporosis, Htn, Epilepsy since biirth. She has not had any seizures in 10 years. 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 She had ct scan done and , it showed there is faint area of ischemic lesion on right thalamic region. There is no dysphagia, dysarthria or diplopia. There is no numbness or hemiparesis. Her mri of brain was unremarkable. Neurological Examination Alert folow command speech is normal CN eomi, pupils is reactive ,no facial asymmetry Motor 5/5 all four extremities Sensation is normal Reflex are diminished in lower extremity CT head showed there is faint ischemic lesion on right thalamic MRI of brain was unremarkable, and mri showed ?NPH A/P 1.- No evidence of stroke, d/w primary team. 2. Abnormal MRI findings suggestive of NPH. NPH is very questionable diagnosis and given she had seizures since childhood and She has history of epilepsy for a long time. Large ventricle could be a baseline. I do not think, she would benefit from any surgical intervention at this time. 2. History of Generalized Epilepsy, seizures controlled on Keppra and Depakote. Advise to continue . No need for any further testing or change in Medication at this time She is going for speeh evaluation today Please call us if any concern. Thank you so much Malachi Lehman
[2017-04-23] MEDS: ALBUTEROL SO4 0.083% IH SOL 2.5 MG/3 ML VIAL.NEB. NEB SCH ×5 (00:05→23:36)
[2017-04-23] MEDS: LEVOTHYROXINE NA 50 MCG TABLET (FP) PO SCH (06:09)
[2017-04-23] MEDS: VALPROATE SODIUM 250 MG/5 ML UNIT DOSE CUP PO SCH ×2 (06:10→22:21)
[2017-04-23] MEDS: LEVOFLOXACIN 500 MG TABLET (FP) PO SCH (06:10)
[2017-04-23 08:00] LABS: MCHC 33.3 g/dl (32.0-36.0); MEAN CELL VOLUME 99.2 fl (80-96); MEAN PLT VOLUME 7.7 fl (7.5-11.1); PLATELET COUNT 94 K/MM3 (134-434); WHITE BLOOD COUNT 6.3 K/mm3 (4.0-10.0)
[2017-04-23 08:19] LABS: ANION GAP 6 (8-16); CALCIUM 8.6 mg/dL (8.5-10.1); CO2 35 mmol/L (21-32); CREATININE 0.7 mg/dL (0.55-1.02); GLUCOSE,RANDOM 108 mg/dL (74-106)
[2017-04-23] MEDS: HEPARIN NA (PORCINE) 5,000 UNITS/ML 1ML VIAL SQ SCH ×2 (10:15→22:21)
[2017-04-23] MEDS: levETIRAcetam 500 MG TABLET (FP) PO SCH ×2 (10:19→22:20)
[2017-04-23] MEDS: FUROSEMIDE 20 MG TABLET (FP) PO SCH (10:20)
[2017-04-23] MEDS: AMINO ACIDS/PROTEIN HYDROLYS 30 ML LIQUID.PKT PO SCH ×2 (10:20→17:26)
[2017-04-23] MEDS: MULTIVITAMINS (DAILY MVI) TABLET (FP) PO SCH (10:21)
--- NOTE | 2017-04-23 12:14 | PN ---
Progress Note (short form) - Note Progress Note: cough has improved. josh CP, SOB< fever, chills, N/V/C/D Current Medications Generic Name Dose Route Start Last Admin Trade Name Freq PRN Reason Stop Dose Admin Acetaminophen 650 mg 04/19/17 19:01 04/20/17 06:40 Tylenol - PO 650 mg Q6H PRN Administration FEVER OR PAIN Albuterol Sulfate 1 amp 04/22/17 06:56 04/23/17 11:08 Ventolin 0.083% Nebulizer Soln - NEB 1 amp QIDR [facility]IS Administration Amino Acids 30 ml 04/21/17 17:30 04/23/17 10:20 Prosource No Carb Liquid Pkt PO 30 ml BID@0800,1730 [facility] Administration Benzocaine/Menthol 1 each 04/21/17 20:30 Cepacol Lozenge - MM PRN PRN SORE THROAT Furosemide 20 mg 04/19/17 10:00 04/23/17 10:20 Lasix - PO 20 mg Q2D@1000 [facility] Administration Heparin Sodium (Porcine) 5,000 unit 04/21/17 22:00 04/23/17 10:15 Heparin - SQ 5,000 unit BID [facility] Administration Levetiracetam 1,500 mg 04/21/17 14:22 04/23/17 10:19 Keppra - PO 1,500 mg BID [facility] Administration Levofloxacin 500 mg 04/22/17 06:00 04/23/17 06:10 Levaquin - PO 500 mg DAILY@0600 [facility] Administration Levothyroxine Sodium 25 mcg 04/20/17 08:52 04/23/17 06:09 Synthroid - PO 25 mcg DAILY@0700 [facility] Administration Multivitamins/Minerals/Vitamin C 1 tab 04/21/17 14:15 04/23/17 10:21 Tab-A-Vit - PO 1 tab DAILY [facility] Administration Valproate Sodium 1,000 mg 04/22/17 07:00 04/23/17 06:10 Depakene - PO 1,000 mg DAILY@0700 [facility] Administration Valproate Sodium 750 mg 04/22/17 22:00 04/22/17 22:22 Depakene - PO 750 mg HS [facility] Administration Last Vital Signs Temp Pulse Resp BP Pulse Ox 98 F 66 20 128/53 92 L 04/23/17 10:00 04/23/17 10:00 04/23/17 10:00 04/23/17 10:00 04/22/17 21:00 General NAD Lungs mild rhonchi, no crakles CV S1 S2 RRR no murmrur/rub/gallop Skin rash no longer appreciated ASSESSMENT AND PLAN: 66 year old female with a significant past medical history of osteoporosis, CHF , venous stasis, seizures, depression presenting with shaking chills admitted for sepsis 2/2 to CAP 1. Community Acquired PNA- clinically improved. qualified for home o2. cont levaquin day 5. will complete 7 day course. hold steroids at this time. poulmonary on board. agrees with plan. 2. Maculopapular rash - Appears as allergic reaction, unclear if abx or other meds. now resolved 3. Dysphagia- MBS done. tolerating dsyphagia chopped diet 4. Hypothyroidism- elevated TSH. synthroid dosing was decreased. should have level checked in 6 weeks. 5. Acute Metabolic encephalopathy- liekly due to infection vs increased TSH. now resolved. MRI done 6. R lateral thalamic infarct- negative on MRI. statin and asa were d/c. neuro on board. 7. CHF- no crackles on exam. received lasix yesterday. CXR negative for fluid. cont home dosing. 8. Seizure/Generalized Epilepsy- no seizure like activity noted here. kidney function improved. will place back on home dose of antieleptics 9. NPH seen on MRI- evaluated by neuro. no intervention at this time. 10. DVT ppx- hep sq 11. DNR/DNI. 12. medicaly optimized for discharge. will need TERRY placement due to deconditioning. Sister aware and agreeable. awaiting bed availability Visit type - Emergency Visit Emergency Visit: Yes ED Registration Date: 04/19/17 Care time: The patient presented to the Emergency Department on the above date and was hospitalized for further evaluation of their emergent condition. - New Patient This patient is new to me today: No - Critical Care Critical Care patient: No - Discharge Referral Referred to [facility] Med P.C.: No
--- NOTE | 2017-04-23 12:50 | PN ---
Progress Note (short form) - Note Progress Note: PULMONARY VSS/AFEBRILE CHART REVIEWED ANICTERIC SCATTERED EXP B/L RHONCHI S1S2 OBESE MILD EDEMA LOWER EXT LABS/MEDS/IMAGES/NOTES REVIEWED MBS NOTED A/P Pneumonia h/o CHF Hypothyroidism Depression Seizure Disorder - continue antibiotics - inhaled bronchodilators - dietary modifications - DVT prophylaxsis Rhonda EARLY MD
[2017-04-23] MEDS ORDERED: PT OWN MED DRAWER 7, Y5N ONE (20:52)
[2017-04-24] MEDS: ALBUTEROL SO4 0.083% IH SOL 2.5 MG/3 ML VIAL.NEB. NEB SCH ×4 (06:09→23:43)
[2017-04-24] MEDS: LEVOTHYROXINE NA 50 MCG TABLET (FP) PO SCH (07:08)
[2017-04-24] MEDS: LEVOFLOXACIN 500 MG TABLET (FP) PO SCH (07:08)
[2017-04-24] MEDS: VALPROATE SODIUM 250 MG/5 ML UNIT DOSE CUP PO SCH ×2 (07:09→22:48)
[2017-04-24] MEDS: AMINO ACIDS/PROTEIN HYDROLYS 30 ML LIQUID.PKT PO SCH ×2 (08:08→17:11)
[2017-04-24] MEDS: HEPARIN NA (PORCINE) 5,000 UNITS/ML 1ML VIAL SQ SCH ×2 (09:12→22:48)
[2017-04-24] MEDS: levETIRAcetam 500 MG TABLET (FP) PO SCH ×2 (09:13→22:48)
[2017-04-24] MEDS: FUROSEMIDE 20 MG TABLET (FP) PO SCH (09:13)
[2017-04-24] MEDS: MULTIVITAMINS (DAILY MVI) TABLET (FP) PO SCH (09:13)
--- NOTE | 2017-04-24 11:33 | PN ---
Progress Note (short form) - Note Progress Note: cough has improved. josh CP, SOB< fever, chills, N/V/C/D Current Medications Generic Name Dose Route Start Last Admin Trade Name Freq PRN Reason Stop Dose Admin Acetaminophen 650 mg 04/19/17 19:01 04/20/17 06:40 Tylenol - PO 650 mg Q6H PRN Administration FEVER OR PAIN Albuterol Sulfate 1 amp 04/22/17 06:56 04/24/17 06:09 Ventolin 0.083% Nebulizer Soln - NEB 1 amp QIDR [facility]IS Administration Amino Acids 30 ml 04/21/17 17:30 04/24/17 08:08 Prosource No Carb Liquid Pkt PO 30 ml BID@0800,1730 [facility] Administration Benzocaine/Menthol 1 each 04/21/17 20:30 Cepacol Lozenge - MM PRN PRN SORE THROAT Furosemide 20 mg 04/19/17 10:00 04/24/17 09:13 Lasix - PO 20 mg Q2D@1000 [facility] Administration Heparin Sodium (Porcine) 5,000 unit 04/21/17 22:00 04/24/17 09:12 Heparin - SQ 5,000 unit BID [facility] Administration Levetiracetam 1,500 mg 04/21/17 14:22 04/24/17 09:13 Keppra - PO 1,500 mg BID [facility] Administration Levofloxacin 500 mg 04/22/17 06:00 04/24/17 07:08 Levaquin - PO 500 mg DAILY@0600 [facility] Administration Levothyroxine Sodium 25 mcg 04/20/17 08:52 04/24/17 07:08 Synthroid - PO 25 mcg DAILY@0700 [facility] Administration Multivitamins/Minerals/Vitamin C 1 tab 04/21/17 14:15 04/24/17 09:13 Tab-A-Vit - PO 1 tab DAILY [facility] Administration Valproate Sodium 1,000 mg 04/22/17 07:00 04/24/17 07:09 Depakene - PO 1,000 mg DAILY@0700 [facility] Administration Valproate Sodium 750 mg 04/22/17 22:00 04/23/17 22:21 Depakene - PO 750 mg HS [facility] Administration Last Vital Signs Temp Pulse Resp BP Pulse Ox 97.9 F 71 18 132/53 95 04/24/17 08:23 04/24/17 08:23 04/24/17 08:23 04/24/17 08:23 04/24/17 09:00 General NAD Lungs mild rhonchi, no crakles CV S1 S2 RRR no murmrur/rub/gallop Skin rash no longer appreciated ASSESSMENT AND PLAN: 66 year old female with a significant past medical history of osteoporosis, CHF , venous stasis, seizures, depression presenting with shaking chills admitted for sepsis 2/2 to CAP 1. Community Acquired PNA- clinically improved. qualified for home o2. cont levaquin day 5. will complete 7 day course. hold steroids at this time. poulmonary on board. agrees with plan. 2. Maculopapular rash - Appears as allergic reaction, unclear if abx or other meds. now resolved 3. Dysphagia- MBS done. tolerating dsyphagia chopped diet 4. Hypothyroidism- elevated TSH. synthroid dosing was decreased. should have level checked in 6 weeks. 5. Acute Metabolic encephalopathy- liekly due to infection vs increased TSH. now resolved. MRI done 6. R lateral thalamic infarct- negative on MRI. statin and asa were d/c. neuro on board. 7. CHF- no crackles on exam. received lasix yesterday. CXR negative for fluid. cont home dosing. 8. Seizure/Generalized Epilepsy- no seizure like activity noted here. kidney function improved. will place back on home dose of antieleptics 9. NPH seen on MRI- evaluated by neuro. no intervention at this time. 10. DVT ppx- hep sq 11. DNR/DNI. 12. medicaly optimized for discharge. will need TERRY placement due to deconditioning. Sister aware and agreeable. awaiting bed availability
--- NOTE | 2017-04-24 12:13 | PN ---
Progress Note (short form) - Note Progress Note: cough has improved. denies CP, SOB, fever, chills, N/V/C/D Current Medications Generic Name Dose Route Start Last Admin Trade Name Freq PRN Reason Stop Dose Admin Acetaminophen 650 mg 04/19/17 19:01 04/20/17 06:40 Tylenol - PO 650 mg Q6H PRN Administration FEVER OR PAIN Albuterol Sulfate 1 amp 04/22/17 06:56 04/24/17 06:09 Ventolin 0.083% Nebulizer Soln - NEB 1 amp QIDR [facility] Administration Amino Acids 30 ml 04/21/17 17:30 04/24/17 08:08 Prosource No Carb Liquid Pkt PO 30 ml BID@0800,1730 [facility] Administration Benzocaine/Menthol 1 each 04/21/17 20:30 Cepacol Lozenge - MM PRN PRN SORE THROAT Furosemide 20 mg 04/19/17 10:00 04/24/17 09:13 Lasix - PO 20 mg Q2D@1000 [facility] Administration Heparin Sodium (Porcine) 5,000 unit 04/21/17 22:00 04/24/17 09:12 Heparin - SQ 5,000 unit BID [facility] Administration Levetiracetam 1,500 mg 04/21/17 14:22 04/24/17 09:13 Keppra - PO 1,500 mg BID [facility] Administration Levofloxacin 500 mg 04/22/17 06:00 04/24/17 07:08 Levaquin - PO 500 mg DAILY@0600 [facility] Administration Levothyroxine Sodium 25 mcg 04/20/17 08:52 04/24/17 07:08 Synthroid - PO 25 mcg DAILY@0700 [facility] Administration Multivitamins/Minerals/Vitamin C 1 tab 04/21/17 14:15 04/24/17 09:13 Tab-A-Vit - PO 1 tab DAILY [facility] Administration Valproate Sodium 1,000 mg 04/22/17 07:00 04/24/17 07:09 Depakene - PO 1,000 mg DAILY@0700 [facility] Administration Valproate Sodium 750 mg 04/22/17 22:00 04/23/17 22:21 Depakene - PO 750 mg HS [facility] Administration Last Vital Signs Temp Pulse Resp BP Pulse Ox 97.9 F 71 18 132/53 95 04/24/17 08:23 04/24/17 08:23 04/24/17 08:23 04/24/17 08:23 04/24/17 09:00 General NAD Lungs mild wheezing, no crakles CV S1 S2 RRR no murmrur/rub/gallop Skin rash no longer appreciated ASSESSMENT AND PLAN: 66 year old female with a significant past medical history of osteoporosis, CHF , venous stasis, seizures, depression presenting with shaking chills admitted for sepsis 2/2 to CAP 1. Community Acquired PNA- clinically improved. qualified for home o2. cont levaquin day 6. will complete 7 day course. nebs RTC as pt is unable to request nebs. hold steroids at this time. poulmonary on board. agrees with plan. 2. Maculopapular rash - Appears as allergic reaction, unclear if abx or other meds. now resolved 3. Dysphagia- MBS done. tolerating dsyphagia chopped diet 4. Hypothyroidism- elevated TSH. synthroid dosing was decreased. should have level checked in 6 weeks. 5. Acute Metabolic encephalopathy- liekly due to infection vs increased TSH. now resolved. MRI done 6. R lateral thalamic infarct- negative on MRI. statin and asa were d/c. neuro on board. 7. CHF- no crackles on exam. received lasix yesterday. CXR negative for fluid. cont home dosing. 8. Seizure/Generalized Epilepsy- no seizure like activity noted here. kidney function improved. will place back on home dose of antieleptics 9. NPH seen on MRI- evaluated by neuro. no intervention at this time. 10. DVT ppx- hep sq 11. DNR/DNI. 12. medicaly optimized for discharge. will need TERRY placement due to deconditioning. discharge is appealed Visit type - Emergency Visit Emergency Visit: Yes ED Registration Date: 04/19/17 Care time: The patient presented to the Emergency Department on the above date and was hospitalized for further evaluation of their emergent condition. - New Patient This patient is new to me today: No - Critical Care Critical Care patient: No - Discharge Referral Referred to [facility] Med P.C.: No
[2017-04-24] MEDS ORDERED: PT OWN MED DRAWER 7, Y5N ONE ×2 (22:09→22:13)
[2017-04-25] MEDS ORDERED: PT OWN MED DRAWER 7, Y5N ONE (05:41)
[2017-04-25] MEDS: VALPROATE SODIUM 250 MG/5 ML UNIT DOSE CUP PO SCH (06:18)
[2017-04-25] MEDS: LEVOFLOXACIN 500 MG TABLET (FP) PO SCH (06:20)
[2017-04-25] MEDS: LEVOTHYROXINE NA 50 MCG TABLET (FP) PO SCH (06:20)
[2017-04-25] MEDS: ALBUTEROL SO4 0.083% IH SOL 2.5 MG/3 ML VIAL.NEB. NEB SCH ×2 (06:39→11:00)
[2017-04-25] MEDS: FUROSEMIDE 20 MG TABLET (FP) PO SCH (11:14)
[2017-04-25] MEDS: MULTIVITAMINS (DAILY MVI) TABLET (FP) PO SCH (11:14)
[2017-04-25] MEDS: AMINO ACIDS/PROTEIN HYDROLYS 30 ML LIQUID.PKT PO SCH (11:15)
[2017-04-25] MEDS: HEPARIN NA (PORCINE) 5,000 UNITS/ML 1ML VIAL SQ SCH (11:15)
[2017-04-25] MEDS: levETIRAcetam 500 MG TABLET (FP) PO SCH (11:15)
[2017-04-25 11:29] VITALS: BP 127/68; PULSE 86; TEMP 98
--- NOTE | 2017-04-25 11:38 | PN ---
Progress Note (short form) - Note Progress Note: Resting in NAD on 2 L NC O2, saturation 99%. No acute events overnight. Intake & Output 04/22/17 04/23/17 04/24/17 04/25/17 23:59 23:59 23:59 23:59 Intake Total 50 250 520 150 Balance 50 250 520 150 Last Vital Signs Temp Pulse Resp BP Pulse Ox 98 F 86 18 127/68 99 04/25/17 11:28 04/25/17 11:28 04/25/17 11:28 04/25/17 11:28 04/25/17 10:57 Active Medications Acetaminophen (Tylenol -) 650 mg PO Q6H PRN PRN Reason: FEVER OR PAIN Last Admin: 04/20/17 06:40 Dose: 650 mg Albuterol Sulfate (Ventolin 0.083% Nebulizer Soln -) 1 amp NEB QIDR [facility] Last Admin: 04/25/17 11:00 Dose: Not Given Amino Acids (Prosource No Carb Liquid Pkt) 30 ml PO BID@0800,1730 [facility] Last Admin: 04/25/17 11:15 Dose: 30 ml Benzocaine/Menthol (Cepacol Lozenge -) 1 each MM PRN PRN PRN Reason: SORE THROAT Furosemide (Lasix -) 20 mg PO Q2D@1000 [facility] Last Admin: 04/25/17 11:14 Dose: 20 mg Heparin Sodium (Porcine) (Heparin -) 5,000 unit SQ BID [facility] Last Admin: 04/25/17 11:15 Dose: 5,000 unit Levetiracetam (Keppra -) 1,500 mg PO BID [facility] Last Admin: 04/25/17 11:15 Dose: 1,500 mg Levofloxacin (Levaquin -) 500 mg PO DAILY@0600 [facility] Last Admin: 04/25/17 06:20 Dose: 500 mg Levothyroxine Sodium (Synthroid -) 25 mcg PO DAILY@0700 [facility] Last Admin: 04/25/17 06:20 Dose: 25 mcg Multivitamins/Minerals/Vitamin C (Tab-A-Vit -) 1 tab PO DAILY [facility] Last Admin: 04/25/17 11:14 Dose: 1 tab Valproate Sodium (Depakene -) 1,000 mg PO DAILY@0700 [facility] Last Admin: 04/25/17 06:18 Dose: 1,000 mg Valproate Sodium (Depakene -) 750 mg PO HS [facility] Last Admin: 04/24/17 22:48 Dose: 750 mg Gen: awake, alert, breathing nonlabored Heart: RRR Lung: decreased breath sounds at the bases Abd: soft, nontender Ext: no edema Problem List - Problems (1) Pneumonia Code(s): J18.9 - PNEUMONIA, UNSPECIFIED ORGANISM Qualifiers: Pneumonia type: due to unspecified organism Laterality: right Lung location: lower lobe of lung Qualified Code(s): J18.1 - Lobar pneumonia, unspecified organism (2) CHF (congestive heart failure) Code(s): I50.9 - HEART FAILURE, UNSPECIFIED (3) Seizure disorder Code(s): G40.909 - EPILEPSY, UNSP, NOT INTRACTABLE, WITHOUT STATUS EPILEPTICUS (4) Depression Code(s): F32.9 - MAJOR DEPRESSIVE DISORDER, SINGLE EPISODE, UNSPECIFIED (5) Hypothyroidism Code(s): E03.9 - HYPOTHYROIDISM, UNSPECIFIED A/P Pneumonia h/o CHF Hypothyroidism Depression Seizure Disorder - Can consider D/C ABX after today (received 7 days; also lowering of seizure threshold) - Monitor off systemic steroids - inhaled bronchodilators as needed - PO as tolerated - DVT prophylaxis - D/C planning to SNF Dr Savage
--- NOTE | 2017-04-25 14:26 | PN ---
Progress Note, [employer] - Note Progress Note: Selected Entries 04/24/17 04/24/17 04/24/17 00:00 06:09 08:23 Breakfast Lunch Supper Temperature 97.6 F 98.6 F 97.9 F 04/24/17 04/24/17 04/24/17 09:40 14:14 17:35 Breakfast 50% Lunch 25% Supper Temperature 98.0 F 98.4 F 04/24/17 04/24/17 04/25/17 19:44 22:34 06:27 Breakfast Lunch Supper 25% Temperature 97.9 F 99.3 F 04/25/17 04/25/17 09:27 11:28 Breakfast 25% Lunch Supper Temperature 98 F Laboratory Tests 04/23/17 06:00 WBC 6.3 On ground diet/thin liquid based on MBS results. Pt tolerating diet better, per nursing. [facility]
--- NOTE | 2017-04-25 17:32 | DS ---
Physical Exam: SUBJECTIVE: Patient seen and examined OBJECTIVE: Vital Signs Period Temp Pulse Resp BP Sys/Villa Pulse Ox Last 24 Hr 97.9 F-99.3 F 77-104 18-20 120-127/57-68 95-99 PHYSICAL EXAM GENERAL: The patient is awake, alert, and fully oriented, in no acute distress. HEAD: Normal with no signs of trauma. EYES: PERRL, extraocular movements intact, sclera anicteric, conjunctiva clear. ENT: Ears normal, nares patent, oropharynx clear without exudates, moist mucous membranes. NECK: Trachea midline, full range of motion, supple. LUNGS: Breath sounds equal, clear to auscultation bilaterally, no wheezes, no crackles, no accessory muscle use. HEART: Regular rate and rhythm, S1, S2 without murmur, rub or gallop. ABDOMEN: Soft, nontender, nondistended, normoactive bowel sounds, no guarding, no rebound, no hepatosplenomegaly, no masses. EXTREMITIES: 2+ pulses, warm, well-perfused, no edema. NEUROLOGICAL: Cranial nerves II through XII grossly intact. Normal speech, gait not observed. PSYCH: Normal mood, normal affect. SKIN: Warm, dry, normal turgor, no rashes or lesions noted. LABS HOSPITAL COURSE: Date of Admission:04/19/17 Date of Discharge: 04/25/17 admitting diagnosis: sepsis due to CAP, allergic reaction to azithromycin/ ceftriaxone Pre hospital course Maura Koenig is a 66 year old female with pmhx of osteoporosis, CHF, venous stasis, seizures, and depression, who was sent from [facility] for "shaking all day". Attempts were made to obtain further history through an [place] free lance model and a program specialist. Unable to obtain further history due to language barrier. Subsequent hospital course Medicine observation. started on ceftriaxone and Azithromycin which she developed diffuse macular-papular rash. given steroids/pepcid/benadryl. improvement and resolution of rash. questionable infarct on CT head which was negative on MRI. clinically improved. noticed coughing on eating and MBS done and placed on dysphagia chopped diet. only able to walk 20 ft with PT and qualified for [facility]. was medically optimized for d/c to [facility] however was not accepted to choice facility and sister (HCP) appealed discharge. on tuesday facility accepted discharge and sister agreeable to her leaving. Minutes to complete discharge: 40 Discharge Summary Reason For Visit: PNEUMONIA Condition: Improved - Instructions Diet, Activity, Other Instructions: MEDICAL RECOMMENDATIONS: - You were admitted because you had Pneumonia, you were treated with antibiotics - We want you to continue your antibiotics for a total of 1 week. -use 3 liters of oxygen to maintain your oxygen levels above 90%. You should be re-assess after you complete antibiotics to see if you need to continue oxygen therapy. - Also, please continuing your dysphagia chopped diet and advance your diet as tolerated - You had an allergic reaction to either Azithromycin or Ceftriaxone, please avoid taking these drugs in the future - You were found to have a chronic stroke on your brain imaging. - If you experience severe chest pain, shortness of breath, seizures, or stroke like symptoms, please return to the Emergency Room MEDICATION CHANGES: - Continue 3 more days of Levaquin 500mg tablets once daily FOLLOWUPS: - Primary Care Doctor (Dr. Landry) - followup in 1 week Referrals: Jody Landry MD [Primary Care Provider] - 1 Week Disposition: LONGTERM FACILITY - Home Medications Comprehensive Discharge Medication List: Ambulatory Orders Calcium Citrate [Calcitrate] 200 mg PO DAILY 04/19/17 Divalproex *ER* [Depakote *ER* -] 1,000 mg PO AM 04/19/17 Divalproex *ER* [Depakote *ER* -] 750 mg PO HS 04/19/17 Ergocalciferol (Vitamin D2) [Vitamin D2] 50,000 unit PO WEEKLY 04/19/17 Furosemide [Lasix] 20 mg PO Q48H 04/19/17 Levetiracetam [Keppra -] 1,500 mg PO BID 04/19/17 Levothyroxine Sodium [Levo-T] 50 mcg PO DAILY 04/19/17 This patient is new to me today: No Emergency Visit: Yes ED Registration Date: 04/19/17 Care time: The patient presented to the Emergency Department on the above date and was hospitalized for further evaluation of their emergent condition. Critical Care patient: No - Discharge Referral Referred to [facility] No
== END 2017-04-25 16:08 | DRG 720 ==
LOC: JER 21:45 → JERBED 04-19 03:16 → OBSVTOIN 04-19 04:02 → J7W 04-19 05:04
PROVIDERS: ADMIT Internal Medicine; ATTEND Internal Medicine
DX: A41.9 Sepsis, unspecified organism (principal); J18.9 Pneumonia, unspecified organism; M81.0 Age-related osteoporosis without current pathological fracture; E03.9 Hypothyroidism, unspecified; F32.9 Major depressive disorder, single episode, unspecified; G40.909 Epilepsy, unspecified, not intractable, without status epilepticus; R21 Rash and other nonspecific skin eruption; G93.41 Metabolic encephalopathy; R13.10 Dysphagia, unspecified; I50.30 Unspecified diastolic (congestive) heart failure; D69.6 Thrombocytopenia, unspecified
CPT/HCPCS: 36415; 70450-TC; 70551-TC; 71010-TC; 74230-TC; 80048; 80053; 80061; 80164; 81003; 82550; 82607; 82746; 82803; 83036; 83605; 83721; 83735; 84100; 84439; 84443; 84481; 84484; 85025; 85027; 85610; 85730; 86022; 86850; 86900; 86901; 87040; 87086; 87633; 87804; 87899; 92611-GN; 93005; 93010; 93306-TC; 93880-TC; 93970-TC; 94640; 97116-GP; 97161-GP; 99281-25; G0378; J1644

== ENCOUNTER 2017-07-18 09:34 | Emergency (ER) | payer OTHER ==
--- NOTE | 2017-07-18 10:00 | PDOC ---
History of Present Illness - General Chief Complaint: Injury Stated Complaint: HEAD INJURY Time Seen by Provider: 07/18/17 09:49 History Source: Patient, [facility] Records - History of Present Illness Occurred: reports: this morning Pain Location: reports: head Method of Injury: Yes: direct blow Past History - Past Medical History Allergies/Adverse Reactions: Allergies Allergy/AdvReac Type Severity Reaction Status Date / Time azithromycin [From Zithromax] AdvReac Verified 07/18/17 09:48 ceftriaxone AdvReac Verified 07/18/17 09:48 Home Medications: Ambulatory Orders Calcium Citrate [Calcitrate] 200 mg PO DAILY 04/19/17 Divalproex *ER* [Depakote *ER* -] 1,000 mg PO HS 04/19/17 Divalproex *ER* [Depakote *ER* -] 250 mg PO HS 04/19/17 Ergocalciferol (Vitamin D2) [Vitamin D2] 50,000 unit PO WEEKLY 04/19/17 Furosemide [Lasix] 20 mg PO Q48H 04/19/17 Levothyroxine Sodium [Levo-T] 50 mcg PO DAILY 04/19/17 levETIRAcetam [Keppra -] 1,500 mg PO BID 04/19/17 COPD: No DVT: No Seizures: Yes Thyroid Disease: Yes (HYPO) - Immunization History Immunization Up to Date: Yes - Suicide/Smoking/Psychosocial Hx Smoking History: Unknown if ever smoked Have you smoked in the past 12 months: No Hx Alcohol Use: No Drug/Substance Use Hx: No Substance Use Type: None Hx Substance Use Treatment: No Review of Systems - Review of Systems Respiratory: No: Shortness of Breath Cardiac (ROS): No: Chest Pain ABD/GI: No: Nausea, Vomiting Neurological: No: Headache, Dizziness *Physical Exam - Physical Exam General Appearance: Yes: Appropriately Dressed. No: Apparent Distress HEENT: positive: Normal Voice, Other (no obvious scalp contusion/wound) Respiratory/Chest: positive: Lungs Clear, Normal Breath Sounds. 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 negative: Facial Droop, Confused, Disoriented ED Treatment Course - RADIOLOGY Radiology Studies Ordered: Category Date Time Status HEAD CT WITHOUT CONTRAST [CT] Stat CT Scan 07/18/17 09:55 Ordered Medical Decision Making - Medical Decision Making 07/18/17 09:56 66-year-old female, history of depression, osteoporosis, CHF, venous stasis and seizures, sent from [facility] assisted living [facility] for head injury. Patient states while in the shower this a.m. the metal curtain asif fell onto back of her head. Have pain initially that has since resolved. Denies LOC, dizziness, nausea, vomiting or visual changes. Not on any blood thinners. Denies any additional injuries at this time See exam Head injury No LYN/LOC/dizziness/n/v Not on blood thinners [facility] and stable w/ no focal deficits -Low risk mechanism but will scan head as d/w ED attg -anticipate dc back to facility 07/18/17 11:14 CT head negative for acute pathology. Patient remained stable and well appearing with no change from initial examination. Stable for discharge back to assisted living facility 07/18/17 11:16 *DC/Admit/Observation/Transfer Diagnosis at time of Disposition: Head injury Qualifiers: Encounter type: initial encounter Qualified Code(s): S09.90XA - Unspecified injury of head, initial encounter - Discharge Dispostion Disposition: HOME Condition at time of disposition: Good - Referrals Referrals: Jody Landry MD [Primary Care Provider] - - Patient Instructions Printed Discharge Instructions: DI for Closed Head Injury Additional Instructions: Your CAT scan of your head was negative for any acute bleed Return to ER for worsening of symptoms - Post Discharge Activity
[2017-07-18 10:13] VITALS: TEMP 97.3; BMI 26.8
[2017-07-18 12:45] VITALS: BP 152/87; PULSE 71
== END 2017-07-18 12:45 | disposition home or self-care (01) ==
LOC: JER 09:34
DX: S09.8XXA Other specified injuries of head, initial encounter (principal); W20.8XXA Other cause of strike by thrown, projected or falling object, initial encounter; Y93.E1 Activity, personal bathing and showering; Y92.121 Bathroom in nursing home as the place of occurrence of the external cause; Y99.8 Other external cause status; I50.9 Heart failure, unspecified; F32.9 Major depressive disorder, single episode, unspecified; M81.0 Age-related osteoporosis without current pathological fracture; G40.909 Epilepsy, unspecified, not intractable, without status epilepticus; I87.8 Other specified disorders of veins
CPT/HCPCS: 70450-TC; 99282-25

== ENCOUNTER 2017-12-25 07:42 | Emergency (ER) | payer OTHER ==
--- NOTE | 2017-12-25 07:43 | PDOC ---
History of Present Illness - General Stated Complaint: DIFFICULT OF BREATHING Time Seen by Provider: 12/25/17 07:43 - History of Present Illness Initial Comments: 12/25/17 07:51 67 year old woman SUJEY from [facility] who awoke this morning hx of CHF and was feeling anxious and shaking and shortness of breath. En route SBP 186. sublingual nitro given and SBP down to 150. Pt initially O2 93 on RA started 2L NC up to 97. Per [facility] n[facility] facility the patient has a baseline tremor in the hands and is approx the same ability of coherency and conversation at baseline as she is at bedside. Patient admits that she only takes her lasix 5 days a week because she does not like that she urinates more on the medication. She has not taken her furosemide for 2 days. 12/25/17 07:54 12/25/17 09:22 Patient takes lasix 20mg. 12/25/17 12:53 12/25/17 12:59 Past History - Past Medical History Allergies/Adverse Reactions: Allergies Allergy/AdvReac Type Severity Reaction Status Date / Time azithromycin [From Zithromax] AdvReac Verified 07/18/17 09:48 ceftriaxone AdvReac Verified 07/18/17 09:48 Home Medications: Ambulatory Orders Calcium Citrate [Calcitrate] 950 mg PO DAILY 04/19/17 Divalproex *ER* [Depakote *ER* -] 1,000 mg PO HS 04/19/17 Divalproex *ER* [Depakote *ER* -] 250 mg PO HS 04/19/17 Ergocalciferol (Vitamin D2) [Vitamin D2] 50,000 unit PO WEEKLY 04/19/17 Furosemide [Lasix] 20 mg PO Q48H 04/19/17 Levothyroxine Sodium [Levo-T] 100 mcg PO DAILY 04/19/17 levETIRAcetam [Keppra -] 1,500 mg PO BID 04/19/17 Acetaminophen [Pain Relief] 650 mg PO PRN 12/25/17 Potassium Chloride 10 meq PO DAILY 12/25/17 COPD: No DVT: No Seizures: Yes Thyroid Disease: Yes (HYPO) - Immunization History Immunization Up to Date: Yes - Suicide/Smoking/Psychosocial Hx Smoking History: Unknown if ever smoked Have you smoked in the past 12 months: No Hx Alcohol Use: No Drug/Substance Use Hx: No Substance Use Type: None Hx Substance Use Treatment: No *Physical Exam - Physical Exam Comments: 12/25/17 08:08 dry mucous membranes CTAB RRR no abd tenderness 2+ pitting edema ED Treatment Course - LABORATORY CBC & Chemistry Diagram: 12/25/17 08:58 12/25/17 08:58 Medical Decision Making - Medical Decision Making 12/25/17 08:07 Patient assessed. Stable vitals. 12/25/17 10:08 BNP: 164 CXR: mildly increased congestion 12/25/17 11:00 Lasix 20mg given 12/25/17 11:33 Patient reassessed, improved eating at bedside. Would like to go home. *DC/Admit/Observation/Transfer Diagnosis at time of Disposition: CHF exacerbation - Discharge Dispostion Disposition: GROUP HOME FACILITY Condition at time of disposition: Stable Decision to Admit order: No - Referrals Referrals: Marvin Lawrence MD [Primary Care Provider] - Lon Godwin MD [Staff Physician] - - Patient Instructions Printed Discharge Instructions: DI for Heart Failure Additional Instructions: You were seen in the ED for complaints of shortness of breath In the ED you were evaluated with labwork and imaging. Your results were significant for mild CHF exacerbation. There does not appear to be an acute need for immediate hospitalization. You are advised to follow up with your primary care physician within 1 week. Please be advised to take all your prescribed medications regularly every day. You were given a referral for cardiology and advised to follow up within 1 week. Return to the ED immediately if you experience worsening shortness of breath, chest pain, increased leg swelling or fever. - Post Discharge Activity
[2017-12-25 08:22] VITALS: TEMP 97.9; BMI 35.6
--- NOTE | 2017-12-25 08:26 | PDOC ---
Attending Attestation - Resident Resident Name: Erika Trujillo - ED Attending Attestation I have performed the following: I have examined & evaluated the patient, The case was reviewed & discussed with the resident, I agree w/resident's findings & plan, Exceptions are as noted - HPI HPI: 12/25/17 09:28 The patient is a 67-year-old female present to the emergency department from [facility] with shortness of breath and shaking. EMS reports, en route the patients systolic blood pressure was 166, following the patient was given nitro sublingual. The patient had an O2 of 93 on room air, was placed on a 2L nasal cannula, with O2 improvement to 97. Additionally, the patient has B/l lower extremity edema. The patient has a history of necrosis of the femur. The patient states she doesn't take her water pills on the weekends. Denies chest pain. Allergies: azithromycin and ceftriaxone PMHx: Osteoporosis, CHF, Venous Stasis, Seizures, Depression. PSHx: None recorded. SHx: Unknown smoking history, No ETOH or drugs PCP: Marvin Aguilar MD - Physicial Exam PE: 12/25/17 09:53 GENERAL: Awake, alert, and fully oriented, in no acute distress. HEAD: No signs of trauma EYES: PERRLA, EOMI, sclera anicteric, conjunctiva clear ENT: Auricles normal inspection, hearing grossly normal, nares patent, oropharynx clear without exudates. Moist mucosa NECK: Normal ROM, supple, no lymphadenopathy, JVD, or masses LUNGS: Breath sounds equal, clear to auscultation bilaterally. No wheezes, and no crackles HEART: Regular rate and rhythm, normal S1 and S2, no murmurs, rubs or gallops ABDOMEN: Soft, nontender, normoactive bowel sounds. No guarding, no rebound. No masses EXTREMITIES: (+) 2+ pitting edema B/l to the knee. Normal range of motion, No clubbing or cyanosis. No cords, erythema, or tenderness NEUROLOGICAL: Cranial nerves II through XII grossly intact. Normal speech, speaking in completely full sentence. SKIN: Warm, Dry, normal turgor, no rashes or lesions noted. - Medical Decision Making 12/25/17 09:28 Documentation prepared by Kiara Flores, acting as medical technologist clinical for Carol Arceo, MD.
[2017-12-25 09:17] LABS: BASO % 0.2 % (0-2.0); HEMATOCRIT 38.8 % (32.4-45.2); HEMOGLOBIN 13.6 GM/dL (10.7-15.3); LYMPH % 36.3 % (8-40); MCH 33.7 pg (25.7-33.7); MEAN CELL VOLUME 96.4 fl (80-96); MEAN PLT VOLUME 6.9 fl (7.5-11.1); MONO % 13.6 % (3.8-10.2); NEUT % 49.9 % (42.8-82.8); PLATELET COUNT 116 K/MM3 (134-434); RBC 4.02 M/mm3 (3.60-5.2); WHITE BLOOD COUNT 7.4 K/mm3 (4.0-10.0)
[2017-12-25 09:28] LABS: URINE APPEARANCE CLEAR; URINE BILIRUBIN NEGATIVE (<2.0 mg/dL); URINE COLOR LTYELLOW; URINE GLUCOSE (UA) NEGATIVE (NEGATIVE); URINE KETONE NEGATIVE (NEGATIVE); URINE LEUK ESTERASE NEGATIVE (NEGATIVE); URINE NITRITE NEGATIVE (NEGATIVE); URINE PROTEIN NEGATIVE (NEGATIVE); URINE UROBILINOGEN NEGATIVE mg/dL (0.2-1.0)
[2017-12-25 09:47] LABS: ALBUMIN 3.4 g/dl (3.4-5.0); ANION GAP 8 (8-16); BILIRUBIN,TOTAL 0.4 mg/dL (0.2-1.0); BLOOD UREA NITROGEN 27 mg/dL (7-18); CHLORIDE 108 mmol/L (98-107); CO2 28 mmol/L (21-32); CREATININE 0.8 mg/dL (0.55-1.02); GLUCOSE,RANDOM 88 mg/dL (74-106); POTASSIUM 4.6 mmol/L (3.5-5.1); SGOT/AST 16 U/L (15-37); SGPT/ALT 15 U/L (12-78); SODIUM 144 mmol/L (136-145); TOT PROT 6.6 g/dl (6.4-8.2)
[2017-12-25 09:50] LABS: ALK PHOS 77 U/L (45-117); N-TERMINAL BNP 164.85 pg/ml (5-125)
[2017-12-25] MEDS ORDERED: FUROSEMIDE 40 MG/4 ML INJECTABLE VIAL IVPUSH ONE (10:12)
[2017-12-25] MEDS ORDERED: FUROSEMIDE 40 MG/4 ML INJECTABLE VIAL ONE (10:24)
[2017-12-25 12:17] VITALS: BP 135/65; PULSE 86
--- NOTE | 2017-12-25 19:16 | EKG ---
Test Reason : Blood Pressure : / mmHG Vent. Rate : 069 BPM Atrial Rate : 069 BPM P-R Int : 140 ms QRS Dur : 082 ms QT Int : 392 ms P-R-T Axes : 000 144 125 degrees QTc Int : 420 ms SUSPECT ARM LEAD REVERSAL, INTERPRETATION ASSUMES NO REVERSAL NORMAL SINUS RHYTHM LATERAL INFARCT , AGE UNDETERMINED ABNORMAL ECG Confirmed by MD CHICHO, TATA ([id number]) on 12/25/2017 7:16:50 PM Referred By: Confirmed By:TATA VALENTINO MD
== END 2017-12-25 13:00 ==
LOC: JER 07:42
PROC: 3E033GC Introduction of Other Therapeutic Substance into Peripheral Vein, Percutaneous Approach (ICD-10-PCS; principal; 2017-12-25)
DX: I50.9 Heart failure, unspecified (principal); G40.909 Epilepsy, unspecified, not intractable, without status epilepticus; E03.9 Hypothyroidism, unspecified
CPT/HCPCS: 36415; 71045-TC-FY; 80053; 81003; 82550; 83880; 84484; 85025; 87086; 93005; 93010; 96374; 99283-25

== ENCOUNTER 2018-11-06 16:22 | Inpatient (IN) | payer MEDICARE, OTHER ==
[2018-11-06 16:55] VITALS: BMI 34.2
--- NOTE | 2018-11-06 17:20 | PDOC ---
History of Present Illness - General Chief Complaint: Wound Stated Complaint: FOOT PAIN Time Seen by Provider: 11/06/18 16:55 - History of Present Illness Initial Comments: Maura Koenig is a 68yo Brazilian-speaking woman with a PMH of CHF, chronic LE edema, left hip asceptic necrosis s/p replacement, severe seizure disorder ( last seizure over 10 years ago) who presents with worsening swelling, pain, and erythema to the right leg. Her sister is present at bedside to translate and provide additinoal information. The sister reports that Ms Koenig always has severe swelling in both legs; currently her left leg is at baseline. She noticed increased swelling when she went to visit her sister on Tuesday, but there was minimal erythema or warmth at that time. The pt called her sister several times over the past 1-2 days reporting pain and itching in the right leg, so she went back to visit today. The sister states that she became very concerned because the pt's right leg is "twice the size of the left." She also noticed redness and that the right leg feels warm to touch, which she has never seen before. Neither Ms Banks or her sister know of any fever or chills recently. Ms Koenig reports that she is able to walk around with a walker, though she has had significant pain in her leg over the past day. She admits that she is supposed to be wearing compression stockings but they were "unbearably tight" and she never wore them. She does take her diuretic. She denies any prolonged immobilization, recent surgery/procedure, history of cancer, use of hormone therapy, or history of blood clots. She denies any injury to her right leg prior to the start of pain and swelling. She does not have a PMD currently other than the doctor at her assisted living facility, who she sees rarely. Past History - Past Medical History Allergies/Adverse Reactions: Allergies Allergy/AdvReac Type Severity Reaction Status Date / Time azithromycin [From Zithromax] AdvReac Verified 12/28/17 19:20 ceftriaxone AdvReac Verified 12/28/17 19:20 Home Medications: Ambulatory Orders Acetaminophen 650 mg PO DAILY 11/06/18 Calcium Citrate [Calcitrate] 200 mg PO DAILY 11/06/18 Chlorhexidine Gluconate [Peridex -] 15 ml MM BID 11/06/18 Divalproex Sodium [Depakote] 250 mg PO HS 11/06/18 Ergocalciferol (Vitamin D2) [Vitamin D2] 50,000 unit PO WEEKLY 11/06/18 Furosemide [Lasix] 20 mg PO DAILY 11/06/18 Ibuprofen [Motrin -] 600 mg PO TID 11/06/18 Levothyroxine Sodium [Levoxyl] 100 mcg PO DAILY 11/06/18 Polyvinyl Alcohol [Liquitears] 15 ml OP BID 11/06/18 Potassium Chloride 10 meq PO DAILY 11/06/18 Silver Sulfadiazine [Ssd] 1 applic TP DAILY 11/06/18 COPD: No DVT: No Seizures: Yes Thyroid Disease: Yes (HYPO) - Immunization History Immunization Up to Date: Yes - Suicide/Smoking/Psychosocial Hx Smoking History: Never smoked Have you smoked in the past 12 months: No Information on smoking cessation initiated: No Hx Alcohol Use: No Drug/Substance Use Hx: No Substance Use Type: None Hx Substance Use Treatment: No Review of Systems - Review of Systems Comments:: General: No fevers, no chills, no weight or appetite change, no malaise HEENT: No changes in vision, no changes in hearing, no congestion, no sore throat CV: No chest pain, no palpitations, + LE edema Pulm: No SOB, no cough, no wheezing GI: No nausea or vomiting, no change in bowel habits, no melena : No frequency, no urgency, no dysuria Musc: No back pain, no joint swelling, no recent injury Skin: See HPI Endo: No excessive thirst, no heat/cold intolerance Heme: No unusual bruising or bleeding, no swollen glands Neuro: No syncope, no numbness/tingling, no focal weakness Vasc: No claudication Psych: No recent change in mood, no SI or HI *Physical Exam - Vital Signs Last Vital Signs Temp Pulse Resp BP Pulse Ox 98.6 F 80 20 158/84 97 11/06/18 16:52 11/06/18 16:52 11/06/18 16:52 11/06/18 16:52 11/06/18 16:52 - Physical Exam Comments: General: Comfortable, no acute distress HEENT: PERRL, EOMI, MMM, voice normal, normal neck ROM, no LAD Cards: RRR, no murmur appreciated Pulm: Comfortable on room air, clear to auscultation bilaterally Abd: Soft, nontender, nondistended Ext: Atraumatic. 3+ LLE edema, 4+ RLE edema w/ erythema, warm to touch. ROM intact Vasc: Extremities WWP Skin: R leg from ankle to knee erythematous w/ small intact blistering overlying. No open wounds Neuro: A&Ox3, CN grossly intact, normal speech, motor/sensory grossly intact and symmetric Psych: Mood appropriate to situation ED Treatment Course - LABORATORY CBC & Chemistry Diagram: 11/06/18 17:37 11/06/18 17:37 Medical Decision Making - Medical Decision Making 11/06/18 17:13 Maura Koenig is a 68yo Brazilian-speaking woman with a PMH of CHF, chronic LE edema, left hip asceptic necrosis s/p replacement, severe seizure disorder ( last seizure over 10 years ago) who presents with worsening swelling, pain, and erythema to the right leg. Per her sister, it has visibly worsened since . - Presentation c/w cellulitis. Less likely DVT or deeper tissue infection as she has no open wound, no recent immobilization or travel, no personal CA history, no hormone use. No s/s of ascending or systemic infection - CBC, CMP - Xray RLE, duplex US - Acetaminophen for pain - Clindamycin IV; pt has documented allergy to ceftriaxone 11/06/18 17:55 - 20g IV placed in Rt AC by me; labs sent 11/06/18 19:21 - Labs unremarkable - Xray of foot w/ significant tissue swelling but no other acute injury or sign of deeper infection - Duplex US of RLE showing thrombus of great saphenous vein for entire length. No DVT - Swelling, erythema, pain may be due to superficial thrombosis of the GSV but also c/w overlying cellulitis. Plan to discharge home with antibiotics and PMD follow up. 11/06/18 20:01 - Spoke to Pt's sister. Feels that Ms Koenig will not get follow up at her assisted living facility; she does not have her own outside PMD. Would strongly prefer admission - Will send microblog to admitting team 11/06/18 20:13 - Spoke to Dr Beckford. Will admit Discussed with Violette Earl and Gordon. Carline Rodas PGY2 *DC/Admit/Observation/Transfer Diagnosis at time of Disposition: Thrombosis of right saphenous vein Cellulitis Qualifiers: Site of cellulitis: extremity Site of cellulitis of extremity: lower extremity Laterality: right Qualified Code(s): L03.115 - Cellulitis of right lower limb - Discharge Dispostion Decision to Admit order: Yes - Referrals - Patient Instructions - Post Discharge Activity
[2018-11-06] MEDS ORDERED: ACETAMINOPHEN 1000 MG/100 ML VIAL (NON FORMULARY) IVPB ONE (17:21)
[2018-11-06] MEDS ORDERED: CLINDAMYCIN IVPB 300 MG in DEXTROSE 5%-WATER - 48 ML IVPB ONE (17:27)
[2018-11-06 17:51] LABS: BASO % 0.3 % (0-2.0); HEMATOCRIT 38.8 % (32.4-45.2); HEMOGLOBIN 13.3 GM/dL (10.7-15.3); LYMPH % 39.1 % (8-40); MCH 33.6 pg (25.7-33.7); MCHC 34.2 g/dl (32.0-36.0); MEAN CELL VOLUME 98.2 fl (80-96); MEAN PLT VOLUME 6.7 fl (7.5-11.1); MONO % 15.8 % (3.8-10.2); NEUT % 44.8 % (42.8-82.8); PLATELET COUNT 190 K/MM3 (134-434); RBC 3.95 M/mm3 (3.60-5.2); RDW 13.2 % (11.6-15.6); WHITE BLOOD COUNT 9.4 K/mm3 (4.0-10.0)
[2018-11-06 18:23] LABS: ALBUMIN 3.1 g/dl (3.4-5.0); BILIRUBIN,TOTAL 0.4 mg/dL (0.2-1); BLOOD UREA NITROGEN 21.5 mg/dL (7-18); CALCIUM 8.8 mg/dL (8.5-10.1); CREATININE 0.8 mg/dL (0.55-1.3); POTASSIUM 5.2 mmol/L (3.5-5.1); TOT PROT 6.6 g/dl (6.4-8.2)
[2018-11-06] MEDS ORDERED: ACETAMINOPHEN INJECTION 100 ML IVPB ONE ×2 (18:46→21:19)
[2018-11-06] MEDS ORDERED: DIVALPROEX SODIUM 250 MG TABLET E.C. PO ONE (20:01)
[2018-11-06] MEDS ORDERED: levETIRAcetam 500 MG TABLET (FP) PO ONE (20:01)
--- NOTE | 2018-11-06 20:26 | PDOC ---
Documentation entered by Ashok Branham SCRIBE, acting as scribe for Yajaira Leyva MD. Yajaira Leyva MD: This documentation has been prepared by the Yonas espinoza Daniel, SCRIBE, under my direction and personally reviewed by me in its entirety. I confirm that the documentation accurately reflects all work, treatment, procedures, and medical decision making performed by me. Attending Attestation - Resident Resident Name: Carline Rodas - ED Attending Attestation I have performed the following: I have examined & evaluated the patient, The case was reviewed & discussed with the resident, I agree w/resident's findings & plan, Exceptions are as noted - HPI HPI: 11/06/18 17:28 The patient is a 68 year old female with a past medical history of CHF, chronic lower extremity edema, and seizure disorder here today from assisted living for evaluation of worsening right lower extremity edema. The patients sister reports that she has had worsening right lower extremity edema with warmth, redness, and weakness since tuesday (11/04/18). Sister states that the left leg is at baseline. Patient denies headache, lightheadedness. Denies fever, chills. Denies chest pain, shortness of breath. Denies nausea, vomiting, diarrhea, abdominal pain. Allergies: azithromycin, ceftriaxone - Physicial Exam PE: 11/06/18 20:05 68 yo female from [facility] for right leg swelling, the duplex doppler is NEGATIVE for DEEP vein thrombosis but there is a superficial thrombosis and increased erythema labs reviewed petite 68 yo female in no acute distress head ncat neck supple lungs no wheezing,bi crackles cvs [id number] abd soft,nontender extremities +chronic venous stasis skin changes to LLE but the right leg is swollen with erythema from her ankle to the inner thigh neuro alert and conversant,moving all extremities 11/06/18 20:12 - Medical Decision Making 11/06/18 19:09 68 yo female with chronic venous stasis and today has cellulitis, her RLE is swollen and larger than her left leg PMH CHF,Necrosis of femur,seizures Social history: lives at [facility] 11/06/18 20:24 pt will be admitted for RLE cellulitis Dr Younger admitting MD lees
--- NOTE | 2018-11-06 20:52 | HP ---
Admitting History and Physical - Primary Care Physician PCP: Tressa Beckford - Admission History of Present Illness: 68 year old female with a past medical history of CHF, chronic lower extremity edema, and seizure disorder here today from assisted living for evaluation of worsening right lower extremity edema. The patients sister reports that she has had worsening right lower extremity edema with warmth, redness, and weakness since tuesday (11/04/18). Sister states that the left leg is at baseline. 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 Cardiovascular: Yes: CHF, Other (Venous stasis) Psych: Yes: Depression Musculoskeletal: Yes: Other (Osteoporosis) - Smoking History Smoking history: Never smoked Have you smoked in the past 12 months: No - Alcohol/Substance Use Hx Alcohol Use: No Home Medications - Allergies Allergies/Adverse Reactions: Allergies Allergy/AdvReac Type Severity Reaction Status Date / Time azithromycin [From Zithromax] AdvReac Verified 12/28/17 19:20 ceftriaxone AdvReac Verified 12/28/17 19:20 - Home Medications Home Medications: Ambulatory Orders Acetaminophen 650 mg PO DAILY 11/06/18 Calcium Citrate [Calcitrate] 200 mg PO DAILY 11/06/18 Chlorhexidine Gluconate [Peridex -] 15 ml MM BID 11/06/18 Divalproex Sodium [Depakote] 1,000 mg PO AC 11/06/18 Ergocalciferol (Vitamin D2) [Vitamin D2] 50,000 unit PO WEEKLY 11/06/18 Furosemide [Lasix] 20 mg PO DAILY 11/06/18 Ibuprofen [Motrin -] 600 mg PO TID 11/06/18 Levothyroxine Sodium [Levoxyl] 100 mcg PO AC 11/06/18 Polyvinyl Alcohol [Liquitears] 15 ml OP BID 11/06/18 Potassium Chloride 10 meq PO DAILY 11/06/18 Silver Sulfadiazine [Ssd] 1 applic TP DAILY 11/06/18 Depakote 750 mg PO HS 11/07/18 Keppra 1,500 mg PO BID 11/07/18 Physical Examination Vital Signs: Vital Signs Temperature 98.6 F 11/06/18 16:52 Pulse Rate 80 11/06/18 16:52 Respiratory Rate 20 11/06/18 16:52 Blood Pressure 158/84 11/06/18 16:52 O2 Sat by Pulse Oximetry (%) 97 11/06/18 16:52 Constitutional: Yes: No Distress HENT: Yes: Atraumatic Neck: Yes: Supple Cardiovascular: Yes: Regular Rate and Rhythm Respiratory: Yes: CTA Bilaterally Gastrointestinal: Yes: Normal Bowel Sounds Extremities: Yes: Other (b/l annemarie warm , red and swollen..R greater than L) Edema: Yes Edema: LLE: 3+, RLE: 3+ Neurological: Yes: Alert, Oriented Labs: CBC, BMP 11/06/18 17:37 11/06/18 17:37 Imaging - Results X-ray: Report Reviewed Problem List - Problems (1) Cellulitis Assessment/Plan: iv abx id consult dvt ppx Code(s): L03.90 - CELLULITIS, UNSPECIFIED Qualifiers: Site of cellulitis: extremity Site of cellulitis of extremity: lower extremity Laterality: right Qualified Code(s): L03.115 - Cellulitis of right lower limb (2) Thrombosis of right saphenous vein Code(s): I82.811 - EMBOLISM AND THROMBOSIS OF SUPERFICIAL VEINS OF R LOW EXTREM (3) CHF (congestive heart failure) Code(s): I50.9 - HEART FAILURE, UNSPECIFIED (4) Hypothyroidism Assessment/Plan: on meds Code(s): E03.9 - HYPOTHYROIDISM, UNSPECIFIED (5) Seizure disorder Assessment/Plan: on meds stable Code(s): G40.909 - EPILEPSY, UNSP, NOT INTRACTABLE, WITHOUT STATUS EPILEPTICUS Assessment/Plan Laboratory Tests 11/06/18 11/06/18 17:37 17:37 WBC 9.4 RBC 3.95 Hgb 13.3 Hct 38.8 MCV 98.2 H MCH 33.6 MCHC 34.2 RDW 13.2 Plt Count 190 D MPV 6.7 L Absolute Neuts (auto) 4.2 Neutrophils % 44.8 Lymphocytes % 39.1 Monocytes % 15.8 H Eosinophils % 0.0 Basophils % 0.3 Nucleated RBC % 0 Sodium 143 Potassium 5.2 H Chloride 104 Carbon Dioxide 36 H Anion Gap 4 L BUN 21.5 H Creatinine 0.8 Est GFR (CKD-EPI)AfAm 89.04 Est GFR (CKD-EPI)NonAf 76.83 Random Glucose 90 Calcium 8.8 Total Bilirubin 0.4 AST 13 L ALT 9 L Alkaline Phosphatase 71 Total Protein 6.6 Albumin 3.1 L Active Medications Generic Name Dose Route Start Last Admin Trade Name Freq PRN Reason Stop Dose Admin Acetaminophen 650 mg 11/06/18 20:55 11/07/18 10:21 Tylenol - PO 650 mg Q6H PRN Administration FEVER Divalproex Sodium 250 mg 11/07/18 22:00 Depakote - PO HS ELIS Furosemide 20 mg 11/07/18 10:00 11/07/18 10:21 Lasix - PO 20 mg DAILY ELIS Administration Heparin Sodium (Porcine) 5,000 unit 11/06/18 22:00 11/07/18 10:21 Heparin - SQ 5,000 unit BID ELIS Administration Vancomycin HCl 1,500 mg/ 500 mls @ 250 mls/hr 11/07/18 12:15 11/07/18 13:10 Dextrose IVPB 250 mls/hr Q24H ELIS Administration Protocol Levothyroxine Sodium 100 mcg 11/07/18 10:00 11/07/18 10:21 Synthroid - PO 100 mcg DAILY ELIS Administration
[2018-11-06] MEDS ORDERED: HEPARIN NA (PORCINE) 5,000 UNITS/ML 1ML VIAL ONE (22:55)
[2018-11-06] MEDS: HEPARIN NA (PORCINE) 5,000 UNITS/ML 1ML VIAL SQ SCH (23:55)
--- NOTE | 2018-11-07 10:02 | CON.CARD ---
Consult Consult Specialty:: Cardiology Referred by:: Dr. Beckford Reason for Consultation:: Cardiac evaluation - History of Present Illness Chief Complaint: Leg swelling History of Present Illness: Patient is a 68 year old female with underlying history of chronic LE edema currently right > left with erythema, history of left hop aseptic necrosis s/p replacement and seizure disorder who presents with leg swelling. She walks with a walker but has difficulty due to pain. She denies chest pain, shortness of breath or palpitations. She denies paroxysmal nocturnal dyspnea or orthopnea. She denies feer or chills. She denies nausea, vomiting, diarrhea or abdominal pain. She denies headache or lightheadedness. 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 Cardio/Vascular: Yes: CHF, Other (Venous stasis) Psych: Yes: Depression Musculoskeletal: Yes: Other (Osteoporosis) - Alcohol/Substance Use Hx Alcohol Use: No - Smoking History Smoking history: Never smoked Have you smoked in the past 12 months: No Home Medications - Allergies Allergies/Adverse Reactions: Allergies Allergy/AdvReac Type Severity Reaction Status Date / Time azithromycin [From Zithromax] AdvReac Verified 12/28/17 19:20 ceftriaxone AdvReac Verified 12/28/17 19:20 - Home Medications Home Medications: Ambulatory Orders Acetaminophen 650 mg PO DAILY 11/06/18 Calcium Citrate [Calcitrate] 200 mg PO DAILY 11/06/18 Chlorhexidine Gluconate [Peridex -] 15 ml MM BID 11/06/18 Divalproex Sodium [Depakote] 250 mg PO HS 11/06/18 Ergocalciferol (Vitamin D2) [Vitamin D2] 50,000 unit PO WEEKLY 11/06/18 Furosemide [Lasix] 20 mg PO DAILY 11/06/18 Ibuprofen [Motrin -] 600 mg PO TID 11/06/18 Levothyroxine Sodium [Levoxyl] 100 mcg PO DAILY 11/06/18 Polyvinyl Alcohol [Liquitears] 15 ml OP BID 11/06/18 Potassium Chloride 10 meq PO DAILY 11/06/18 Silver Sulfadiazine [Ssd] 1 applic TP DAILY 11/06/18 Review of Systems - Review of Systems Constitutional: denies: Chills, Fever Cardiovascular: denies: Chest Pain, Palpitations, Shortness of Breath Respiratory: denies: Cough, Hemoptysis, Orthopnea, PND, SOB, SOB on Exertion Gastrointestinal: denies: Abdominal Pain, Constipation, Diarrhea, Melena, Nausea , Rectal Bleeding, Vomiting Genitourinary: denies: Dysuria, Hematuria Neurological: reports: Seizure. denies: Dizziness, Headache, Syncope Vital Signs: Vital Signs Temperature 98.4 F 11/07/18 05:19 Pulse Rate 85 11/07/18 05:19 Respiratory Rate 18 11/07/18 05:19 Blood Pressure 136/58 L 11/07/18 05:19 O2 Sat by Pulse Oximetry (%) 97 11/07/18 00:33 Eyes: Yes: PERRL HENT: Yes: Atraumatic Neck: Yes: Supple Respiratory: Yes: CTA Bilaterally Gastrointestinal: Yes: Normal Bowel Sounds, Soft. No: Tenderness Cardiovascular: Yes: Regular Rate and Rhythm JVD: No PMI: Non-Displaced Heart Sounds: Yes: S1, S2 Murmur: No: Systolic Murmur, Diastolic Murmur Edema: Yes Edema: LLE: 2+, RLE: 3+ - Other Data Labs, Other Data: CBC, BMP 11/06/18 17:37 11/06/18 17:37 Problem List - Problems (1) Cellulitis Code(s): L03.90 - CELLULITIS, UNSPECIFIED Qualifiers: Site of cellulitis: extremity Site of cellulitis of extremity: lower extremity Laterality: right Qualified Code(s): L03.115 - Cellulitis of right lower limb (2) CHF (congestive heart failure) Code(s): I50.9 - HEART FAILURE, UNSPECIFIED (3) Hypothyroidism Code(s): E03.9 - HYPOTHYROIDISM, UNSPECIFIED (4) Seizure disorder Code(s): G40.909 - EPILEPSY, UNSP, NOT INTRACTABLE, WITHOUT STATUS EPILEPTICUS Assessment/Plan 1. LE swelling, DVT ruled out, ? cellulitis 2. ? Underlying diastolic heart disease 3. HTN 4. Hypothyroidism PLAN: 1. Antibiotic coverage 2. Lasix 3. DVT prophylaxis 4. Echocardiography to assess LV/RV and valvular function Abner Hollingsworth MD
[2018-11-07] MEDS: HEPARIN NA (PORCINE) 5,000 UNITS/ML 1ML VIAL SQ SCH ×2 (10:21→21:21)
[2018-11-07] MEDS: FUROSEMIDE 20 MG TABLET (FP) PO SCH (10:21)
[2018-11-07] MEDS: ACETAMINOPHEN 325 MG TABLET (FP) PO PRN (10:21)
[2018-11-07] MEDS: LEVOTHYROXINE NA 100 MCG TABLET (FP) PO SCH (10:21)
--- NOTE | 2018-11-07 11:59 | CON.ID ---
Consult Consult Specialty:: infectious diseases Referred by:: Reason for Consultation:: cellulitis of the leg - History of Present Illness Chief Complaint: swelling and redness with small eruptions of the skin on the left leg History of Present Illness: 68 year old female with a past medical history of CHF, chronic lower extremity edema, and seizure disorder here today from assisted living for evaluation of worsening right lower extremity edema. The patients sister reports that she has had worsening right lower extremity edema with warmth, redness, and weakness since Tuesday (11/04/18). Sister states that the left leg is at baseline. 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 Cardio/Vascular: Yes: CHF, Other (Venous stasis) Psych: Yes: Depression Musculoskeletal: Yes: Other (Osteoporosis) - Alcohol/Substance Use Hx Alcohol Use: No - Smoking History Smoking history: Never smoked Have you smoked in the past 12 months: No Home Medications - Allergies Allergies/Adverse Reactions: Allergies Allergy/AdvReac Type Severity Reaction Status Date / Time azithromycin [From Zithromax] AdvReac Verified 12/28/17 19:20 ceftriaxone AdvReac Verified 12/28/17 19:20 - Home Medications Home Medications: Ambulatory Orders Acetaminophen 650 mg PO DAILY 11/06/18 Calcium Citrate [Calcitrate] 200 mg PO DAILY 11/06/18 Chlorhexidine Gluconate [Peridex -] 15 ml MM BID 11/06/18 Divalproex Sodium [Depakote] 250 mg PO HS 11/06/18 Ergocalciferol (Vitamin D2) [Vitamin D2] 50,000 unit PO WEEKLY 11/06/18 Furosemide [Lasix] 20 mg PO DAILY 11/06/18 Ibuprofen [Motrin -] 600 mg PO TID 11/06/18 Levothyroxine Sodium [Levoxyl] 100 mcg PO DAILY 11/06/18 Polyvinyl Alcohol [Liquitears] 15 ml OP BID 11/06/18 Potassium Chloride 10 meq PO DAILY 11/06/18 Silver Sulfadiazine [Ssd] 1 applic TP DAILY 11/06/18 Review of Systems - Review of Systems Constitutional: reports: No Symptoms Eyes: reports: No Symptoms HENT: reports: No Symptoms Neck: reports: No Symptoms Cardiovascular: reports: No Symptoms Respiratory: reports: No Symptoms Gastrointestinal: reports: No Symptoms Genitourinary: reports: No Symptoms Musculoskeletal: reports: Other Integumentary: reports: Erythema, Wound Neurological: reports: No Symptoms Endocrine: reports: No Symptoms Hematology/Lymphatic: reports: No Symptoms Psychiatric: reports: No Symptoms Physical Exam Vital Signs: Vital Signs Temperature 99.0 F 11/07/18 10:19 Pulse Rate 91 H 11/07/18 10:19 Respiratory Rate 18 11/07/18 10:19 Blood Pressure 147/55 L 11/07/18 10:19 O2 Sat by Pulse Oximetry (%) 97 11/07/18 00:33 Constitutional: Yes: Calm, Mild Distress, Obese Cardiovascular: Yes: Regular Rate and Rhythm Respiratory: Yes: Regular, CTA Bilaterally Gastrointestinal: Yes: Normal Bowel Sounds, Soft Musculoskeletal: Yes: Other Extremities: Yes: Other (swelling with erythema) Neurological: Yes: Alert, Oriented Psychiatric: Yes: Alert, Oriented Labs: CBC, BMP 11/06/18 17:37 11/06/18 17:37 Imaging - Results X-ray: Report Reviewed, Image Reviewed Assessment/Plan Problem List - Problems (1) Cellulitis Code(s): L03.90 - CELLULITIS, UNSPECIFIED Qualifiers: Site of cellulitis: extremity Site of cellulitis of extremity: lower extremity Laterality: right Qualified Code(s): L03.115 - Cellulitis of right lower limb (2) Thrombosis of right saphenous vein Code(s): I82.811 - EMBOLISM AND THROMBOSIS OF SUPERFICIAL VEINS OF R LOW EXTREM (3) CHF (congestive heart failure) Code(s): I50.9 - HEART FAILURE, UNSPECIFIED (4) Hypothyroidism Code(s): E03.9 - HYPOTHYROIDISM, UNSPECIFIED (5) Seizure disorder Code(s): G40.909 - EPILEPSY, UNSP, NOT INTRACTABLE, WITHOUT STATUS EPILEPTICUS plan will start patient on abx elevation of the leg
[2018-11-07] MEDS: VANCOMYCIN HCL 1,500 MG in DEXTROSE 5%-WATER - 500 ML IVPB SCH (13:10)
--- NOTE | 2018-11-07 14:14 | CONSULT ---
- Consultation REQUESTING PROVIDER: CONSULT REQUEST: We have been asked to surgically evaluate this patient for ( superficial clot). PCP:Tressa Beckford HISTORY OF PRESENT ILLNESS: 68 y/o F w/ PMHx CHF, chronic lower extremity edema , and seizure disorder admitted from assisted living for evaluation of worsening right lower extremity edema. Vascular consulted for R GSV clot. History obtained from chart as pt unable to provide history (when questioned pt responds "ask my sister, I don't know"). Per EMR pts sister reports worsening of her right lower extremity edema with increased warmth, redness, and weakness since tuesday (11/04/18). Left leg is at baseline according to pts sister. PMHx: as above PSHx: unknown Home Medications Medication Instructions Recorded Acetaminophen 650 mg PO DAILY 11/06/18 Calcium Citrate [Calcitrate] 200 mg PO DAILY 11/06/18 Chlorhexidine Gluconate [Peridex -] 15 ml MM BID 11/06/18 Divalproex Sodium [Depakote] 1,000 mg PO AC 11/06/18 Ergocalciferol (Vitamin D2) 50,000 unit PO WEEKLY 11/06/18 [Vitamin D2] Furosemide [Lasix] 20 mg PO DAILY 11/06/18 Ibuprofen [Motrin -] 600 mg PO TID 11/06/18 Levothyroxine Sodium [Levoxyl] 100 mcg PO DAILY 11/06/18 Polyvinyl Alcohol [Liquitears] 15 ml OP BID 11/06/18 Potassium Chloride 10 meq PO DAILY 11/06/18 Silver Sulfadiazine [Ssd] 1 applic TP DAILY 11/06/18 Depakote 750 mg PO HS 11/07/18 Keppra 1,500 mg PO BID 11/07/18 Allergies Allergy/AdvReac Type Severity Reaction Status Date / Time azithromycin [From Zithromax] AdvReac Verified 12/28/17 19:20 ceftriaxone AdvReac Verified 12/28/17 19:20 REVIEW OF SYSTEMS: Unable to obtain PHYSICAL EXAM: GENERAL: Awake, alert, in no acute distress. HEAD: Normal with no signs of trauma. LOWER EXTREMITIES: B/L les with 1+ pitting edema to knees, calfs soft, wiggles toes without issue. No pain with dorsi/plantarflexion. Right lower ext with erythema to mid ferrer, no blisters, no open wounds. +ttp along anterior ferrer and medial calf/thigh. SILT, LLE with no erythema or open wounds. Vasc: 2+ dp b/l Vital Signs Temperature 99.0 F 11/07/18 10:19 Pulse Rate 91 H 11/07/18 10:19 Respiratory Rate 18 11/07/18 10:19 Blood Pressure 147/55 L 11/07/18 10:19 O2 Sat by Pulse Oximetry (%) 97 11/07/18 00:33 Lab Results WBC 9.4 K/mm3 (4.0-10.0) 11/06/18 17:37 RBC 3.95 M/mm3 (3.60-5.2) 11/06/18 17:37 Hgb 13.3 GM/dL (10.7-15.3) 11/06/18 17:37 Hct 38.8 % (32.4-45.2) 11/06/18 17:37 MCV 98.2 fl (80-96) H 11/06/18 17:37 MCHC 34.2 g/dl (32.0-36.0) 11/06/18 17:37 RDW 13.2 % (11.6-15.6) 11/06/18 17:37 Plt Count 190 K/MM3 (134-434) D 11/06/18 17:37 Sodium 143 mmol/L (136-145) 11/06/18 17:37 Potassium 5.2 mmol/L (3.5-5.1) H 11/06/18 17:37 Chloride 104 mmol/L (98-107) 11/06/18 17:37 Carbon Dioxide 36 mmol/L (21-32) H 11/06/18 17:37 Anion Gap 4 MMOL/L (8-16) L 11/06/18 17:37 BUN 21.5 mg/dL (7-18) H 11/06/18 17:37 Creatinine 0.8 mg/dL (0.55-1.3) 11/06/18 17:37 Random Glucose 90 mg/dL (74-106) 11/06/18 17:37 Calcium 8.8 mg/dL (8.5-10.1) 11/06/18 17:37 Venous Duplex: (11/06/18): There is no evidence of DVT in the right lower ext. Right greater saphenous vein thrombosis involving it prox/mid and distal portion. A/P: 68 y/o F w/ PMHx CHF, chronic lower extremity edema, and seizure disorder admitted from assisted living for evaluation of worsening right lower extremity edema. Vascular consulted for R GSV clot. Images reviewed by attending, Dr Thompson, SVT appears chronic. Abx per ID Strict le elevation while at rest Offloading to prevent ulcer formation Remainder of care per primary team d/w attending Dr Thompson
--- NOTE | 2018-11-07 15:42 | ECHO ---
Version: 1 Name: JETT PORTILLO Exam: Adult Echocardiogram Study Date: 11/07/2018, 2:40 PM Age: 68 Years MMode/2D Measurements & Calculations LVIDd: 3.2 cm LVIDs: 1.96 cm LVOT diam: 2.14 cm Ao root diam: 2.7 cm LA dimension: 2.7 cm Doppler Measurements & Calculations MV E max vinny: 83.4 cm/sec MV A max vinny: 102.3 cm/sec MV E/A: 0.81 Ao max P.5 mmHg LEVI(I,D): 2.9 cm Ao mean P.2 mmHg LV V1 mean: 61.1 cm/sec Ao V2 max: 136.5 cm/sec LV V1 mean P.76 mmHg Left Ventricle The left ventricular size, thickness and function are normal. Ejection Fraction = 70. Right Ventricle The right ventricle is normal in size and function. Atria Normal left and right atrial size and function. Mitral Valve The mitral valve is grossly normal. There is mild mitral regurgitation. Tricuspid Valve The tricuspid valve is normal. There is mild tricuspid regurgitation. Aortic Valve The aortic valve is normal in structure and function. Pulmonic Valve The pulmonic valve is not well visualized. Great Vessels The aortic root is normal size. Normal aortic arch, descending and ascending aorta. Pericardium/Pleura There is no pericardial effusion. Summary Statements The left ventricular size, thickness and function are normal The right ventricle is normal in size and function. Normal left and right atrial size and function. The mitral valve is grossly normal. There is mild mitral regurgitation. The tricuspid valve is normal. There is mild tricuspid regurgitation. The aortic valve is normal in structure and function. The pulmonic valve is not well visualized. The aortic root is normal size. Normal aortic arch, descending and ascending aorta There is no pericardial effusion. Bhavesh Niremberg 11/07/2018, 2:41 PM Ordering Physician: Abner Hollingsworth Performed By: Gabbi Balderas
--- NOTE | 2018-11-07 18:42 | PN ---
Progress Note, Physician - Current Medication List Current Medications: Active Medications Acetaminophen (Tylenol -) 650 mg PO Q6H PRN PRN Reason: FEVER Last Admin: 11/07/18 10:21 Dose: 650 mg Divalproex Sodium (Depakote -) 250 mg PO HS ELIS Furosemide (Lasix -) 20 mg PO DAILY ELIS Last Admin: 11/07/18 10:21 Dose: 20 mg Heparin Sodium (Porcine) (Heparin -) 5,000 unit SQ BID ELIS Last Admin: 11/07/18 10:21 Dose: 5,000 unit Vancomycin HCl 1,500 mg/ (Dextrose) 500 mls @ 250 mls/hr IVPB Q24H ELIS; Protocol Last Admin: 11/07/18 13:10 Dose: 250 mls/hr Levothyroxine Sodium (Synthroid -) 100 mcg PO DAILY COUNTS INCLUDE 234 BEDS AT THE [facility] Last Admin: 11/07/18 10:21 Dose: 100 mcg - Objective Vital Signs: Vital Signs Temperature 99.0 F 11/07/18 10:19 Pulse Rate 91 H 11/07/18 10:19 Respiratory Rate 18 11/07/18 10:19 Blood Pressure 147/55 L 11/07/18 10:19 O2 Sat by Pulse Oximetry (%) 99 11/07/18 09:00 Constitutional: Yes: No Distress HENT: Yes: Atraumatic Neck: Yes: Supple Cardiovascular: Yes: Regular Rate and Rhythm Respiratory: Yes: CTA Bilaterally Gastrointestinal: Yes: Normal Bowel Sounds Extremities: Yes: Other (b/l annemarie cellulitis) Edema: Yes Edema: LLE: 2+, RLE: 2+ Peripheral Pulses WNL: Yes Neurological: Yes: Alert, Oriented Labs: CBC, BMP 11/06/18 17:37 11/06/18 17:37 Problem List - Problems (1) Cellulitis Assessment/Plan: iv abx id consult dvt ppx Code(s): L03.90 - CELLULITIS, UNSPECIFIED Qualifiers: Site of cellulitis: extremity Site of cellulitis of extremity: lower extremity Laterality: right Qualified Code(s): L03.115 - Cellulitis of right lower limb (2) Thrombosis of right saphenous vein Code(s): I82.811 - EMBOLISM AND THROMBOSIS OF SUPERFICIAL VEINS OF R LOW EXTREM (3) CHF (congestive heart failure) Code(s): I50.9 - HEART FAILURE, UNSPECIFIED (4) Hypothyroidism Code(s): E03.9 - HYPOTHYROIDISM, UNSPECIFIED (5) Seizure disorder Code(s): G40.909 - EPILEPSY, UNSP, NOT INTRACTABLE, WITHOUT STATUS EPILEPTICUS Assessment/Plan DR ACOSTA WILL BE COVERING FROM NOVEMBER 08- NOVEMBER 12
[2018-11-07] MEDS: levETIRAcetam 500 MG TABLET (FP) PO SCH (21:21)
[2018-11-07] MEDS: DIVALPROEX NA *ER* EXTEND REL 250 MG TABLET.SA PO SCH (21:22)
[2018-11-07] MEDS ORDERED: levETIRAcetam 500 MG TABLET (FP) PO SCH ×2 (22:00)
[2018-11-07] MEDS ORDERED: DIVALPROEX SODIUM 250 MG TABLET E.C. PO SCH (22:00)
[2018-11-07 22:09] LABS: BASO % 0.1 % (0-2.0); HEMATOCRIT 37.8 % (32.4-45.2); HEMOGLOBIN 12.8 GM/dL (10.7-15.3); LYMPH % 35.3 % (8-40); MCH 33.4 pg (25.7-33.7); MCHC 33.8 g/dl (32.0-36.0); MEAN CELL VOLUME 98.7 fl (80-96); MEAN PLT VOLUME 6.5 fl (7.5-11.1); MONO % 18.4 % (3.8-10.2); NEUT % 46.2 % (42.8-82.8); PLATELET COUNT 167 K/MM3 (134-434); RBC 3.83 M/mm3 (3.60-5.2); RDW 13.2 % (11.6-15.6); WHITE BLOOD COUNT 6.8 K/mm3 (4.0-10.0)
[2018-11-07 22:10] LABS: ALBUMIN 2.6 g/dl (3.4-5.0); BILIRUBIN,TOTAL 0.4 mg/dL (0.2-1); BLOOD UREA NITROGEN 21.2 mg/dL (7-18); CREATININE 0.8 mg/dL (0.55-1.3); POTASSIUM 4.3 mmol/L (3.5-5.1); TOT PROT 5.6 g/dl (6.4-8.2)
[2018-11-08] MEDS: DIVALPROEX NA *ER* EXTEND REL 500 MG TABLET.SA (FP) PO SCH (06:25)
[2018-11-08 07:41] LABS: BASO % 0.1 % (0-2.0); HEMATOCRIT 35.3 % (32.4-45.2); LYMPH % 35.8 % (8-40); MCH 33.3 pg (25.7-33.7); MCHC 34.1 g/dl (32.0-36.0); MEAN CELL VOLUME 97.5 fl (80-96); MEAN PLT VOLUME 6.5 fl (7.5-11.1); MONO % 14.5 % (3.8-10.2); NEUT % 49.6 % (42.8-82.8); PLATELET COUNT 169 K/MM3 (134-434); RBC 3.62 M/mm3 (3.60-5.2); RDW 13.2 % (11.6-15.6); WHITE BLOOD COUNT 6.8 K/mm3 (4.0-10.0)
[2018-11-08 08:00] LABS: ALBUMIN 2.6 g/dl (3.4-5.0); BILIRUBIN,TOTAL 0.6 mg/dL (0.2-1); BLOOD UREA NITROGEN 20.6 mg/dL (7-18); CALCIUM 8.3 mg/dL (8.5-10.1); CREATININE 0.8 mg/dL (0.55-1.3); POTASSIUM 4.5 mmol/L (3.5-5.1); TOT PROT 5.7 g/dl (6.4-8.2)
--- NOTE | 2018-11-08 08:35 | PN ---
Progress Note, Physician History of Present Illness: leg still red and swollen tender - Current Medication List Current Medications: Active Medications Acetaminophen (Tylenol -) 650 mg PO Q6H PRN PRN Reason: FEVER Last Admin: 11/07/18 10:21 Dose: 650 mg Divalproex Sodium (Depakote *Er* -) 1,000 mg PO AM [facility] Last Admin: 11/08/18 06:25 Dose: 1,000 mg Divalproex Sodium (Depakote *Er* -) 750 mg PO HS [facility] Last Admin: 11/07/18 21:22 Dose: 750 mg Furosemide (Lasix -) 20 mg PO DAILY [facility] Last Admin: 11/07/18 10:21 Dose: 20 mg Heparin Sodium (Porcine) (Heparin -) 5,000 unit SQ BID [facility] Last Admin: 11/07/18 21:21 Dose: 5,000 unit Vancomycin HCl 1,500 mg/ (Dextrose) 500 mls @ 250 mls/hr IVPB Q24H [facility]; Protocol Last Admin: 11/07/18 13:10 Dose: 250 mls/hr Levetiracetam (Keppra -) 1,500 mg PO BID [facility] Last Admin: 11/07/18 21:21 Dose: 1,500 mg Levothyroxine Sodium (Synthroid -) 100 mcg PO DAILY [facility] Last Admin: 11/07/18 10:21 Dose: 100 mcg - Objective Vital Signs: Vital Signs Temperature 99.9 F H 11/08/18 05:57 Pulse Rate 90 11/08/18 05:57 Respiratory Rate 18 11/08/18 05:57 Blood Pressure 123/56 L 11/08/18 05:57 O2 Sat by Pulse Oximetry (%) 99 11/07/18 22:00 Constitutional: Yes: No Distress, Calm Cardiovascular: Yes: Regular Rate and Rhythm Respiratory: Yes: Regular, CTA Bilaterally Gastrointestinal: Yes: Normal Bowel Sounds, Soft Musculoskeletal: Yes: WNL Extremities: Yes: Other Integumentary: Yes: Other (swelling and tenderness) Neurological: Yes: Alert, Oriented Psychiatric: Yes: Alert, Oriented Labs: CBC, BMP 11/08/18 07:00 11/08/18 07:00 Assessment/Plan Problem List - Problems (1) Cellulitis Code(s): L03.90 - CELLULITIS, UNSPECIFIED Qualifiers: Site of cellulitis: extremity Site of cellulitis of extremity: lower extremity Laterality: right Qualified Code(s): L03.115 - Cellulitis of right lower limb (2) Thrombosis of right saphenous vein Code(s): I82.811 - EMBOLISM AND THROMBOSIS OF SUPERFICIAL VEINS OF R LOW EXTREM (3) CHF (congestive heart failure) Code(s): I50.9 - HEART FAILURE, UNSPECIFIED (4) Hypothyroidism Code(s): E03.9 - HYPOTHYROIDISM, UNSPECIFIED (5) Seizure disorder Code(s): G40.909 - EPILEPSY, UNSP, NOT INTRACTABLE, WITHOUT STATUS EPILEPTICUS plan continue abx elevation of the leg
--- NOTE | 2018-11-08 10:08 | PN ---
Progress Note, Physician History of Present Illness: RLE edema with cellulitis and tenderness. - Current Medication List Current Medications: Active Medications Acetaminophen (Tylenol -) 650 mg PO Q6H PRN PRN Reason: FEVER Last Admin: 11/07/18 10:21 Dose: 650 mg Divalproex Sodium (Depakote *Er* -) 1,000 mg PO AM [facility] Last Admin: 11/08/18 06:25 Dose: 1,000 mg Divalproex Sodium (Depakote *Er* -) 750 mg PO HS [facility] Last Admin: 11/07/18 21:22 Dose: 750 mg Furosemide (Lasix -) 20 mg PO DAILY [facility] Last Admin: 11/07/18 10:21 Dose: 20 mg Heparin Sodium (Porcine) (Heparin -) 5,000 unit SQ BID [facility] Last Admin: 11/07/18 21:21 Dose: 5,000 unit Vancomycin HCl 1,500 mg/ (Dextrose) 500 mls @ 250 mls/hr IVPB Q24H [facility]; Protocol Last Admin: 11/07/18 13:10 Dose: 250 mls/hr Levetiracetam (Keppra -) 1,500 mg PO BID [facility] Last Admin: 11/07/18 21:21 Dose: 1,500 mg Levothyroxine Sodium (Synthroid -) 100 mcg PO DAILY [facility] Last Admin: 11/07/18 10:21 Dose: 100 mcg - Objective Vital Signs: Vital Signs Temperature 99.9 F H 11/08/18 05:57 Pulse Rate 90 11/08/18 05:57 Respiratory Rate 18 11/08/18 05:57 Blood Pressure 123/56 L 11/08/18 05:57 O2 Sat by Pulse Oximetry (%) 99 11/07/18 22:00 Constitutional: Yes: No Distress, Calm Neck: Yes: Supple Cardiovascular: Yes: Regular Rate and Rhythm Respiratory: Yes: Regular, CTA Bilaterally Gastrointestinal: Yes: Normal Bowel Sounds, Soft Extremities: Yes: Erythema Edema: Yes Edema: LLE: 1+, RLE: 1+ Integumentary: Yes: Venous Stasis Changes Labs: CBC, BMP 11/08/18 07:00 11/08/18 07:00 Problem List - Problems (1) Diastolic dysfunction Code(s): I51.89 - OTHER ILL-DEFINED HEART DISEASES (2) Cellulitis Code(s): L03.90 - CELLULITIS, UNSPECIFIED Qualifiers: Site of cellulitis: extremity Site of cellulitis of extremity: lower extremity Laterality: right Qualified Code(s): L03.115 - Cellulitis of right lower limb (3) Thrombosis of right saphenous vein Code(s): I82.811 - EMBOLISM AND THROMBOSIS OF SUPERFICIAL VEINS OF R LOW EXTREM (4) Hypothyroidism Code(s): E03.9 - HYPOTHYROIDISM, UNSPECIFIED Qualifiers: Hypothyroidism type: unspecified Qualified Code(s): E03.9 - Hypothyroidism , unspecified (5) Seizure disorder Code(s): G40.909 - EPILEPSY, UNSP, NOT INTRACTABLE, WITHOUT STATUS EPILEPTICUS Assessment/Plan 11/07/2018 Echo: Normal LV and RV size and fxn, EF 70%, normal atrial sizes, mild MR, TR Venous Duplex: (11/06/18): There is no evidence of DVT in the right lower ext. Right greater saphenous vein thrombosis involving it prox/mid and distal portion. 1. LE swelling, DVT ruled out, overlying cellulitis RLE 2. Diastolic dysfunction 3. HTN 4. Hypothyroidism 5. Sz d/o 6. Right superficial greater saphenous vein thrombosis PLAN: 1. Antibiotic coverage per ID, leg elevation 2. Lasix 20 qd 3. DVT prophylaxis
[2018-11-08] MEDS: HEPARIN NA (PORCINE) 5,000 UNITS/ML 1ML VIAL SQ SCH ×2 (10:51→21:52)
[2018-11-08] MEDS: FUROSEMIDE 20 MG TABLET (FP) PO SCH (10:51)
[2018-11-08] MEDS: levETIRAcetam 500 MG TABLET (FP) PO SCH ×2 (10:51→21:52)
[2018-11-08] MEDS: LEVOTHYROXINE NA 100 MCG TABLET (FP) PO SCH (10:51)
[2018-11-08] MEDS: VANCOMYCIN HCL 1,500 MG in DEXTROSE 5%-WATER - 500 ML IVPB SCH (11:16)
--- NOTE | 2018-11-08 21:27 | CON.NEURO ---
Consult Consult Specialty:: NEUROLOGY-DOMINICK CASTRO - History of Present Illness History of Present Illness: 68 year old female with a past medical history of CHF, chronic lower extremity edema, and seizure disorder here today from assisted living for evaluation of worsening right lower extremity edema. The patients sister reports that she has had worsening right lower extremity edema with warmth, redness, and weakness since Tuesday (11/04/18). Sister states that the left leg is at baseline. -Last sz. documented to be over 10 years ago, Ms. Koenig does not recall that she has a sz. d/o. Her AST/ALT have been elevated in last few days. denies all neurologic symptoms. L - Past Medical History [facility] [employer]: Yes: Seizure Cardio/Vascular: Yes: CHF, Other (Venous stasis) Psych: Yes: Depression Musculoskeletal: Yes: Other (Osteoporosis) - Alcohol/Substance Use Hx Alcohol Use: No - Smoking History Smoking history: Never smoked Have you smoked in the past 12 months: No Home Medications - Allergies Allergies/Adverse Reactions: Allergies Allergy/AdvReac Type Severity Reaction Status Date / Time azithromycin [From Zithromax] AdvReac Verified 12/28/17 19:20 ceftriaxone AdvReac Verified 12/28/17 19:20 - Home Medications Home Medications: Ambulatory Orders Acetaminophen 650 mg PO DAILY 11/06/18 Calcium Citrate [Calcitrate] 200 mg PO DAILY 11/06/18 Chlorhexidine Gluconate [Peridex -] 15 ml MM BID 11/06/18 Divalproex Sodium [Depakote] 1,000 mg PO AC 11/06/18 Ergocalciferol (Vitamin D2) [Vitamin D2] 50,000 unit PO WEEKLY 11/06/18 Furosemide [Lasix] 20 mg PO DAILY 11/06/18 Ibuprofen [Motrin -] 600 mg PO TID 11/06/18 Levothyroxine Sodium [Levoxyl] 100 mcg PO AC 11/06/18 Polyvinyl Alcohol [Liquitears] 15 ml OP BID 11/06/18 Potassium Chloride 10 meq PO DAILY 11/06/18 Silver Sulfadiazine [Ssd] 1 applic TP DAILY 11/06/18 Depakote 750 mg PO HS 11/07/18 Keppra 1,500 mg PO BID 11/07/18 Physical Exam-Neuro Vital Signs: Vital Signs Temperature 98.1 F 11/08/18 14:56 Pulse Rate 88 11/08/18 14:56 Respiratory Rate 18 11/08/18 05:57 Blood Pressure 150/67 11/08/18 14:56 O2 Sat by Pulse Oximetry (%) 99 11/07/18 22:00 Labs: CBC, BMP 11/08/18 07:00 11/08/18 07:00 - Neuro Exam Dominant Hand: Right Mini Mental Exam: Impaired att/concentration minimally otherwise intact DTR's: 0 Left Achilles, 0 Right Achilles, 1+ Left Bicep, 1+ Right Bicep, 1+ Left Tricep, 1+ Right Tricep, 1+ Left Brachioradialis, 1+ Right Brachioradialis Motor Strength: 4/5: Left Leg, Right Leg (Limited ROM due to pain/swelling), 5/5 : Left Arm, Right Arm Gait: Deferred Assessment/Plan Pt. with sz.d/o, last sz.10 yaers ago, on VPA/Keppra. She is stable on these meds, has mild elevation of AST/ALT(? 2/2 infection), doubt this is related to Valproic Acid but if enzymes are trending upwards than would replace Valproic Acid with Vimpat(Lacosamide. repeat LFTS on Tuesday. Thank you, Areli Yancey MD
[2018-11-08] MEDS ORDERED: PT OWN MED DRAWER 7, Y5N ONE (21:49)
[2018-11-08] MEDS: DIVALPROEX NA *ER* EXTEND REL 250 MG TABLET.SA PO SCH (21:53)
--- NOTE | 2018-11-08 23:18 | PN ---
Progress Note, Physician History of Present Illness: No new complaints - Current Medication List Current Medications: Active Medications Acetaminophen (Tylenol -) 650 mg PO Q6H PRN PRN Reason: FEVER Last Admin: 11/07/18 10:21 Dose: 650 mg Divalproex Sodium (Depakote *Er* -) 1,000 mg PO AM [facility] Last Admin: 11/08/18 06:25 Dose: 1,000 mg Divalproex Sodium (Depakote *Er* -) 750 mg PO HS [facility] Last Admin: 11/08/18 21:53 Dose: 750 mg Furosemide (Lasix -) 20 mg PO DAILY [facility] Last Admin: 11/08/18 10:51 Dose: 20 mg Heparin Sodium (Porcine) (Heparin -) 5,000 unit SQ BID [facility] Last Admin: 11/08/18 21:52 Dose: 5,000 unit Vancomycin HCl 1,500 mg/ (Dextrose) 500 mls @ 250 mls/hr IVPB Q24H [facility]; Protocol Last Admin: 11/08/18 11:16 Dose: 250 mls/hr Levetiracetam (Keppra -) 1,500 mg PO BID [facility] Last Admin: 11/08/18 21:52 Dose: 1,500 mg Levothyroxine Sodium (Synthroid -) 100 mcg PO DAILY [facility] Last Admin: 11/08/18 10:51 Dose: 100 mcg - Objective Vital Signs: Vital Signs Temperature 98 F 11/08/18 22:00 Pulse Rate 80 11/08/18 22:00 Respiratory Rate 20 11/08/18 22:00 Blood Pressure 136/58 L 11/08/18 22:00 O2 Sat by Pulse Oximetry (%) 99 11/08/18 21:00 Neck: Yes: WNL, Supple Cardiovascular: Yes: WNL, Regular Rate and Rhythm Respiratory: Yes: WNL, Regular, CTA Bilaterally Gastrointestinal: Yes: WNL, Normal Bowel Sounds, Soft Extremities: Yes: Other ((+) chronic venous stasis RLE w/ erythema) Edema: Yes Edema: LLE: Trace, RLE: 1+ Labs: CBC, BMP 11/08/18 07:00 11/08/18 07:00 Problem List - Problems (1) Cellulitis Assessment/Plan: Cont IV antibxs Elevation of legs Code(s): L03.90 - CELLULITIS, UNSPECIFIED Qualifiers: Site of cellulitis: extremity Site of cellulitis of extremity: lower extremity Laterality: right Qualified Code(s): L03.115 - Cellulitis of right lower limb (2) Diastolic dysfunction Assessment/Plan: Cont lasix Code(s): I51.89 - OTHER ILL-DEFINED HEART DISEASES (3) Hypothyroidism Assessment/Plan: Cont levothyroxine Code(s): E03.9 - HYPOTHYROIDISM, UNSPECIFIED Qualifiers: Hypothyroidism type: unspecified Qualified Code(s): E03.9 - Hypothyroidism , unspecified (4) Seizure disorder Assessment/Plan: Cont keppra/depakote Code(s): G40.909 - EPILEPSY, UNSP, NOT INTRACTABLE, WITHOUT STATUS EPILEPTICUS
[2018-11-09] MEDS: DIVALPROEX NA *ER* EXTEND REL 500 MG TABLET.SA (FP) PO SCH (06:02)
--- NOTE | 2018-11-09 07:02 | PN ---
Progress Note (short form) - Note Progress Note: Chief Complaint: History of Present Illness: Seen and examined . - Current Medication List Current Medications Acetaminophen (Tylenol -) 650 mg PO Q6H PRN PRN Reason: FEVER Last Admin: 11/07/18 10:21 Dose: 650 mg Divalproex Sodium (Depakote *Er* -) 1,000 mg PO AM [facility] Last Admin: 11/09/18 06:02 Dose: 1,000 mg Divalproex Sodium (Depakote *Er* -) 750 mg PO HS [facility] Last Admin: 11/08/18 21:53 Dose: 750 mg Furosemide (Lasix -) 20 mg PO DAILY [facility] Last Admin: 11/08/18 10:51 Dose: 20 mg Heparin Sodium (Porcine) (Heparin -) 5,000 unit SQ BID [facility] Last Admin: 11/08/18 21:52 Dose: 5,000 unit Vancomycin HCl 1,500 mg/ (Dextrose) 500 mls @ 250 mls/hr IVPB Q24H [facility]; Protocol Last Admin: 11/08/18 11:16 Dose: 250 mls/hr Levetiracetam (Keppra -) 1,500 mg PO BID [facility] Last Admin: 11/08/18 21:52 Dose: 1,500 mg Levothyroxine Sodium (Synthroid -) 100 mcg PO DAILY [facility] Last Admin: 11/08/18 10:51 Dose: 100 mcg Review of Systems Cardiovascular: As noted above Respiratory: denies Cough or Sputum Production Gastrointestinal: denies: Nausea, Vomiting, Diarrhea, Constipation or Abdominal Discomfort Musculoskeletal: Degenerate Joint Disease - Objective Vital Signs: Last Vital Signs Temp Pulse Resp BP Pulse Ox 98 F 80 20 136/58 L 99 11/08/18 22:00 11/08/18 22:00 11/08/18 22:00 11/08/18 22:00 11/08/18 21:00 Intake & Output 11/06/18 11/07/18 11/08/18 11/09/18 23:59 23:59 23:59 23:59 Intake Total 1465 2030 500 Balance 1465 2030 500 Weight 164 lb 164 lb Constitutional: No Distress, Calm Neck: Supple Negative JVD No Bruit Respiratory: Diminished Breath Sounds at the Bases Cardiovascular: S1 S2 Irregularly Irregular Gastrointestinal: Soft Benign Normal Bowel Sounds Ext: Trace Edema Labs: CBC, BMP 11/08/18 07:00 11/08/18 07:00 Hepatic Panel Total Bilirubin 0.6 mg/dL (0.2-1) 11/08/18 07:00 AST 8 U/L (15-37) L 11/08/18 07:00 ALT 8 U/L (13-61) L 11/08/18 07:00 Alkaline Phosphatase 50 U/L (45-117) 11/08/18 07:00 Albumin 2.6 g/dl (3.4-5.0) L 11/08/18 07:00 ASSESSMENT: 1. PLAN: 1. Salima Watts M.D.
--- NOTE | 2018-11-09 09:44 | PN ---
Progress Note, Physician History of Present Illness: 68 year old female with a past medical history of CHF, chronic lower extremity edema, and seizure disorder here today from assisted living for evaluation of worsening right lower extremity edema. The patients sister reports that she has had worsening right lower extremity edema with warmth, redness, and weakness since tuesday (11/04/18). Sister states that the left leg is at baseline. - Current Medication List Current Medications: Active Medications Acetaminophen (Tylenol -) 650 mg PO Q6H PRN PRN Reason: FEVER Last Admin: 11/07/18 10:21 Dose: 650 mg Divalproex Sodium (Depakote *Er* -) 1,000 mg PO AM [facility] Last Admin: 11/09/18 06:02 Dose: 1,000 mg Divalproex Sodium (Depakote *Er* -) 750 mg PO HS [facility] Last Admin: 11/08/18 21:53 Dose: 750 mg Furosemide (Lasix -) 20 mg PO DAILY [facility] Last Admin: 11/08/18 10:51 Dose: 20 mg Heparin Sodium (Porcine) (Heparin -) 5,000 unit SQ BID [facility] Last Admin: 11/08/18 21:52 Dose: 5,000 unit Vancomycin HCl 1,500 mg/ (Dextrose) 500 mls @ 250 mls/hr IVPB Q24H [facility]; Protocol Last Admin: 11/08/18 11:16 Dose: 250 mls/hr Levetiracetam (Keppra -) 1,500 mg PO BID [facility] Last Admin: 11/08/18 21:52 Dose: 1,500 mg Levothyroxine Sodium (Synthroid -) 100 mcg PO DAILY [facility] Last Admin: 11/08/18 10:51 Dose: 100 mcg - Objective Vital Signs: Vital Signs Temperature 98.8 F 11/09/18 06:00 Pulse Rate 79 11/09/18 06:00 Respiratory Rate 20 11/09/18 06:00 Blood Pressure 135/61 11/09/18 06:00 O2 Sat by Pulse Oximetry (%) 99 11/08/18 21:00 Constitutional: Yes: Well Nourished, No Distress, Calm Eyes: Yes: WNL, Conjunctiva Clear, EOM Intact HENT: Yes: WNL, Atraumatic, Normocephalic Neck: Yes: WNL, Supple, Trachea Midline Cardiovascular: Yes: WNL, Regular Rate and Rhythm, Bradycardia Respiratory: Yes: WNL, Regular, CTA Bilaterally, Diminished (at bases) Gastrointestinal: Yes: WNL, Normal Bowel Sounds, Soft ...Rectal Exam: Yes: Deferred Genitourinary: Yes: WNL Musculoskeletal: Yes: Muscle Weakness Extremities: Yes: Calf Tenderness, Erythema, Other (to LE) Edema: Yes Edema: LLE: 4+, RLE: 4+ Integumentary: Yes: Erythema, Venous Stasis Changes Neurological: Yes: Alert, Unsteady Gait ...Motor Strength: WNL Psychiatric: Yes: WNL, Alert, Oriented Labs: CBC, BMP 11/08/18 07:00 11/08/18 07:00 Problem List - Problems (1) Cellulitis Assessment/Plan: appreciate ID consultation continue IV abx Code(s): L03.90 - CELLULITIS, UNSPECIFIED Qualifiers: Site of cellulitis: extremity Site of cellulitis of extremity: lower extremity Laterality: right Qualified Code(s): L03.115 - Cellulitis of right lower limb (2) Thrombosis of right saphenous vein Assessment/Plan: continue heparin sq Code(s): I82.811 - EMBOLISM AND THROMBOSIS OF SUPERFICIAL VEINS OF R LOW EXTREM (3) CHF (congestive heart failure) Assessment/Plan: continue lasix Code(s): I50.9 - HEART FAILURE, UNSPECIFIED (4) Hypothyroidism Assessment/Plan: continue synthroid Code(s): E03.9 - HYPOTHYROIDISM, UNSPECIFIED Qualifiers: Hypothyroidism type: unspecified Qualified Code(s): E03.9 - Hypothyroidism , unspecified (5) Seizure disorder Assessment/Plan: continue depakote Code(s): G40.909 - EPILEPSY, UNSP, NOT INTRACTABLE, WITHOUT STATUS EPILEPTICUS Impression/Plan Impression/Plan: Problem List - Problems (1) Cellulitis Assessment/Plan: Cont IV antibxs Elevation of legs Code(s): L03.90 - CELLULITIS, UNSPECIFIED Qualifiers: Site of cellulitis: extremity Site of cellulitis of extremity: lower extremity Laterality: right Qualified Code(s): L03.115 - Cellulitis of right lower limb (2) Diastolic dysfunction Assessment/Plan: Cont lasix Code(s): I51.89 - OTHER ILL-DEFINED HEART DISEASES (3) Hypothyroidism Assessment/Plan: Cont levothyroxine Code(s): E03.9 - HYPOTHYROIDISM, UNSPECIFIED Qualifiers: Hypothyroidism type: unspecified Qualified Code(s): E03.9 - Hypothyroidism , unspecified (4) Seizure disorder Assessment/Plan: Cont keppra/depakote Code(s): G40.909 - EPILEPSY, UNSP, NOT INTRACTABLE, WITHOUT STATUS EPILEPTICUS Visit type - Emergency Visit Emergency Visit: Yes ED Registration Date: 11/06/18 Care time: The patient presented to the Emergency Department on the above date and was hospitalized for further evaluation of their emergent condition. - New Patient This patient is new to me today: Yes Date on this admission: 11/09/18 - Critical Care Critical Care patient: No - Discharge Referral Referred to [facility] No
[2018-11-09 10:11] LABS: BASO % 0.1 % (0-2.0); HEMATOCRIT 35.4 % (32.4-45.2); HEMOGLOBIN 12.3 GM/dL (10.7-15.3); LYMPH % 41.8 % (8-40); MCH 33.6 pg (25.7-33.7); MCHC 34.8 g/dl (32.0-36.0); MEAN CELL VOLUME 96.5 fl (80-96); MEAN PLT VOLUME 6.5 fl (7.5-11.1); MONO % 14.3 % (3.8-10.2); NEUT % 43.8 % (42.8-82.8); PLATELET COUNT 190 K/MM3 (134-434); RBC 3.66 M/mm3 (3.60-5.2); RDW 13.2 % (11.6-15.6); WHITE BLOOD COUNT 7.2 K/mm3 (4.0-10.0)
[2018-11-09 10:39] LABS: ALBUMIN 2.7 g/dl (3.4-5.0); BILIRUBIN,TOTAL 0.8 mg/dL (0.2-1); BLOOD UREA NITROGEN 22.8 mg/dL (7-18); CALCIUM 8.4 mg/dL (8.5-10.1); CREATININE 0.8 mg/dL (0.55-1.3); MAGNESIUM 2.3 mg/dL (1.8-2.4); POTASSIUM 3.6 mmol/L (3.5-5.1)
[2018-11-09] MEDS: HEPARIN NA (PORCINE) 5,000 UNITS/ML 1ML VIAL SQ SCH ×2 (10:49→21:56)
[2018-11-09] MEDS: levETIRAcetam 500 MG TABLET (FP) PO SCH ×2 (10:50→21:56)
[2018-11-09] MEDS: LEVOTHYROXINE NA 100 MCG TABLET (FP) PO SCH (10:50)
[2018-11-09] MEDS: FUROSEMIDE 20 MG TABLET (FP) PO SCH (10:50)
--- NOTE | 2018-11-09 12:23 | PN ---
Progress Note, Physician History of Present Illness: leg still very tender and swollen cellulitis has improved marginally - Current Medication List Current Medications: Active Medications Acetaminophen (Tylenol -) 650 mg PO Q6H PRN PRN Reason: FEVER Last Admin: 11/07/18 10:21 Dose: 650 mg Divalproex Sodium (Depakote *Er* -) 1,000 mg PO AM [facility] Last Admin: 11/09/18 06:02 Dose: 1,000 mg Divalproex Sodium (Depakote *Er* -) 750 mg PO HS [facility] Last Admin: 11/08/18 21:53 Dose: 750 mg Furosemide (Lasix -) 20 mg PO DAILY [facility] Last Admin: 11/09/18 10:50 Dose: 20 mg Heparin Sodium (Porcine) (Heparin -) 5,000 unit SQ BID [facility] Last Admin: 11/09/18 10:49 Dose: 5,000 unit Vancomycin HCl 1,500 mg/ (Dextrose) 500 mls @ 250 mls/hr IVPB Q24H [facility]; Protocol Last Admin: 11/08/18 11:16 Dose: 250 mls/hr Levetiracetam (Keppra -) 1,500 mg PO BID [facility] Last Admin: 11/09/18 10:50 Dose: 1,500 mg Levothyroxine Sodium (Synthroid -) 100 mcg PO DAILY [facility] Last Admin: 11/09/18 10:50 Dose: 100 mcg - Objective Vital Signs: Vital Signs Temperature 98.8 F 11/09/18 06:00 Pulse Rate 79 11/09/18 06:00 Respiratory Rate 20 11/09/18 06:00 Blood Pressure 135/61 11/09/18 06:00 O2 Sat by Pulse Oximetry (%) 99 11/08/18 21:00 Constitutional: Yes: Calm, Mild Distress Cardiovascular: Yes: Regular Rate and Rhythm Respiratory: Yes: Regular, CTA Bilaterally Gastrointestinal: Yes: Normal Bowel Sounds, Soft Musculoskeletal: Yes: Other Extremities: Yes: Erythema (rt lower ext), Other Neurological: Yes: Alert, Other Psychiatric: Yes: Alert, Other Labs: CBC, BMP 11/09/18 09:14 11/09/18 09:14 Assessment/Plan Problem List - Problems (1) Cellulitis Code(s): L03.90 - CELLULITIS, UNSPECIFIED Qualifiers: Site of cellulitis: extremity Site of cellulitis of extremity: lower extremity Laterality: right Qualified Code(s): L03.115 - Cellulitis of right lower limb (2) Thrombosis of right saphenous vein Code(s): I82.811 - EMBOLISM AND THROMBOSIS OF SUPERFICIAL VEINS OF R LOW EXTREM (3) CHF (congestive heart failure) Code(s): I50.9 - HEART FAILURE, UNSPECIFIED (4) Hypothyroidism Code(s): E03.9 - HYPOTHYROIDISM, UNSPECIFIED (5) Seizure disorder Code(s): G40.909 - EPILEPSY, UNSP, NOT INTRACTABLE, WITHOUT STATUS EPILEPTICUS plan continue abx elevation of the leg patient will need abx for couple of days close watch
[2018-11-09] MEDS: VANCOMYCIN HCL 1,500 MG in DEXTROSE 5%-WATER - 500 ML IVPB SCH (14:36)
[2018-11-09] MEDS ORDERED: PT OWN MED DRAWER 7, Y5N ONE (21:49)
[2018-11-09] MEDS: DIVALPROEX NA *ER* EXTEND REL 250 MG TABLET.SA PO SCH (21:56)
[2018-11-10] MEDS ORDERED: PT OWN MED DRAWER 7, Y5N ONE ×3 (06:04→17:13)
[2018-11-10] MEDS: DIVALPROEX NA *ER* EXTEND REL 500 MG TABLET.SA (FP) PO SCH (06:24)
[2018-11-10 06:55] LABS: BASO % 0.2 % (0-2.0); EOS % 0.1 % (0-4.5); HEMATOCRIT 34.5 % (32.4-45.2); HEMOGLOBIN 11.9 GM/dL (10.7-15.3); LYMPH % 40.4 % (8-40); MCH 33.7 pg (25.7-33.7); MCHC 34.5 g/dl (32.0-36.0); MEAN CELL VOLUME 97.7 fl (80-96); MEAN PLT VOLUME 6.6 fl (7.5-11.1); MONO % 14.6 % (3.8-10.2); NEUT % 44.7 % (42.8-82.8); PLATELET COUNT 200 K/MM3 (134-434); RBC 3.53 M/mm3 (3.60-5.2); RDW 12.9 % (11.6-15.6); WHITE BLOOD COUNT 7.7 K/mm3 (4.0-10.0)
[2018-11-10 07:22] LABS: ALBUMIN 2.5 g/dl (3.4-5.0); BILIRUBIN,TOTAL 0.5 mg/dL (0.2-1); BLOOD UREA NITROGEN 22.6 mg/dL (7-18); CALCIUM 8.4 mg/dL (8.5-10.1); CREATININE 0.7 mg/dL (0.55-1.3); MAGNESIUM 2.5 mg/dL (1.8-2.4); TOT PROT 5.8 g/dl (6.4-8.2)
--- NOTE | 2018-11-10 09:38 | PN ---
Progress Note, Physician History of Present Illness: RLE edema with cellulitis and tenderness. Denies chest pain or dyspnea. - Current Medication List Current Medications: Active Medications Acetaminophen (Tylenol -) 650 mg PO Q6H PRN PRN Reason: FEVER Last Admin: 11/07/18 10:21 Dose: 650 mg Divalproex Sodium (Depakote *Er* -) 1,000 mg PO AM [facility] Last Admin: 11/10/18 06:24 Dose: 1,000 mg Divalproex Sodium (Depakote *Er* -) 750 mg PO HS [facility] Last Admin: 11/09/18 21:56 Dose: 750 mg Furosemide (Lasix -) 20 mg PO DAILY [facility] Last Admin: 11/09/18 10:50 Dose: 20 mg Heparin Sodium (Porcine) (Heparin -) 5,000 unit SQ BID [facility] Last Admin: 11/09/18 21:56 Dose: 5,000 unit Vancomycin HCl 1,500 mg/ (Dextrose) 500 mls @ 250 mls/hr IVPB Q24H [facility]; Protocol Last Admin: 11/09/18 14:36 Dose: 250 mls/hr Levetiracetam (Keppra -) 1,500 mg PO BID [facility] Last Admin: 11/09/18 21:56 Dose: 1,500 mg Levothyroxine Sodium (Synthroid -) 100 mcg PO DAILY [facility] Last Admin: 11/09/18 10:50 Dose: 100 mcg - Objective Vital Signs: Vital Signs Temperature 98.2 F 11/10/18 06:00 Pulse Rate 80 11/10/18 06:00 Respiratory Rate 20 11/09/18 20:09 Blood Pressure 143/65 11/10/18 06:00 O2 Sat by Pulse Oximetry (%) 97 11/09/18 21:00 Constitutional: Yes: No Distress, Calm Neck: Yes: Supple Cardiovascular: Yes: Regular Rate and Rhythm Respiratory: Yes: Regular, Diminished Gastrointestinal: Yes: Normal Bowel Sounds, Soft Extremities: Yes: Erythema Edema: Yes Edema: LLE: Trace, RLE: Trace Integumentary: Yes: Venous Stasis Changes Labs: CBC, BMP 11/10/18 06:22 11/10/18 06:22 Problem List - Problems (1) Diastolic dysfunction Code(s): I51.89 - OTHER ILL-DEFINED HEART DISEASES (2) Cellulitis Code(s): L03.90 - CELLULITIS, UNSPECIFIED Qualifiers: Site of cellulitis: extremity Site of cellulitis of extremity: lower extremity Laterality: right Qualified Code(s): L03.115 - Cellulitis of right lower limb (3) Thrombosis of right saphenous vein Code(s): I82.811 - EMBOLISM AND THROMBOSIS OF SUPERFICIAL VEINS OF R LOW EXTREM (4) Hypothyroidism Code(s): E03.9 - HYPOTHYROIDISM, UNSPECIFIED Qualifiers: Hypothyroidism type: unspecified Qualified Code(s): E03.9 - Hypothyroidism , unspecified (5) Seizure disorder Code(s): G40.909 - EPILEPSY, UNSP, NOT INTRACTABLE, WITHOUT STATUS EPILEPTICUS Assessment/Plan 11/07/2018 Echo: Normal LV and RV size and fxn, EF 70%, normal atrial sizes, mild MR, TR Venous Duplex: (11/06/18): There is no evidence of DVT in the right lower ext. Right greater saphenous vein thrombosis involving it prox/mid and distal portion. 1. LE swelling, DVT ruled out, overlying cellulitis RLE 2. Diastolic dysfunction 3. HTN 4. Hypothyroidism 5. Sz d/o 6. Right superficial greater saphenous vein thrombosis PLAN: 1. Antibiotic coverage per ID, leg elevation 2. Lasix 20 qd 3. DVT prophylaxis
[2018-11-10] MEDS: ACETAMINOPHEN 325 MG TABLET (FP) PO PRN (10:12)
[2018-11-10] MEDS: HEPARIN NA (PORCINE) 5,000 UNITS/ML 1ML VIAL SQ SCH ×2 (10:12→21:14)
[2018-11-10] MEDS: levETIRAcetam 500 MG TABLET (FP) PO SCH ×2 (10:13→21:14)
[2018-11-10] MEDS: LEVOTHYROXINE NA 100 MCG TABLET (FP) PO SCH (10:13)
[2018-11-10] MEDS: FUROSEMIDE 20 MG TABLET (FP) PO SCH (10:13)
--- NOTE | 2018-11-10 11:35 | PN ---
Progress Note, Physician History of Present Illness: leg improving still leg swollen - Current Medication List Current Medications: Active Medications Acetaminophen (Tylenol -) 650 mg PO Q6H PRN PRN Reason: FEVER Last Admin: 11/10/18 10:12 Dose: 650 mg Divalproex Sodium (Depakote *Er* -) 1,000 mg PO AM [facility] Last Admin: 11/10/18 06:24 Dose: 1,000 mg Divalproex Sodium (Depakote *Er* -) 750 mg PO HS [facility] Last Admin: 11/09/18 21:56 Dose: 750 mg Furosemide (Lasix -) 20 mg PO DAILY [facility] Last Admin: 11/10/18 10:13 Dose: 20 mg Heparin Sodium (Porcine) (Heparin -) 5,000 unit SQ BID [facility] Last Admin: 11/10/18 10:12 Dose: 5,000 unit Vancomycin HCl 1,500 mg/ (Dextrose) 500 mls @ 250 mls/hr IVPB Q24H [facility]; Protocol Last Admin: 11/09/18 14:36 Dose: 250 mls/hr Levetiracetam (Keppra -) 1,500 mg PO BID [facility] Last Admin: 11/10/18 10:13 Dose: 1,500 mg Levothyroxine Sodium (Synthroid -) 100 mcg PO DAILY [facility] Last Admin: 11/10/18 10:13 Dose: 100 mcg - Objective Vital Signs: Vital Signs Temperature 98.0 F 11/10/18 10:07 Pulse Rate 84 11/10/18 10:07 Respiratory Rate 18 11/10/18 10:07 Blood Pressure 145/60 11/10/18 10:07 O2 Sat by Pulse Oximetry (%) 97 11/09/18 21:00 Constitutional: Yes: No Distress, Calm, Obese Cardiovascular: Yes: Regular Rate and Rhythm Respiratory: Yes: Regular, CTA Bilaterally Gastrointestinal: Yes: Normal Bowel Sounds, Soft Musculoskeletal: Yes: Other Extremities: Yes: Other Labs: CBC, BMP 11/10/18 06:22 11/10/18 06:22 Assessment/Plan Problem List - Problems (1) Cellulitis Code(s): L03.90 - CELLULITIS, UNSPECIFIED Qualifiers: Site of cellulitis: extremity Site of cellulitis of extremity: lower extremity Laterality: right Qualified Code(s): L03.115 - Cellulitis of right lower limb (2) Thrombosis of right saphenous vein Code(s): I82.811 - EMBOLISM AND THROMBOSIS OF SUPERFICIAL VEINS OF R LOW EXTREM (3) CHF (congestive heart failure) Code(s): I50.9 - HEART FAILURE, UNSPECIFIED (4) Hypothyroidism Code(s): E03.9 - HYPOTHYROIDISM, UNSPECIFIED (5) Seizure disorder Code(s): G40.909 - EPILEPSY, UNSP, NOT INTRACTABLE, WITHOUT STATUS EPILEPTICUS plan continue abx elevation of the leg patient will need abx for couple of days close watch
[2018-11-10] MEDS: AZTREONAM 1 GM in DEXTROSE 5%-WATER - 50 ML IVPB SCH ×2 (11:45→17:46)
[2018-11-10] MEDS: VANCOMYCIN HCL 1,500 MG in DEXTROSE 5%-WATER - 500 ML IVPB SCH (12:15)
[2018-11-10] MEDS ORDERED: AZTREONAM 1 GM VIAL (RESTRICTED TO ID) ONE ×2 (13:35→17:42)
[2018-11-10] MEDS ORDERED: DEXTROSE 5%-WATER - 50 ML IVPB ONE ×2 (13:35→17:42)
[2018-11-10] MEDS: DIVALPROEX NA *ER* EXTEND REL 250 MG TABLET.SA PO SCH (21:15)
--- NOTE | 2018-11-10 22:57 | PN ---
Progress Note, Physician History of Present Illness: No new complaints - Current Medication List Current Medications: Active Medications Acetaminophen (Tylenol -) 650 mg PO Q6H PRN PRN Reason: FEVER Last Admin: 11/10/18 10:12 Dose: 650 mg Divalproex Sodium (Depakote *Er* -) 1,000 mg PO AM [facility] [place] Last Admin: 11/10/18 06:24 Dose: 1,000 mg Divalproex Sodium (Depakote *Er* -) 750 mg PO HS [facility] [place] Last Admin: 11/10/18 21:15 Dose: 750 mg Furosemide (Lasix -) 20 mg PO DAILY [facility] [place] Last Admin: 11/10/18 10:13 Dose: 20 mg Heparin Sodium (Porcine) (Heparin -) 5,000 unit SQ BID [facility] [place] Last Admin: 11/10/18 21:14 Dose: 5,000 unit Vancomycin HCl 1,500 mg/ (Dextrose) 500 mls @ 250 mls/hr IVPB Q24H [facility]; Protocol Last Admin: 11/10/18 12:15 Dose: 250 mls/hr Aztreonam 1 gm/ Dextrose 50 mls @ 100 mls/hr IVPB Q8H-IV [facility]; Protocol Last Admin: 11/10/18 17:46 Dose: 100 mls/hr Levetiracetam (Keppra -) 1,500 mg PO BID [facility] [place] Last Admin: 11/10/18 21:14 Dose: 1,500 mg Levothyroxine Sodium (Synthroid -) 100 mcg PO DAILY [facility] [place] Last Admin: 11/10/18 10:13 Dose: 100 mcg - Objective Vital Signs: Vital Signs Temperature 98.0 F 11/10/18 10:07 Pulse Rate 84 11/10/18 10:07 Respiratory Rate 18 11/10/18 10:07 Blood Pressure 145/60 11/10/18 10:07 O2 Sat by Pulse Oximetry (%) 97 11/09/18 21:00 Neck: Yes: WNL, Supple Cardiovascular: Yes: WNL, Regular Rate and Rhythm Respiratory: Yes: WNL, Regular, CTA Bilaterally Gastrointestinal: Yes: WNL, Normal Bowel Sounds, Soft Extremities: Yes: Other (chronic venous stasis lower extremities (+) erythema) Edema: Yes Labs: CBC, BMP 11/10/18 06:22 11/10/18 06:22 Problem List - Problems (1) Cellulitis Assessment/Plan: Cont IV antibxs Elevation of legs Code(s): L03.90 - CELLULITIS, UNSPECIFIED Qualifiers: Site of cellulitis: extremity Site of cellulitis of extremity: lower extremity Laterality: right Qualified Code(s): L03.115 - Cellulitis of right lower limb (2) Diastolic dysfunction Assessment/Plan: Cont lasix Code(s): I51.89 - OTHER ILL-DEFINED HEART DISEASES (3) Hypothyroidism Assessment/Plan: Cont levothyroxine Code(s): E03.9 - HYPOTHYROIDISM, UNSPECIFIED Qualifiers: Hypothyroidism type: unspecified Qualified Code(s): E03.9 - Hypothyroidism , unspecified (4) Seizure disorder Assessment/Plan: Cont keppra/depakote Code(s): G40.909 - EPILEPSY, UNSP, NOT INTRACTABLE, WITHOUT STATUS EPILEPTICUS
[2018-11-11] MEDS ORDERED: DEXTROSE 5%-WATER - 50 ML IVPB ONE ×3 (01:50→16:55)
[2018-11-11] MEDS ORDERED: AZTREONAM 1 GM VIAL (RESTRICTED TO ID) ONE ×3 (01:50→16:55)
[2018-11-11] MEDS: AZTREONAM 1 GM in DEXTROSE 5%-WATER - 50 ML IVPB SCH ×3 (01:53→17:04)
[2018-11-11] MEDS: DIVALPROEX NA *ER* EXTEND REL 500 MG TABLET.SA (FP) PO SCH (06:10)
--- NOTE | 2018-11-11 07:11 | PN ---
Progress Note (short form) - Note Progress Note: Chief Complaint: Events noted, note reviewed, denies any chest pain or dyspnea History of Present Illness: Seen and examined. Events noted, note reviewed, denies any chest pain or dyspnea - Current Medication List Current Medications Acetaminophen (Tylenol -) 650 mg PO Q6H PRN PRN Reason: FEVER Last Admin: 11/10/18 10:12 Dose: 650 mg Divalproex Sodium (Depakote *Er* -) 1,000 mg PO AM [facility] Last Admin: 11/11/18 06:10 Dose: 1,000 mg Divalproex Sodium (Depakote *Er* -) 750 mg PO HS [facility] Last Admin: 11/10/18 21:15 Dose: 750 mg Furosemide (Lasix -) 20 mg PO DAILY [facility] Last Admin: 11/11/18 10:31 Dose: 20 mg Heparin Sodium (Porcine) (Heparin -) 5,000 unit SQ BID [facility] Last Admin: 11/11/18 10:31 Dose: 5,000 unit Vancomycin HCl 1,500 mg/ (Dextrose) 500 mls @ 250 mls/hr IVPB Q24H [facility]; Protocol Last Admin: 11/10/18 12:15 Dose: 250 mls/hr Aztreonam 1 gm/ Dextrose 50 mls @ 100 mls/hr IVPB Q8H-IV [facility]; Protocol Last Admin: 11/11/18 10:29 Dose: 100 mls/hr Levetiracetam (Keppra -) 1,500 mg PO BID [facility] Last Admin: 11/11/18 10:31 Dose: 1,500 mg Levothyroxine Sodium (Synthroid -) 100 mcg PO DAILY [facility] Last Admin: 11/11/18 10:31 Dose: 100 mcg - Objective Vital Signs: Last Vital Signs Temp Pulse Resp BP Pulse Ox 98.2 F 81 20 139/63 97 11/11/18 06:17 11/11/18 06:17 11/11/18 06:17 11/11/18 06:17 11/10/18 21:00 Intake & Output 11/08/18 11/09/18 11/10/18 11/11/18 23:59 23:59 23:59 23:59 Intake Total 2029 1550 1040 350 Balance 2029 1550 1040 350 Constitutional: No Distress, Calm Neck: Supple Negative JVD No Bruit Respiratory: Diminished Breath Sounds at the Bases Cardiovascular: S1 S2 Regular Rate Rhythm Gastrointestinal: Soft Benign Normal Bowel Sounds Ext: Edema Redness Bilateral Labs: CBC, BMP 11/11/18 06:30 11/11/18 06:30 Hepatic Panel Total Bilirubin 0.5 mg/dL (0.2-1) 11/10/18 06:22 AST 13 U/L (15-37) L 11/10/18 06:22 ALT 9 U/L (13-61) L 11/10/18 06:22 Alkaline Phosphatase 51 U/L (45-117) 11/10/18 06:22 Albumin 2.5 g/dl (3.4-5.0) L 11/10/18 06:22 ASSESSMENT: 1. Lower extremity edema overlying cellulitis 2. Diastolic dysfunction with clinical class 0-I NYHA classification LV failure compensated 3. HTN 4. Seizure disorder 5. Hypothyroidism 6. Right superficial greater saphenous vein thrombosis PLAN: 1. Antibiotic as per primary team 2. Advised leg elevation 3. Continue Lasix and consider Aldactone if edema persists 4. DVT prophylaxis Salima Watts M.D.
[2018-11-11 07:21] LABS: BASO % 0.2 % (0-2.0); HEMOGLOBIN 12.5 GM/dL (10.7-15.3); LYMPH % 33.3 % (8-40); MCH 33.4 pg (25.7-33.7); MCHC 34.8 g/dl (32.0-36.0); MEAN PLT VOLUME 6.1 fl (7.5-11.1); MONO % 15.7 % (3.8-10.2); NEUT % 50.8 % (42.8-82.8); RBC 3.75 M/mm3 (3.60-5.2); RDW 13.2 % (11.6-15.6); WHITE BLOOD COUNT 7.1 K/mm3 (4.0-10.0)
[2018-11-11 07:25] LABS: ALBUMIN 2.7 g/dl (3.4-5.0); BILIRUBIN,TOTAL 0.7 mg/dL (0.2-1); BLOOD UREA NITROGEN 21.6 mg/dL (7-18); CALCIUM 8.7 mg/dL (8.5-10.1); CREATININE 0.7 mg/dL (0.55-1.3); POTASSIUM 3.8 mmol/L (3.5-5.1); TOT PROT 6.2 g/dl (6.4-8.2)
[2018-11-11 08:21] LABS: PLATELET COUNT 205 K/MM3 (134-434)
[2018-11-11] MEDS: HEPARIN NA (PORCINE) 5,000 UNITS/ML 1ML VIAL SQ SCH ×2 (10:31→22:03)
[2018-11-11] MEDS: FUROSEMIDE 20 MG TABLET (FP) PO SCH (10:31)
[2018-11-11] MEDS: levETIRAcetam 500 MG TABLET (FP) PO SCH ×2 (10:31→22:03)
[2018-11-11] MEDS: LEVOTHYROXINE NA 100 MCG TABLET (FP) PO SCH (10:31)
[2018-11-11] MEDS: VANCOMYCIN HCL 1,500 MG in DEXTROSE 5%-WATER - 500 ML IVPB SCH (11:16)
--- NOTE | 2018-11-11 12:53 | PN ---
Progress Note, Physician History of Present Illness: Pt seen and examined, events noted. She c/o pain in RLE, remains afebrile. No other specific complaints. - Current Medication List Current Medications: Active Medications Acetaminophen (Tylenol -) 650 mg PO Q6H PRN PRN Reason: FEVER Last Admin: 11/10/18 10:12 Dose: 650 mg Divalproex Sodium (Depakote *Er* -) 1,000 mg PO AM [facility] Last Admin: 11/11/18 06:10 Dose: 1,000 mg Divalproex Sodium (Depakote *Er* -) 750 mg PO HS [facility] Last Admin: 11/10/18 21:15 Dose: 750 mg Furosemide (Lasix -) 20 mg PO DAILY [facility] Last Admin: 11/11/18 10:31 Dose: 20 mg Heparin Sodium (Porcine) (Heparin -) 5,000 unit SQ BID [facility] Last Admin: 11/11/18 10:31 Dose: 5,000 unit Vancomycin HCl 1,500 mg/ (Dextrose) 500 mls @ 250 mls/hr IVPB Q24H [facility]; Protocol Last Admin: 11/11/18 11:16 Dose: 250 mls/hr Aztreonam 1 gm/ Dextrose 50 mls @ 100 mls/hr IVPB Q8H-IV [facility]; Protocol Last Admin: 11/11/18 10:29 Dose: 100 mls/hr Levetiracetam (Keppra -) 1,500 mg PO BID [facility] Last Admin: 11/11/18 10:31 Dose: 1,500 mg Levothyroxine Sodium (Synthroid -) 100 mcg PO DAILY [facility] Last Admin: 11/11/18 10:31 Dose: 100 mcg - Objective Vital Signs: Vital Signs Temperature 98.2 F 11/11/18 06:17 Pulse Rate 81 11/11/18 06:17 Respiratory Rate 20 11/11/18 06:17 Blood Pressure 139/63 11/11/18 06:17 O2 Sat by Pulse Oximetry (%) 97 11/10/18 21:00 Constitutional: Yes: No Distress, Calm Cardiovascular: Yes: Regular Rate and Rhythm Respiratory: Yes: Regular Gastrointestinal: Yes: Normal Bowel Sounds, Soft Extremities: Yes: Erythema, Shortened, Other (RLE warm/erythematous/ edematous/ TTP, no open draining ulcers noted) Edema: LLE: Trace, RLE: 1+ Neurological: Yes: Alert Labs: CBC, BMP 11/11/18 06:30 11/11/18 06:30 Microbiology 11/06/18 10:15 Blood - Peripheral Venous Blood Culture - Preliminary NO GROWTH OBTAINED AFTER 96 HOURS, INCUBATION TO CONTINUE FOR 1 DAYS. 11/06/18 10:10 Blood - Peripheral Venous Blood Culture - Preliminary NO GROWTH OBTAINED AFTER 96 HOURS, INCUBATION TO CONTINUE FOR 1 DAYS. 11/07/18 06:55 Urine - Urine Clean Catch Urine Culture - Final NO GROWTH OBTAINED - ....Imaging Ultrasound: Report Reviewed Problem List - Problems (1) Cellulitis Code(s): L03.90 - CELLULITIS, UNSPECIFIED Qualifiers: Site of cellulitis: extremity Site of cellulitis of extremity: lower extremity Laterality: right Qualified Code(s): L03.115 - Cellulitis of right lower limb (2) Thrombosis of right saphenous vein Code(s): I82.811 - EMBOLISM AND THROMBOSIS OF SUPERFICIAL VEINS OF R LOW EXTREM (3) CHF (congestive heart failure) Code(s): I50.9 - HEART FAILURE, UNSPECIFIED (4) Hypothyroidism Code(s): E03.9 - HYPOTHYROIDISM, UNSPECIFIED Qualifiers: Hypothyroidism type: unspecified Qualified Code(s): E03.9 - Hypothyroidism , unspecified (5) Seizure disorder Code(s): G40.909 - EPILEPSY, UNSP, NOT INTRACTABLE, WITHOUT STATUS EPILEPTICUS Assessment/Plan RLE cellulitis Saphenous vein thrombosis -- low grade fevers resolved but RLE still significantly tender/warm/ erythematous -- Aztreonam added to Vancomycin empirically -- elevate legs, monitor for improvement
--- NOTE | 2018-11-11 21:52 | PN ---
Progress Note, Physician History of Present Illness: No new complaints - Current Medication List Current Medications: Active Medications Acetaminophen (Tylenol -) 650 mg PO Q6H PRN PRN Reason: FEVER Last Admin: 11/10/18 10:12 Dose: 650 mg Divalproex Sodium (Depakote *Er* -) 1,000 mg PO AM [facility] Last Admin: 11/11/18 06:10 Dose: 1,000 mg Divalproex Sodium (Depakote *Er* -) 750 mg PO HS [facility] Last Admin: 11/10/18 21:15 Dose: 750 mg Furosemide (Lasix -) 20 mg PO DAILY [facility] Last Admin: 11/11/18 10:31 Dose: 20 mg Heparin Sodium (Porcine) (Heparin -) 5,000 unit SQ BID [facility] Last Admin: 11/11/18 10:31 Dose: 5,000 unit Vancomycin HCl 1,500 mg/ (Dextrose) 500 mls @ 250 mls/hr IVPB Q24H [facility]; Protocol Last Admin: 11/11/18 11:16 Dose: 250 mls/hr Aztreonam 1 gm/ Dextrose 50 mls @ 100 mls/hr IVPB Q8H-IV [facility]; Protocol Last Admin: 11/11/18 17:04 Dose: 100 mls/hr Levetiracetam (Keppra -) 1,500 mg PO BID [facility] Last Admin: 11/11/18 10:31 Dose: 1,500 mg Levothyroxine Sodium (Synthroid -) 100 mcg PO DAILY [facility] Last Admin: 11/11/18 10:31 Dose: 100 mcg - Objective Vital Signs: Vital Signs Temperature 99.1 F 11/11/18 14:36 Pulse Rate 84 11/11/18 14:36 Respiratory Rate 20 11/11/18 10:00 Blood Pressure 157/71 11/11/18 14:36 O2 Sat by Pulse Oximetry (%) 97 11/10/18 21:00 Neck: Yes: WNL, Supple Cardiovascular: Yes: WNL, Regular Rate and Rhythm Respiratory: Yes: WNL, Regular, CTA Bilaterally Gastrointestinal: Yes: WNL, Normal Bowel Sounds, Soft Extremities: Yes: Other (Chronic venous stasis (+) erythema lower extremity) Edema: Yes Labs: CBC, BMP 11/11/18 06:30 11/11/18 06:30 Problem List - Problems (1) Cellulitis Assessment/Plan: Cont IV antibxs Elevation of legs Code(s): L03.90 - CELLULITIS, UNSPECIFIED Qualifiers: Site of cellulitis: extremity Site of cellulitis of extremity: lower extremity Laterality: right Qualified Code(s): L03.115 - Cellulitis of right lower limb (2) Diastolic dysfunction Assessment/Plan: Cont lasix Code(s): I51.89 - OTHER ILL-DEFINED HEART DISEASES (3) Hypothyroidism Assessment/Plan: Cont levothyroxine Code(s): E03.9 - HYPOTHYROIDISM, UNSPECIFIED Qualifiers: Hypothyroidism type: unspecified Qualified Code(s): E03.9 - Hypothyroidism , unspecified (4) Seizure disorder Assessment/Plan: Cont keppra/depakote Code(s): G40.909 - EPILEPSY, UNSP, NOT INTRACTABLE, WITHOUT STATUS EPILEPTICUS
[2018-11-11] MEDS: DIVALPROEX NA *ER* EXTEND REL 250 MG TABLET.SA PO SCH (22:03)
[2018-11-12] MEDS ORDERED: AZTREONAM 1 GM VIAL (RESTRICTED TO ID) ONE ×3 (01:50→16:14)
[2018-11-12] MEDS ORDERED: DEXTROSE 5%-WATER - 50 ML IVPB ONE ×3 (01:50→16:14)
[2018-11-12] MEDS: AZTREONAM 1 GM in DEXTROSE 5%-WATER - 50 ML IVPB SCH ×3 (02:07→17:10)
[2018-11-12] MEDS: DIVALPROEX NA *ER* EXTEND REL 500 MG TABLET.SA (FP) PO SCH (06:05)
--- NOTE | 2018-11-12 07:04 | PN ---
Progress Note (short form) - Note Progress Note: Chief Complaint: Events noted, note reviewed, overall no change in status, denies any chest pain or dyspnea History of Present Illness: Seen and examined. Events noted, note reviewed, overall no change in status, denies any chest pain or dyspnea - Current Medication List Current Medications Acetaminophen (Tylenol -) 650 mg PO Q6H PRN PRN Reason: FEVER Last Admin: 11/10/18 10:12 Dose: 650 mg Divalproex Sodium (Depakote *Er* -) 1,000 mg PO AM [facility] Last Admin: 11/12/18 06:05 Dose: 1,000 mg Divalproex Sodium (Depakote *Er* -) 750 mg PO HS [facility] Last Admin: 11/11/18 22:03 Dose: 750 mg Furosemide (Lasix -) 20 mg PO DAILY [facility] Last Admin: 11/11/18 10:31 Dose: 20 mg Heparin Sodium (Porcine) (Heparin -) 5,000 unit SQ BID [facility] Last Admin: 11/11/18 22:03 Dose: 5,000 unit Vancomycin HCl 1,500 mg/ (Dextrose) 500 mls @ 250 mls/hr IVPB Q24H [facility]; Protocol Last Admin: 11/11/18 11:16 Dose: 250 mls/hr Aztreonam 1 gm/ Dextrose 50 mls @ 100 mls/hr IVPB Q8H-IV [facility]; Protocol Last Admin: 11/12/18 02:07 Dose: 100 mls/hr Levetiracetam (Keppra -) 1,500 mg PO BID [facility] Last Admin: 11/11/18 22:03 Dose: 1,500 mg Levothyroxine Sodium (Synthroid -) 100 mcg PO DAILY [facility] Last Admin: 11/11/18 10:31 Dose: 100 mcg - Objective Vital Signs: Last Vital Signs Temp Pulse Resp BP Pulse Ox 98.1 F 78 19 143/72 97 11/12/18 06:10 11/12/18 06:10 11/12/18 06:10 11/12/18 06:10 11/10/18 21:00 Intake & Output 11/09/18 11/10/18 11/11/18 11/12/18 23:59 23:59 23:59 23:59 Intake Total 1550 1040 1365 600 Balance 1550 1040 1365 600 Constitutional: No Distress, Calm Neck: Supple Negative JVD No Bruit Respiratory: Diminished Breath Sounds at the Bases Cardiovascular: S1 S2 Regular Rate Rhythm Gastrointestinal: Soft Benign Normal Bowel Sounds Ext: Edema Bilateral Labs: CBC, BMP 11/11/18 06:30 11/11/18 06:30 Hepatic Panel Total Bilirubin 0.7 mg/dL (0.2-1) 11/11/18 06:30 AST 12 U/L (15-37) L 11/11/18 06:30 ALT 9 U/L (13-61) L 11/11/18 06:30 Alkaline Phosphatase 55 U/L (45-117) 11/11/18 06:30 Albumin 2.7 g/dl (3.4-5.0) L 11/11/18 06:30 ASSESSMENT: 1. Lower extremity edema overlying cellulitis, resolving 2. Diastolic dysfunction with clinical class 0-I NYHA classification LV failure compensated 3. HTN 4. Seizure disorder 5. Hypothyroidism 6. Right superficial greater saphenous vein thrombosis PLAN: 1. Antibiotic as per primary team 2. Advised leg elevation 3. Add ACEI or ARBS unless contraindicated 4. Continue Lasix and may consider Aldactone if edema persists 5. DVT prophylaxis Salima Watts M.D.
[2018-11-12] MEDS: HEPARIN NA (PORCINE) 5,000 UNITS/ML 1ML VIAL SQ SCH ×2 (09:46→21:38)
[2018-11-12] MEDS: levETIRAcetam 500 MG TABLET (FP) PO SCH ×2 (09:47→21:37)
[2018-11-12] MEDS: FUROSEMIDE 20 MG TABLET (FP) PO SCH (09:47)
[2018-11-12] MEDS: LEVOTHYROXINE NA 100 MCG TABLET (FP) PO SCH (09:47)
[2018-11-12] MEDS: VANCOMYCIN HCL 1,500 MG in DEXTROSE 5%-WATER - 500 ML IVPB SCH (11:39)
--- NOTE | 2018-11-12 15:26 | PN ---
Progress Note, Physician History of Present Illness: Pt is alert, remains afebrile. States she is starting to have less pain in RLE. No other specific complaints. - Current Medication List Current Medications: Active Medications Acetaminophen (Tylenol -) 650 mg PO Q6H PRN PRN Reason: FEVER Last Admin: 11/10/18 10:12 Dose: 650 mg Divalproex Sodium (Depakote *Er* -) 1,000 mg PO AM [facility] Last Admin: 11/12/18 06:05 Dose: 1,000 mg Divalproex Sodium (Depakote *Er* -) 750 mg PO HS [facility] Last Admin: 11/11/18 22:03 Dose: 750 mg Furosemide (Lasix -) 20 mg PO DAILY [facility] Last Admin: 11/12/18 09:47 Dose: 20 mg Heparin Sodium (Porcine) (Heparin -) 5,000 unit SQ BID [facility] Last Admin: 11/12/18 09:46 Dose: 5,000 unit Vancomycin HCl 1,500 mg/ (Dextrose) 500 mls @ 250 mls/hr IVPB Q24H [facility]; Protocol Last Admin: 11/12/18 11:39 Dose: 250 mls/hr Aztreonam 1 gm/ Dextrose 50 mls @ 100 mls/hr IVPB Q8H-IV [facility]; Protocol Last Admin: 11/12/18 09:39 Dose: 100 mls/hr Levetiracetam (Keppra -) 1,500 mg PO BID [facility] Last Admin: 11/12/18 09:47 Dose: 1,500 mg Levothyroxine Sodium (Synthroid -) 100 mcg PO DAILY [facility] Last Admin: 11/12/18 09:47 Dose: 100 mcg - Objective Vital Signs: Vital Signs Temperature 98.0 F 11/12/18 14:00 Pulse Rate 80 11/12/18 14:00 Respiratory Rate 18 11/12/18 14:00 Blood Pressure 138/39 L 11/12/18 14:00 O2 Sat by Pulse Oximetry (%) 97 11/10/18 21:00 Constitutional: Yes: No Distress, Calm Cardiovascular: Yes: Regular Rate and Rhythm Respiratory: Yes: Regular Gastrointestinal: Yes: Normal Bowel Sounds, Soft Extremities: Yes: Erythema (RLE edema, still with erythema, less pain, no drainage) Neurological: Yes: Alert Labs: CBC, BMP 11/11/18 06:30 07/06/19 06:30 Microbiology 11/06/18 10:15 Blood - Peripheral Venous Blood Culture - Final NO GROWTH AFTER 5 DAYS INCUBATION 11/06/18 10:10 Blood - Peripheral Venous Blood Culture - Final NO GROWTH AFTER 5 DAYS INCUBATION 11/07/18 06:55 Urine - Urine Clean Catch Urine Culture - Final NO GROWTH OBTAINED Problem List - Problems (1) Cellulitis Code(s): L03.90 - CELLULITIS, UNSPECIFIED Qualifiers: Site of cellulitis: extremity Site of cellulitis of extremity: lower extremity Laterality: right Qualified Code(s): L03.115 - Cellulitis of right lower limb (2) Thrombosis of right saphenous vein Code(s): I82.811 - EMBOLISM AND THROMBOSIS OF SUPERFICIAL VEINS OF R LOW EXTREM (3) CHF (congestive heart failure) Code(s): I50.9 - HEART FAILURE, UNSPECIFIED (4) Hypothyroidism Code(s): E03.9 - HYPOTHYROIDISM, UNSPECIFIED Qualifiers: Hypothyroidism type: unspecified Qualified Code(s): E03.9 - Hypothyroidism , unspecified (5) Seizure disorder Code(s): G40.909 - EPILEPSY, UNSP, NOT INTRACTABLE, WITHOUT STATUS EPILEPTICUS Assessment/Plan RLE cellulitis Saphenous vein thrombosis -- fevers resolved but cellulitis has been slow to improve -- continue current antibiotics for now -- elevate legs
[2018-11-12] MEDS ORDERED: PT OWN MED DRAWER 7, Y5N ONE (21:00)
[2018-11-12] MEDS: DIVALPROEX NA *ER* EXTEND REL 250 MG TABLET.SA PO SCH (21:39)
--- NOTE | 2018-11-12 23:21 | PN ---
Progress Note, Physician History of Present Illness: No new complaints - Current Medication List Current Medications: Active Medications Acetaminophen (Tylenol -) 650 mg PO Q6H PRN PRN Reason: FEVER Last Admin: 11/10/18 10:12 Dose: 650 mg Divalproex Sodium (Depakote *Er* -) 1,000 mg PO AM [facility] Last Admin: 11/12/18 06:05 Dose: 1,000 mg Divalproex Sodium (Depakote *Er* -) 750 mg PO HS [facility] Last Admin: 11/12/18 21:39 Dose: 750 mg Furosemide (Lasix -) 20 mg PO DAILY [facility] Last Admin: 11/12/18 09:47 Dose: 20 mg Heparin Sodium (Porcine) (Heparin -) 5,000 unit SQ BID [facility] Last Admin: 11/12/18 21:38 Dose: 5,000 unit Vancomycin HCl 1,500 mg/ (Dextrose) 500 mls @ 250 mls/hr IVPB Q24H [facility]; Protocol Last Admin: 11/12/18 11:39 Dose: 250 mls/hr Aztreonam 1 gm/ Dextrose 50 mls @ 100 mls/hr IVPB Q8H-IV [facility]; Protocol Last Admin: 11/12/18 17:10 Dose: 100 mls/hr Levetiracetam (Keppra -) 1,500 mg PO BID [facility] Last Admin: 11/12/18 21:37 Dose: 1,500 mg Levothyroxine Sodium (Synthroid -) 100 mcg PO DAILY [facility] Last Admin: 11/12/18 09:47 Dose: 100 mcg - Objective Vital Signs: Vital Signs Temperature 97.9 F 11/12/18 22:50 Pulse Rate 85 11/12/18 22:50 Respiratory Rate 20 11/12/18 22:50 Blood Pressure 133/78 11/12/18 22:50 O2 Sat by Pulse Oximetry (%) 97 11/10/18 21:00 HENT: Yes: WNL Neck: Yes: WNL, Supple Cardiovascular: Yes: WNL, Regular Rate and Rhythm Respiratory: Yes: WNL, Regular, CTA Bilaterally Gastrointestinal: Yes: WNL, Normal Bowel Sounds, Soft Extremities: Yes: Other (Chronic venouse stasis b/l lower extremities (+) erythema lower extremity) Edema: Yes Labs: CBC, BMP 11/11/18 06:30 11/11/18 06:30 Problem List - Problems (1) Cellulitis Assessment/Plan: Cont IV antibxs Elevation of legs Code(s): L03.90 - CELLULITIS, UNSPECIFIED Qualifiers: Site of cellulitis: extremity Site of cellulitis of extremity: lower extremity Laterality: right Qualified Code(s): L03.115 - Cellulitis of right lower limb (2) Diastolic dysfunction Assessment/Plan: Cont lasix Code(s): I51.89 - OTHER ILL-DEFINED HEART DISEASES (3) Hypothyroidism Assessment/Plan: Cont levothyroxine Code(s): E03.9 - HYPOTHYROIDISM, UNSPECIFIED Qualifiers: Hypothyroidism type: unspecified Qualified Code(s): E03.9 - Hypothyroidism , unspecified (4) Seizure disorder Assessment/Plan: Cont keppra/depakote Code(s): G40.909 - EPILEPSY, UNSP, NOT INTRACTABLE, WITHOUT STATUS EPILEPTICUS
[2018-11-13] MEDS ORDERED: AZTREONAM 1 GM VIAL (RESTRICTED TO ID) ONE ×3 (01:07→17:23)
[2018-11-13] MEDS ORDERED: DEXTROSE 5%-WATER - 50 ML IVPB ONE ×3 (01:08→17:23)
[2018-11-13] MEDS: AZTREONAM 1 GM in DEXTROSE 5%-WATER - 50 ML IVPB SCH ×3 (02:04→18:32)
[2018-11-13] MEDS ORDERED: PT OWN MED DRAWER 7, Y5N ONE ×4 (05:50→20:42)
[2018-11-13] MEDS: DIVALPROEX NA *ER* EXTEND REL 500 MG TABLET.SA (FP) PO SCH (06:13)
--- NOTE | 2018-11-13 09:29 | PN ---
Progress Note, Physician History of Present Illness: RLE edema with cellulitis, edema and tenderness resolving. Denies chest pain or dyspnea. - Current Medication List Current Medications: Active Medications Acetaminophen (Tylenol -) 650 mg PO Q6H PRN PRN Reason: FEVER Last Admin: 11/10/18 10:12 Dose: 650 mg Divalproex Sodium (Depakote *Er* -) 1,000 mg PO AM [facility] Last Admin: 11/13/18 06:13 Dose: 1,000 mg Divalproex Sodium (Depakote *Er* -) 750 mg PO HS [facility] Last Admin: 11/12/18 21:39 Dose: 750 mg Furosemide (Lasix -) 20 mg PO DAILY [facility] Last Admin: 11/12/18 09:47 Dose: 20 mg Heparin Sodium (Porcine) (Heparin -) 5,000 unit SQ BID [facility] Last Admin: 11/12/18 21:38 Dose: 5,000 unit Vancomycin HCl 1,500 mg/ (Dextrose) 500 mls @ 250 mls/hr IVPB Q24H [facility]; Protocol Last Admin: 11/12/18 11:39 Dose: 250 mls/hr Aztreonam 1 gm/ Dextrose 50 mls @ 100 mls/hr IVPB Q8H-IV [facility]; Protocol Last Admin: 11/13/18 02:04 Dose: 100 mls/hr Levetiracetam (Keppra -) 1,500 mg PO BID [facility] Last Admin: 11/12/18 21:37 Dose: 1,500 mg Levothyroxine Sodium (Synthroid -) 100 mcg PO DAILY [facility] Last Admin: 11/12/18 09:47 Dose: 100 mcg - Objective Vital Signs: Vital Signs Temperature 98.7 F 11/13/18 06:00 Pulse Rate 75 11/13/18 06:00 Respiratory Rate 20 11/13/18 06:00 Blood Pressure 135/54 L 11/13/18 06:00 O2 Sat by Pulse Oximetry (%) 98 11/12/18 21:00 Constitutional: Yes: No Distress, Calm Neck: Yes: Supple Cardiovascular: Yes: Regular Rate and Rhythm Respiratory: Yes: Regular, Diminished Gastrointestinal: Yes: Normal Bowel Sounds, Soft Extremities: Yes: Erythema Edema: Yes Edema: LLE: Trace, RLE: Trace Integumentary: Yes: Venous Stasis Changes Labs: CBC, BMP 11/11/18 06:30 11/11/18 06:30 Problem List - Problems (1) Diastolic dysfunction Code(s): I51.89 - OTHER ILL-DEFINED HEART DISEASES (2) Cellulitis Code(s): L03.90 - CELLULITIS, UNSPECIFIED Qualifiers: Site of cellulitis: extremity Site of cellulitis of extremity: lower extremity Laterality: right Qualified Code(s): L03.115 - Cellulitis of right lower limb (3) Thrombosis of right saphenous vein Code(s): I82.811 - EMBOLISM AND THROMBOSIS OF SUPERFICIAL VEINS OF R LOW EXTREM (4) Hypothyroidism Code(s): E03.9 - HYPOTHYROIDISM, UNSPECIFIED Qualifiers: Hypothyroidism type: unspecified Qualified Code(s): E03.9 - Hypothyroidism , unspecified (5) Seizure disorder Code(s): G40.909 - EPILEPSY, UNSP, NOT INTRACTABLE, WITHOUT STATUS EPILEPTICUS Assessment/Plan 11/07/2018 Echo: Normal LV and RV size and fxn, EF 70%, normal atrial sizes, mild MR, TR Venous Duplex: (11/06/18): There is no evidence of DVT in the right lower ext. Right greater saphenous vein thrombosis involving it prox/mid and distal portion. 1. Lower extremity edema overlying cellulitis, resolving 2. Diastolic dysfunction with clinical class 0-I NYHA classification LV failure compensated 3. HTN 4. Seizure disorder 5. Hypothyroidism 6. Right superficial greater saphenous vein thrombosis PLAN: 1. Antibiotic course as per ID 2. Advised leg elevation 3. Add ACEI or ARBS unless contraindicated 4. Continue Lasix 20 qd and may consider Aldactone if edema persists 5. DVT prophylaxis
[2018-11-13] MEDS: LEVOTHYROXINE NA 100 MCG TABLET (FP) PO SCH (10:56)
[2018-11-13] MEDS: FUROSEMIDE 20 MG TABLET (FP) PO SCH (10:56)
[2018-11-13] MEDS: levETIRAcetam 500 MG TABLET (FP) PO SCH ×2 (10:56→21:02)
[2018-11-13] MEDS: HEPARIN NA (PORCINE) 5,000 UNITS/ML 1ML VIAL SQ SCH (10:57)
[2018-11-13] MEDS: VANCOMYCIN HCL 1,500 MG in DEXTROSE 5%-WATER - 500 ML IVPB SCH (12:15)
--- NOTE | 2018-11-13 12:41 | PN ---
Progress Note, Physician History of Present Illness: stable leg improving tenderness has improved - Current Medication List Current Medications: Active Medications Acetaminophen (Tylenol -) 650 mg PO Q6H PRN PRN Reason: FEVER Last Admin: 11/10/18 10:12 Dose: 650 mg Divalproex Sodium (Depakote *Er* -) 1,000 mg PO AM REPLACED BY [facility] Last Admin: 11/13/18 06:13 Dose: 1,000 mg Divalproex Sodium (Depakote *Er* -) 750 mg PO HS [facility] Last Admin: 11/12/18 21:39 Dose: 750 mg Furosemide (Lasix -) 20 mg PO DAILY REPLACED BY [facility] Last Admin: 11/13/18 10:56 Dose: 20 mg Heparin Sodium (Porcine) (Heparin -) 5,000 unit SQ BID [facility] Last Admin: 11/13/18 10:57 Dose: 5,000 unit Vancomycin HCl 1,500 mg/ (Dextrose) 500 mls @ 250 mls/hr IVPB Q24H [facility]; Protocol Last Admin: 11/12/18 11:39 Dose: 250 mls/hr Aztreonam 1 gm/ Dextrose 50 mls @ 100 mls/hr IVPB Q8H-IV [facility]; Protocol Last Admin: 11/13/18 10:57 Dose: 100 mls/hr Levetiracetam (Keppra -) 1,500 mg PO BID REPLACED BY [facility] Last Admin: 11/13/18 10:56 Dose: 1,500 mg Levothyroxine Sodium (Synthroid -) 100 mcg PO DAILY REPLACED BY [facility] Last Admin: 11/13/18 10:56 Dose: 100 mcg - Objective Vital Signs: Vital Signs Temperature 98.7 F 11/13/18 06:00 Pulse Rate 75 11/13/18 06:00 Respiratory Rate 20 11/13/18 06:00 Blood Pressure 135/54 L 11/13/18 06:00 O2 Sat by Pulse Oximetry (%) 98 11/12/18 21:00 Constitutional: Yes: No Distress, Calm Cardiovascular: Yes: Regular Rate and Rhythm Respiratory: Yes: Regular, CTA Bilaterally Gastrointestinal: Yes: Normal Bowel Sounds, Soft Musculoskeletal: Yes: Other Extremities: Yes: Erythema (improved), Other Neurological: Yes: Alert, Other Psychiatric: Yes: Alert, Other Labs: CBC, BMP 11/11/18 06:30 11/11/18 06:30 Assessment/Plan Problem List - Problems (1) Cellulitis Code(s): L03.90 - CELLULITIS, UNSPECIFIED Qualifiers: Site of cellulitis: extremity Site of cellulitis of extremity: lower extremity Laterality: right Qualified Code(s): L03.115 - Cellulitis of right lower limb (2) Thrombosis of right saphenous vein Code(s): I82.811 - EMBOLISM AND THROMBOSIS OF SUPERFICIAL VEINS OF R LOW EXTREM (3) CHF (congestive heart failure) Code(s): I50.9 - HEART FAILURE, UNSPECIFIED (4) Hypothyroidism Code(s): E03.9 - HYPOTHYROIDISM, UNSPECIFIED Qualifiers: Hypothyroidism type: unspecified Qualified Code(s): E03.9 - Hypothyroidism , unspecified (5) Seizure disorder Code(s): G40.909 - EPILEPSY, UNSP, NOT INTRACTABLE, WITHOUT STATUS EPILEPTICUS Assessment/Plan RLE cellulitis Saphenous vein thrombosis -- fevers resolved but cellulitis has been slow to improve -- continue current antibiotics for now -- elevate legs
--- NOTE | 2018-11-13 16:48 | PN ---
Progress Note, Physician - Current Medication List Current Medications: Active Medications Acetaminophen (Tylenol -) 650 mg PO Q6H PRN PRN Reason: FEVER Last Admin: 11/10/18 10:12 Dose: 650 mg Divalproex Sodium (Depakote *Er* -) 1,000 mg PO AM REPLACED BY [facility] Last Admin: 11/13/18 06:13 Dose: 1,000 mg Divalproex Sodium (Depakote *Er* -) 750 mg PO HS REPLACED BY [facility] Last Admin: 11/12/18 21:39 Dose: 750 mg Furosemide (Lasix -) 20 mg PO DAILY REPLACED BY [facility] Last Admin: 11/13/18 10:56 Dose: 20 mg Heparin Sodium (Porcine) (Heparin -) 5,000 unit SQ BID REPLACED BY [facility] Last Admin: 11/13/18 10:57 Dose: 5,000 unit Vancomycin HCl 1,500 mg/ (Dextrose) 500 mls @ 250 mls/hr IVPB Q24H [facility]; Protocol Last Admin: 11/12/18 11:39 Dose: 250 mls/hr Aztreonam 1 gm/ Dextrose 50 mls @ 100 mls/hr IVPB Q8H-IV [facility]; Protocol Last Admin: 11/13/18 10:57 Dose: 100 mls/hr Levetiracetam (Keppra -) 1,500 mg PO BID REPLACED BY [facility] Last Admin: 11/13/18 10:56 Dose: 1,500 mg Levothyroxine Sodium (Synthroid -) 100 mcg PO DAILY REPLACED BY [facility] Last Admin: 11/13/18 10:56 Dose: 100 mcg - Objective Vital Signs: Vital Signs Temperature 98.1 F 11/13/18 15:39 Pulse Rate 79 11/13/18 15:39 Respiratory Rate 18 11/13/18 15:39 Blood Pressure 131/70 11/13/18 15:39 O2 Sat by Pulse Oximetry (%) 98 11/13/18 09:00 Constitutional: Yes: No Distress HENT: Yes: Atraumatic Neck: Yes: Supple Cardiovascular: Yes: Regular Rate and Rhythm Respiratory: Yes: CTA Bilaterally Gastrointestinal: Yes: Normal Bowel Sounds Extremities: Yes: Other (b/l annemarie cellulitis) Neurological: Yes: Alert, Oriented Labs: CBC, BMP 11/11/18 06:30 11/11/18 06:30 Problem List - Problems (1) Cellulitis Assessment/Plan: iv abx id consult dvt ppx Code(s): L03.90 - CELLULITIS, UNSPECIFIED Qualifiers: Site of cellulitis: extremity Site of cellulitis of extremity: lower extremity Laterality: right Qualified Code(s): L03.115 - Cellulitis of right lower limb (2) Thrombosis of right saphenous vein Code(s): I82.811 - EMBOLISM AND THROMBOSIS OF SUPERFICIAL VEINS OF R LOW EXTREM (3) CHF (congestive heart failure) Code(s): I50.9 - HEART FAILURE, UNSPECIFIED (4) Hypothyroidism Assessment/Plan: on meds Code(s): E03.9 - HYPOTHYROIDISM, UNSPECIFIED Qualifiers: Hypothyroidism type: unspecified Qualified Code(s): E03.9 - Hypothyroidism , unspecified (5) Seizure disorder Assessment/Plan: on meds stable Code(s): G40.909 - EPILEPSY, UNSP, NOT INTRACTABLE, WITHOUT STATUS EPILEPTICUS
[2018-11-13] MEDS: DIVALPROEX NA *ER* EXTEND REL 250 MG TABLET.SA PO SCH (21:03)
[2018-11-14] MEDS ORDERED: AZTREONAM 1 GM VIAL (RESTRICTED TO ID) ONE ×2 (02:10→09:13)
[2018-11-14] MEDS ORDERED: DEXTROSE 5%-WATER - 50 ML IVPB ONE ×2 (02:10→09:14)
[2018-11-14] MEDS: AZTREONAM 1 GM in DEXTROSE 5%-WATER - 50 ML IVPB SCH ×2 (02:25→09:25)
[2018-11-14] MEDS: DIVALPROEX NA *ER* EXTEND REL 500 MG TABLET.SA (FP) PO SCH (06:00)
--- NOTE | 2018-11-14 07:26 | PN ---
Progress Note (short form) - Note Progress Note: Chief Complaint: Events noted, note reviewed, overall no change in status, denies any chest pain or dyspnea History of Present Illness: Seen and examined. Events noted, note reviewed, overall no change in status, denies any chest pain or dyspnea - Current Medication List Current Medications Acetaminophen (Tylenol -) 650 mg PO Q6H PRN PRN Reason: FEVER Last Admin: 11/10/18 10:12 Dose: 650 mg Divalproex Sodium (Depakote *Er* -) 1,000 mg PO AM [facility] Last Admin: 11/14/18 06:00 Dose: 1,000 mg Divalproex Sodium (Depakote *Er* -) 750 mg PO HS [facility] Last Admin: 11/13/18 21:03 Dose: 750 mg Furosemide (Lasix -) 20 mg PO DAILY [facility] Last Admin: 11/13/18 10:56 Dose: 20 mg Vancomycin HCl 1,500 mg/ (Dextrose) 500 mls @ 250 mls/hr IVPB Q24H [facility]; Protocol Last Admin: 11/13/18 12:15 Dose: 250 mls/hr Aztreonam 1 gm/ Dextrose 50 mls @ 100 mls/hr IVPB Q8H-IV [facility]; Protocol Last Admin: 11/14/18 02:25 Dose: 100 mls/hr Levetiracetam (Keppra -) 1,500 mg PO BID [facility] Last Admin: 11/13/18 21:02 Dose: 1,500 mg Levothyroxine Sodium (Synthroid -) 100 mcg PO DAILY [facility] Last Admin: 11/13/18 10:56 Dose: 100 mcg - Objective Vital Signs: Last Vital Signs Temp Pulse Resp BP Pulse Ox 97.7 F 76 20 138/61 99 11/14/18 05:44 11/14/18 05:44 11/14/18 05:44 11/14/18 05:44 11/13/18 20:54 Intake & Output 11/11/18 11/12/18 11/13/18 11/14/18 23:59 23:59 23:59 23:59 Intake Total 1365 1885 1250 300 Balance 1365 1885 1250 300 Weight 164 lb Constitutional: No Distress, Calm Neck: Supple Negative JVD No Bruit Respiratory: Diminished Breath Sounds at the Bases Cardiovascular: S1 S2 Regular Rate Rhythm Gastrointestinal: Soft Benign Normal Bowel Sounds Ext: Edema Bilateral Labs: CBC, BMP 11/11/18 06:30 11/11/18 06:30 Hepatic Panel Total Bilirubin 0.7 mg/dL (0.2-1) 11/11/18 06:30 AST 12 U/L (15-37) L 11/11/18 06:30 ALT 9 U/L (13-61) L 11/11/18 06:30 Alkaline Phosphatase 55 U/L (45-117) 11/11/18 06:30 Albumin 2.7 g/dl (3.4-5.0) L 11/11/18 06:30 ASSESSMENT: 1. Lower extremity edema overlying cellulitis, resolving 2. Diastolic dysfunction with clinical class 0-I NYHA classification LV failure , clinically compensated 3. HTN 4. Seizure disorder 5. Hypothyroidism 6. Right superficial greater saphenous vein thrombosis PLAN: 1. Antibiotic as per primary team 2. Advised leg elevation 3. As outlined add ACEI or ARBS unless contraindicated 4. Continue Lasix and as outlined may consider Aldactone if edema persists Salima Watts M.D.
[2018-11-14] MEDS ORDERED: PT OWN MED DRAWER 7, Y5N ONE (09:06)
[2018-11-14] MEDS: levETIRAcetam 500 MG TABLET (FP) PO SCH (09:26)
[2018-11-14] MEDS: FUROSEMIDE 20 MG TABLET (FP) PO SCH (09:26)
[2018-11-14] MEDS: LEVOTHYROXINE NA 100 MCG TABLET (FP) PO SCH (09:26)
[2018-11-14] MEDS ORDERED: VALSARTAN 80 MG TABLET (UD) PO SCH (10:00)
--- NOTE | 2018-11-14 11:43 | PN ---
Progress Note, Physician History of Present Illness: doing well leg looks better - Current Medication List Current Medications: Active Medications Acetaminophen (Tylenol -) 650 mg PO Q6H PRN PRN Reason: FEVER Last Admin: 11/10/18 10:12 Dose: 650 mg Divalproex Sodium (Depakote *[facility]* -) 1,000 mg PO AM [facility] Last Admin: 11/14/18 06:00 Dose: 1,000 mg Divalproex Sodium (Depakote *Er* -) 750 mg PO HS [facility] Last Admin: 11/13/18 21:03 Dose: 750 mg Furosemide (Lasix -) 20 mg PO DAILY [facility] Last Admin: 11/14/18 09:26 Dose: 20 mg Levetiracetam (Keppra -) 1,500 mg PO BID [facility] Last Admin: 11/14/18 09:26 Dose: 1,500 mg Levothyroxine Sodium (Synthroid -) 100 mcg PO DAILY [facility] Last Admin: 11/14/18 09:26 Dose: 100 mcg Valsartan (Diovan -) 80 mg PO DAILY [facility] Last Admin: 11/14/18 09:26 Dose: 80 mg - Objective Vital Signs: Vital Signs Temperature 97.7 F 11/14/18 05:44 Pulse Rate 76 11/14/18 05:44 Respiratory Rate 20 11/14/18 05:44 Blood Pressure 138/61 11/14/18 05:44 O2 Sat by Pulse Oximetry (%) 99 11/13/18 20:54 Constitutional: Yes: No Distress, Calm, Obese Cardiovascular: Yes: Regular Rate and Rhythm Respiratory: Yes: Regular, CTA Bilaterally Gastrointestinal: Yes: Normal Bowel Sounds, Soft Musculoskeletal: Yes: WNL Extremities: Yes: Other Integumentary: Yes: Erythema (improved) Neurological: Yes: Alert, Oriented Psychiatric: Yes: Alert, Oriented Labs: CBC, BMP 11/11/18 06:30 11/11/18 06:30 Assessment/Plan Problem List - Problems (1) Cellulitis Code(s): L03.90 - CELLULITIS, UNSPECIFIED Qualifiers: Site of cellulitis: extremity Site of cellulitis of extremity: lower extremity Laterality: right Qualified Code(s): L03.115 - Cellulitis of right lower limb (2) Thrombosis of right saphenous vein Code(s): I82.811 - EMBOLISM AND THROMBOSIS OF SUPERFICIAL VEINS OF R LOW EXTREM (3) CHF (congestive heart failure) Code(s): I50.9 - HEART FAILURE, UNSPECIFIED (4) Hypothyroidism Code(s): E03.9 - HYPOTHYROIDISM, UNSPECIFIED Qualifiers: Hypothyroidism type: unspecified Qualified Code(s): E03.9 - Hypothyroidism , unspecified (5) Seizure disorder Code(s): G40.909 - EPILEPSY, UNSP, NOT INTRACTABLE, WITHOUT STATUS EPILEPTICUS Assessment/Plan RLE cellulitis Saphenous vein thrombosis -will switch patient to oral [id number] mg po bid for 10 more days rest as per the team
[2018-11-14 13:31] VITALS: BP 121/60; PULSE 83; TEMP 98.8
--- NOTE | 2018-11-14 14:05 | DS ---
Physical Examination Vital Signs: Vital Signs Temperature 98.8 F 11/14/18 13:29 Pulse Rate 83 11/14/18 13:29 Respiratory Rate 20 11/14/18 13:29 Blood Pressure 121/60 11/14/18 13:29 O2 Sat by Pulse Oximetry (%) 97 11/14/18 09:00 Constitutional: Yes: No Distress HENT: Yes: Atraumatic Neck: Yes: Supple Cardiovascular: Yes: Regular Rate and Rhythm Respiratory: Yes: CTA Bilaterally Gastrointestinal: Yes: Normal Bowel Sounds Extremities: Yes: Other (annemarie b/l annemarie cellulitis improving) Neurological: Yes: Alert, Oriented Labs: CBC, BMP 11/11/18 06:30 11/11/18 06:30 Discharge Summary Reason For Visit: CELLIULITIS,THROMBOSIS OF RIGHT SAPHENOUS VEIN Current Active Problems Cellulitis (Acute) Diastolic dysfunction (Acute) Elevated LFTs (Acute) Thrombosis of right saphenous vein (Acute) Condition: Good - Instructions Diet, Activity, Other Instructions: -will switch patient to oral [id number] mg po bid for 10 more days wound care [facility] 3-5 days Referrals: Roney Herrera MD [Staff Physician] - Tressa Beckford MD [Staff Physician] - Carl Thompson DO [Staff Physician] - Disposition: [facility]IV[facility] FACILITY - Home Medications Comprehensive Discharge Medication List: Ambulatory Orders Acetaminophen 650 mg PO DAILY 11/06/18 Calcium Citrate [Calcitrate] 200 mg PO DAILY 11/06/18 Chlorhexidine Gluconate [Peridex -] 15 ml MM BID 11/06/18 Divalproex Sodium [Depakote] 1,000 mg PO AC 11/06/18 Ergocalciferol (Vitamin D2) [Vitamin D2] 50,000 unit PO WEEKLY 11/06/18 Furosemide [Lasix] 20 mg PO DAILY 11/06/18 Ibuprofen [Motrin -] 600 mg PO TID 11/06/18 Levothyroxine Sodium [Levoxyl] 100 mcg PO AC 11/06/18 Polyvinyl Alcohol [Liquitears] 15 ml OP BID 11/06/18 Potassium Chloride 10 meq PO DAILY 11/06/18 Silver Sulfadiazine [Ssd] 1 applic TP DAILY 11/06/18 Depakote 750 mg PO HS 11/07/18 Keppra 1,500 mg PO BID 11/07/18 diovan 80 mg po daily -will switch patient to oral [id number] mg po bid for 10 more days id home
== END 2018-11-14 17:14 | disposition home or self-care (01) | DRG 603 ==
LOC: JER 16:22 → JERBED 20:15 → J6S 11-07 00:13
PROVIDERS: ADMIT Internal Medicine; ATTEND Internal Medicine
DX: L03.115 Cellulitis of right lower limb (principal); I82.811 Embolism and thrombosis of superficial veins of right lower extremity; I50.30 Unspecified diastolic (congestive) heart failure; I47.1 Supraventricular tachycardia; E03.9 Hypothyroidism, unspecified; G40.909 Epilepsy, unspecified, not intractable, without status epilepticus; I10 Essential (primary) hypertension; E66.9 Obesity, unspecified; Z68.34 Body mass index [BMI] 34.0-34.9, adult
CPT/HCPCS: 36415; 73590-TC-RT-FY; 80053; 83735; 85025; 87040; 87086; 93306-TC; 93971-TC; 97116-GP; 97161-GP; 99281-25; G0480; J0131; J1644

== ENCOUNTER 2020-06-22 18:09 | Inpatient (IN) | payer MEDICARE, OTHER ==
[2020-06-22] MEDS ORDERED: ACETAMINOPHEN 1000 MG/100 ML VIAL (NON FORMULARY) IVPB ONE (18:52)
[2020-06-22] MEDS ORDERED: ACETAMINOPHEN INJECTION 100 ML IVPB ONE (19:20)
[2020-06-22 19:54] LABS: BASO % 0.1 % (0-2.0); HEMATOCRIT 41.6 % (32.4-45.2); HEMOGLOBIN 14.4 GM/dL (10.7-15.3); LYMPH % 28.1 % (8-40); MCH 34.7 pg (25.7-33.7); MCHC 34.6 g/dl (32.0-36.0); MEAN CELL VOLUME 100.2 fl (80-96); MEAN PLT VOLUME 6.8 fl (7.5-11.1); MONO % 15.6 % (3.8-10.2); NEUT % 56.2 % (42.8-82.8); PLATELET COUNT 99 K/MM3 (134-434); RBC 4.15 M/mm3 (3.60-5.2); RDW 14.2 % (11.6-15.6); WHITE BLOOD COUNT 6.1 K/mm3 (4.0-10.0)
[2020-06-22 20:02] LABS: INR 1.03 (0.83-1.09); PROTHROMBIN TIME (PATIENT) 12.7 SEC (9.7-13.0)
[2020-06-22 20:04] LABS: ACTIVATED PTT 22.8 SECONDS (25.2-36.5)
[2020-06-22 20:47] LABS: CHLORIDE 102 mmol/L (98-107); POTASSIUM 3.7 mmol/L (3.5-5.1); SODIUM 141 mmol/L (136-145)
[2020-06-22 20:49] LABS: CALCIUM 9.6 mg/dL (8.5-10.1)
[2020-06-22 20:50] LABS: ALBUMIN 3.4 g/dl (3.4-5.0); ANION GAP 7 MMOL/L (8-16); CO2 32 mmol/L (21-32); LIPASE 52 U/L (73-393)
[2020-06-22 20:51] LABS: MAGNESIUM 1.8 mg/dL (1.8-2.4)
[2020-06-22 20:53] LABS: CREATININE 0.9 mg/dL (0.55-1.3); SGOT/AST 14 U/L (15-37); SGPT/ALT 12 U/L (13-61)
[2020-06-22 20:55] LABS: BILIRUBIN,TOTAL 0.8 mg/dL (0.2-1); TOT PROT 6.8 g/dl (6.4-8.2)
[2020-06-22 20:56] LABS: ALK PHOS 56 U/L (45-117)
[2020-06-22 21:27] LABS: BLOOD UREA NITROGEN 24.6 mg/dL (7-18); GLUCOSE,RANDOM 88 mg/dL (74-106)
[2020-06-23 01:28] LABS: URINE APPEARANCE CLEAR; URINE COLOR YELLOW; URINE GLUCOSE (UA) NEGATIVE (NEGATIVE)
[2020-06-23 01:29] LABS: URINE BILIRUBIN NEGATIVE (NEGATIVE); URINE KETONE TRACE (NEGATIVE)
[2020-06-23 01:30] LABS: PH,URINE 6.5 (5.0-8.0); URINE NITRITE NEGATIVE (NEGATIVE); URINE PROTEIN NEGATIVE (NEGATIVE)
[2020-06-23 01:31] LABS: EPI CELLS 22.1 /uL (0-25.1); HYALINE CASTS 2.4 /uL (0-3.1); URINE BACTERIA 31.5 /uL (0-1359); URINE LEUK ESTERASE NEGATIVE (NEGATIVE); URINE RBC 12.9 /uL (0-23.9); URINE WBC 102.9 /uL (0-25.8)
[2020-06-23] MEDS ORDERED: ERGOCALCIFEROL (VIT D2) 50,000 UNIT (1.25 MG) CAPSULE PO SCH (05:00)
[2020-06-23] MEDS ORDERED: ARTIFICIAL TEARS (POLYVINYL ALCOHOL) OPTH DROPS OU PRN (05:07)
[2020-06-23] MEDS ORDERED: LEVOTHYROXINE NA 25 MCG TABLET (FP) ONE ×2 (06:17→06:48)
[2020-06-23] MEDS: LEVOTHYROXINE NA 100 MCG TABLET (FP) PO SCH (06:45)
[2020-06-23 06:55] LABS: BASO % 0.1 % (0-2.0); HEMATOCRIT 41.8 % (32.4-45.2); HEMOGLOBIN 14.7 GM/dL (10.7-15.3); LYMPH % 39.6 % (8-40); MCH 35.1 pg (25.7-33.7); MCHC 35.2 g/dl (32.0-36.0); MEAN CELL VOLUME 99.7 fl (80-96); MEAN PLT VOLUME 6.5 fl (7.5-11.1); MONO % 18.3 % (3.8-10.2); PLATELET COUNT 104 K/MM3 (134-434); RBC 4.19 M/mm3 (3.60-5.2); RDW 13.9 % (11.6-15.6); WHITE BLOOD COUNT 6.9 K/mm3 (4.0-10.0)
[2020-06-23 07:22] LABS: POTASSIUM 3.8 mmol/L (3.5-5.1)
[2020-06-23 07:24] LABS: ALBUMIN 3.6 g/dl (3.4-5.0); CALCIUM 9.8 mg/dL (8.5-10.1)
[2020-06-23 07:25] LABS: BLOOD UREA NITROGEN 26.3 mg/dL (7-18); MAGNESIUM 1.9 mg/dL (1.8-2.4)
[2020-06-23 07:28] LABS: CREATININE 0.9 mg/dL (0.55-1.3); PHOSPHOROUS 4.3 mg/dL (2.5-4.9)
[2020-06-23 07:29] LABS: BILIRUBIN,TOTAL 0.9 mg/dL (0.2-1); TOT PROT 7.4 g/dl (6.4-8.2)
[2020-06-23] MEDS ORDERED: PATIENT'S OWN MEDICATION (NON-FORMULARY) (Ascorbate Calcium [Vitamin C] 500 MG Tablet) PO SCH (10:00)
[2020-06-23] MEDS ORDERED: PATIENT'S OWN MEDICATION (NON-FORMULARY) (Propylene Glycol/Peg 400/Pf [Systane 0.3-0.4% Ey OP SCH (10:00)
[2020-06-23] MEDS ORDERED: PATIENT'S OWN MEDICATION (NON-FORMULARY) (Calcium Citrate [Calcitrate] 200 MG Tablet) PO SCH (10:00)
[2020-06-23] MEDS ORDERED: ASCORBIC ACID 500 MG TABLET (FP) ONE (10:25)
[2020-06-23] MEDS ORDERED: ENOXAPARIN NA (PORCINE) 40 MG/0.4 ML DISP.SYRIN SQ ONE (10:26)
[2020-06-23] MEDS: SODIUM CHLORIDE 1,000 ML IV SCH (10:34)
[2020-06-23] MEDS: ENOXAPARIN NA (PORCINE) 40 MG/0.4 ML DISP.SYRIN SQ SCH (10:36)
[2020-06-23] MEDS: ASCORBIC ACID 500 MG TABLET (FP) PO SCH (10:36)
[2020-06-23] MEDS: CALCIUM CARBONATE SUSPENSION - 500 MG/5 ML ML PO SCH (10:36)
[2020-06-23] MEDS: DIVALPROEX NA *ER* EXTEND REL 500 MG TABLET.SA (FP) PO SCH ×2 (10:37→22:27)
[2020-06-23] MEDS ORDERED: levETIRAcetam 500 MG TABLET (FP) PO ONE (10:38)
[2020-06-23] MEDS: levETIRAcetam 500 MG TABLET (FP) PO SCH ×2 (10:40→22:27)
[2020-06-23] MEDS ORDERED: PT OWN MED DRAWER 7, Y5N ONE (22:06)
[2020-06-23] MEDS: DIVALPROEX NA *ER* EXTEND REL 250 MG TABLET.SA PO SCH (22:27)
[2020-06-24] MEDS: LEVOTHYROXINE NA 100 MCG TABLET (FP) PO SCH (06:28)
[2020-06-24 07:36] LABS: BASO % 0.1 % (0-2.0); HEMATOCRIT 35.5 % (32.4-45.2); HEMOGLOBIN 12.4 GM/dL (10.7-15.3); LYMPH % 51.7 % (8-40); MCH 34.5 pg (25.7-33.7); MCHC 34.8 g/dl (32.0-36.0); MEAN CELL VOLUME 99.2 fl (80-96); MEAN PLT VOLUME 6.9 fl (7.5-11.1); MONO % 18.2 % (3.8-10.2); RBC 3.58 M/mm3 (3.60-5.2); RDW 13.6 % (11.6-15.6); WHITE BLOOD COUNT 5.6 K/mm3 (4.0-10.0)
[2020-06-24 07:50] LABS: POTASSIUM 3.7 mmol/L (3.5-5.1)
[2020-06-24 07:52] LABS: CALCIUM 8.5 mg/dL (8.5-10.1)
[2020-06-24 07:53] LABS: ALBUMIN 2.8 g/dl (3.4-5.0); BLOOD UREA NITROGEN 30.7 mg/dL (7-18)
[2020-06-24 07:56] LABS: CREATININE 0.7 mg/dL (0.55-1.3)
[2020-06-24 07:57] LABS: BILIRUBIN,TOTAL 0.7 mg/dL (0.2-1); TOT PROT 5.7 g/dl (6.4-8.2)
[2020-06-24] MEDS ORDERED: PT OWN MED DRAWER 7, Y5N ONE (09:09)
[2020-06-24] MEDS ORDERED: LISINOPRIL 10 MG TABLET PO SCH (10:00)
[2020-06-24] MEDS ORDERED: LISINOPRIL 5 MG TABLET PO SCH (10:00)
[2020-06-24] MEDS: SODIUM CHLORIDE 1,000 ML IV SCH (10:32)
[2020-06-24 10:33] LABS: PLATELET COUNT 86 K/MM3 (134-434)
[2020-06-24] MEDS: DIVALPROEX NA *ER* EXTEND REL 500 MG TABLET.SA (FP) PO SCH ×2 (10:33→22:42)
[2020-06-24] MEDS: CALCIUM CARBONATE SUSPENSION - 500 MG/5 ML ML PO SCH (10:33)
[2020-06-24] MEDS: ENOXAPARIN NA (PORCINE) 40 MG/0.4 ML DISP.SYRIN SQ SCH (10:34)
[2020-06-24] MEDS: ASCORBIC ACID 500 MG TABLET (FP) PO SCH (10:34)
[2020-06-24] MEDS: levETIRAcetam 500 MG TABLET (FP) PO SCH ×2 (10:34→22:42)
[2020-06-24] MEDS: metoPROLOL SUCCINATE 25 MG TAB.SR.24H (FP) PO SCH (10:59)
[2020-06-24] MEDS: VALSARTAN 40 MG TABLET PO SCH (10:59)
[2020-06-24] MEDS: DIVALPROEX NA *ER* EXTEND REL 250 MG TABLET.SA PO SCH (22:42)
[2020-06-24] MEDS: ROSUVASTATIN CA 10 MG TABLET (FP) PO SCH (22:42)
[2020-06-25] MEDS: LEVOTHYROXINE NA 100 MCG TABLET (FP) PO SCH (06:28)
[2020-06-25] MEDS: SODIUM CHLORIDE 1,000 ML IV SCH (07:45)
[2020-06-25 09:25] LABS: BASO % 0.2 % (0-2.0); EOS % 0.1 % (0-4.5); HEMATOCRIT 34.8 % (32.4-45.2); HEMOGLOBIN 12.4 GM/dL (10.7-15.3); LYMPH % 50.2 % (8-40); MCH 35.2 pg (25.7-33.7); MCHC 35.6 g/dl (32.0-36.0); MEAN CELL VOLUME 98.9 fl (80-96); MEAN PLT VOLUME 6.9 fl (7.5-11.1); MONO % 14.4 % (3.8-10.2); NEUT % 35.1 % (42.8-82.8); PLATELET COUNT 92 K/MM3 (134-434); RBC 3.52 M/mm3 (3.60-5.2); RDW 13.3 % (11.6-15.6); WHITE BLOOD COUNT 6.4 K/mm3 (4.0-10.0)
[2020-06-25] MEDS: CALCIUM CARBONATE SUSPENSION - 500 MG/5 ML ML PO SCH (09:35)
[2020-06-25] MEDS: levETIRAcetam 500 MG TABLET (FP) PO SCH ×2 (09:36→21:22)
[2020-06-25] MEDS: metoPROLOL SUCCINATE 25 MG TAB.SR.24H (FP) PO SCH (09:36)
[2020-06-25] MEDS: DIVALPROEX NA *ER* EXTEND REL 500 MG TABLET.SA (FP) PO SCH ×2 (09:36→22:00)
[2020-06-25] MEDS: VALSARTAN 40 MG TABLET PO SCH (09:37)
[2020-06-25] MEDS: ASCORBIC ACID 500 MG TABLET (FP) PO SCH (09:37)
[2020-06-25] MEDS: ENOXAPARIN NA (PORCINE) 40 MG/0.4 ML DISP.SYRIN SQ SCH (09:37)
[2020-06-25 09:43] LABS: POTASSIUM 3.9 mmol/L (3.5-5.1)
[2020-06-25 09:46] VITALS: BMI 32.1
[2020-06-25 10:14] LABS: CALCIUM 8.6 mg/dL (8.5-10.1)
[2020-06-25 10:15] LABS: ALBUMIN 2.6 g/dl (3.4-5.0); MAGNESIUM 1.9 mg/dL (1.8-2.4)
[2020-06-25 10:17] LABS: CREATININE 0.6 mg/dL (0.55-1.3)
[2020-06-25 10:18] LABS: BILIRUBIN,TOTAL 0.6 mg/dL (0.2-1); PHOSPHOROUS 2.7 mg/dL (2.5-4.9)
[2020-06-25 10:19] LABS: TOT PROT 5.5 g/dl (6.4-8.2)
[2020-06-25] MEDS ORDERED: REMDESIVIR 200 MG in SODIUM CHLORIDE 210 ML IVPB ONE (15:00)
[2020-06-25] MEDS: DEXAMETHASONE SOD PHOSPHATE 10 MG/1 ML VIAL IVPUSH SCH (15:39)
[2020-06-25] MEDS: DIVALPROEX NA *ER* EXTEND REL 250 MG TABLET.SA PO SCH (21:22)
[2020-06-25] MEDS: ROSUVASTATIN CA 10 MG TABLET (FP) PO SCH (21:22)
[2020-06-26] MEDS: ACETAMINOPHEN 325 MG TABLET (FP) PO PRN ×2 (00:06→21:45)
[2020-06-26] MEDS: LEVOTHYROXINE NA 100 MCG TABLET (FP) PO SCH (06:07)
[2020-06-26] MEDS: CALCIUM CARBONATE SUSPENSION - 500 MG/5 ML ML PO SCH (10:31)
[2020-06-26] MEDS: DEXAMETHASONE SOD PHOSPHATE 10 MG/1 ML VIAL IVPUSH SCH (10:31)
[2020-06-26] MEDS: DIVALPROEX NA *ER* EXTEND REL 500 MG TABLET.SA (FP) PO SCH ×2 (10:31→21:23)
[2020-06-26] MEDS: VALSARTAN 40 MG TABLET PO SCH (10:31)
[2020-06-26] MEDS: SODIUM CHLORIDE 1,000 ML IV SCH (10:31)
[2020-06-26] MEDS: ENOXAPARIN NA (PORCINE) 40 MG/0.4 ML DISP.SYRIN SQ SCH (10:32)
[2020-06-26] MEDS: PANTOPRAZOLE 40 MG TABLET PO SCH (10:32)
[2020-06-26] MEDS: metoPROLOL SUCCINATE 25 MG TAB.SR.24H (FP) PO SCH (10:32)
[2020-06-26] MEDS: levETIRAcetam 500 MG TABLET (FP) PO SCH ×2 (10:32→21:23)
[2020-06-26] MEDS: ASCORBIC ACID 500 MG TABLET (FP) PO SCH (10:32)
[2020-06-26] MEDS: MULTIVITAMINS THER W-MINERALS COMBO TABLET (FP) PO SCH (10:32)
[2020-06-26 13:49] LABS: BASO % 0.2 % (0-2.0); HEMOGLOBIN 13.2 GM/dL (10.7-15.3); LYMPH % 20.2 % (8-40); MCH 34.6 pg (25.7-33.7); MCHC 34.7 g/dl (32.0-36.0); MEAN CELL VOLUME 99.9 fl (80-96); MEAN PLT VOLUME 7.6 fl (7.5-11.1); MONO % 9.9 % (3.8-10.2); NEUT % 69.7 % (42.8-82.8); PLATELET COUNT 129 K/MM3 (134-434); RDW 13.7 % (11.6-15.6); WHITE BLOOD COUNT 9.1 K/mm3 (4.0-10.0)
[2020-06-26 14:18] LABS: CALCIUM 8.8 mg/dL (8.5-10.1)
[2020-06-26 14:19] LABS: ALBUMIN 2.8 g/dl (3.4-5.0); BLOOD UREA NITROGEN 34.5 mg/dL (7-18)
[2020-06-26 14:21] LABS: CREATININE 0.9 mg/dL (0.55-1.3)
[2020-06-26 14:22] LABS: BILIRUBIN,TOTAL 0.5 mg/dL (0.2-1)
[2020-06-26] MEDS: REMDESIVIR 100 MG in SODIUM CHLORIDE 230 ML IVPB SCH (16:59)
[2020-06-26] MEDS: ROSUVASTATIN CA 10 MG TABLET (FP) PO SCH (21:23)
[2020-06-26] MEDS: DIVALPROEX NA *ER* EXTEND REL 250 MG TABLET.SA PO SCH (21:25)
[2020-06-27] MEDS: ACETAMINOPHEN 325 MG TABLET (FP) PO PRN ×2 (06:51→21:34)
[2020-06-27] MEDS: LEVOTHYROXINE NA 100 MCG TABLET (FP) PO SCH (06:52)
[2020-06-27] MEDS ORDERED: PT OWN MED DRAWER 7, Y5N ONE ×2 (08:51→20:27)
[2020-06-27 09:28] LABS: BASO % 0.2 % (0-2.0); HEMATOCRIT 35.4 % (32.4-45.2); HEMOGLOBIN 12.5 GM/dL (10.7-15.3); LYMPH % 25.6 % (8-40); MCH 35.2 pg (25.7-33.7); MCHC 35.2 g/dl (32.0-36.0); MEAN CELL VOLUME 99.9 fl (80-96); MEAN PLT VOLUME 7.7 fl (7.5-11.1); MONO % 13.1 % (3.8-10.2); NEUT % 61.1 % (42.8-82.8); PLATELET COUNT 113 K/MM3 (134-434); RBC 3.54 M/mm3 (3.60-5.2); RDW 13.6 % (11.6-15.6); WHITE BLOOD COUNT 6.5 K/mm3 (4.0-10.0)
[2020-06-27 09:42] LABS: POTASSIUM 4.3 mmol/L (3.5-5.1)
[2020-06-27 09:46] LABS: CALCIUM 8.5 mg/dL (8.5-10.1)
[2020-06-27 09:47] LABS: ALBUMIN 2.7 g/dl (3.4-5.0); BLOOD UREA NITROGEN 41.2 mg/dL (7-18)
[2020-06-27 09:49] LABS: CREATININE 0.7 mg/dL (0.55-1.3)
[2020-06-27 09:51] LABS: BILIRUBIN,TOTAL 0.5 mg/dL (0.2-1); TOT PROT 5.6 g/dl (6.4-8.2)
[2020-06-27] MEDS: DEXAMETHASONE SOD PHOSPHATE 10 MG/1 ML VIAL IVPUSH SCH (10:44)
[2020-06-27] MEDS: CALCIUM CARBONATE SUSPENSION - 500 MG/5 ML ML PO SCH (10:44)
[2020-06-27] MEDS: DIVALPROEX NA *ER* EXTEND REL 500 MG TABLET.SA (FP) PO SCH ×2 (10:45→21:33)
[2020-06-27] MEDS: PANTOPRAZOLE 40 MG TABLET PO SCH (10:45)
[2020-06-27] MEDS: ENOXAPARIN NA (PORCINE) 40 MG/0.4 ML DISP.SYRIN SQ SCH (10:45)
[2020-06-27] MEDS: levETIRAcetam 500 MG TABLET (FP) PO SCH ×2 (10:46→21:34)
[2020-06-27] MEDS: MULTIVITAMINS THER W-MINERALS COMBO TABLET (FP) PO SCH (10:46)
[2020-06-27] MEDS: ASCORBIC ACID 500 MG TABLET (FP) PO SCH (10:46)
[2020-06-27] MEDS: metoPROLOL SUCCINATE 25 MG TAB.SR.24H (FP) PO SCH (10:47)
[2020-06-27] MEDS: VALSARTAN 40 MG TABLET PO SCH (10:47)
[2020-06-27] MEDS: REMDESIVIR 100 MG in SODIUM CHLORIDE 230 ML IVPB SCH (15:24)
[2020-06-27] MEDS: ROSUVASTATIN CA 10 MG TABLET (FP) PO SCH (21:34)
[2020-06-27] MEDS: DIVALPROEX NA *ER* EXTEND REL 250 MG TABLET.SA PO SCH (21:40)
[2020-06-28] MEDS: LEVOTHYROXINE NA 100 MCG TABLET (FP) PO SCH (06:15)
[2020-06-28 08:50] LABS: BASO % 0.2 % (0-2.0); HEMATOCRIT 32.9 % (32.4-45.2); HEMOGLOBIN 11.5 GM/dL (10.7-15.3); LYMPH % 29.4 % (8-40); MCHC 34.8 g/dl (32.0-36.0); MEAN CELL VOLUME 100.6 fl (80-96); MONO % 11.4 % (3.8-10.2); PLATELET COUNT 107 K/MM3 (134-434); RBC 3.27 M/mm3 (3.60-5.2); RDW 13.8 % (11.6-15.6); WHITE BLOOD COUNT 6.2 K/mm3 (4.0-10.0)
[2020-06-28 09:14] LABS: POTASSIUM 4.2 mmol/L (3.5-5.1)
[2020-06-28 09:32] LABS: ALBUMIN 2.4 g/dl (3.4-5.0); BLOOD UREA NITROGEN 43.1 mg/dL (7-18); CALCIUM 8.4 mg/dL (8.5-10.1)
[2020-06-28 09:35] LABS: CREATININE 0.6 mg/dL (0.55-1.3)
[2020-06-28 09:37] LABS: BILIRUBIN,TOTAL 0.5 mg/dL (0.2-1)
[2020-06-28] MEDS ORDERED: PT OWN MED DRAWER 7, Y5N ONE ×2 (10:10→23:29)
[2020-06-28] MEDS: DEXAMETHASONE SOD PHOSPHATE 10 MG/1 ML VIAL IVPUSH SCH (11:18)
[2020-06-28] MEDS: ENOXAPARIN NA (PORCINE) 40 MG/0.4 ML DISP.SYRIN SQ SCH (11:18)
[2020-06-28] MEDS: MULTIVITAMINS THER W-MINERALS COMBO TABLET (FP) PO SCH (11:19)
[2020-06-28] MEDS: ASCORBIC ACID 500 MG TABLET (FP) PO SCH (11:19)
[2020-06-28] MEDS: metoPROLOL SUCCINATE 25 MG TAB.SR.24H (FP) PO SCH (11:19)
[2020-06-28] MEDS: PANTOPRAZOLE 40 MG TABLET PO SCH (11:19)
[2020-06-28] MEDS: levETIRAcetam 500 MG TABLET (FP) PO SCH ×2 (11:19→23:30)
[2020-06-28] MEDS: CALCIUM CARBONATE SUSPENSION - 500 MG/5 ML ML PO SCH (11:20)
[2020-06-28] MEDS: DIVALPROEX NA *ER* EXTEND REL 500 MG TABLET.SA (FP) PO SCH ×2 (11:20→23:30)
[2020-06-28] MEDS: VALSARTAN 40 MG TABLET PO SCH (11:21)
[2020-06-28] MEDS: REMDESIVIR 100 MG in SODIUM CHLORIDE 230 ML IVPB SCH (16:11)
[2020-06-28] MEDS: DIVALPROEX NA *ER* EXTEND REL 250 MG TABLET.SA PO SCH (23:30)
[2020-06-28] MEDS: ROSUVASTATIN CA 10 MG TABLET (FP) PO SCH (23:31)
[2020-06-29] MEDS: LEVOTHYROXINE NA 100 MCG TABLET (FP) PO SCH (07:15)
[2020-06-29 08:47] LABS: HEMATOCRIT 32.6 % (32.4-45.2); HEMOGLOBIN 11.3 GM/dL (10.7-15.3); MCH 35.1 pg (25.7-33.7); MCHC 34.7 g/dl (32.0-36.0); MEAN CELL VOLUME 101.2 fl (80-96); MEAN PLT VOLUME 9.2 fl (7.5-11.1); PLATELET COUNT 49 K/MM3 (134-434); RBC 3.22 M/mm3 (3.60-5.2); RDW 13.5 % (11.6-15.6); WHITE BLOOD COUNT 5.7 K/mm3 (4.0-10.0)
[2020-06-29] MEDS: VALSARTAN 40 MG TABLET PO SCH (09:06)
[2020-06-29] MEDS: PANTOPRAZOLE 40 MG TABLET PO SCH (09:06)
[2020-06-29] MEDS: MULTIVITAMINS THER W-MINERALS COMBO TABLET (FP) PO SCH (09:07)
[2020-06-29] MEDS: levETIRAcetam 500 MG TABLET (FP) PO SCH ×2 (09:07→23:12)
[2020-06-29] MEDS: ASCORBIC ACID 500 MG TABLET (FP) PO SCH (09:08)
[2020-06-29] MEDS: ENOXAPARIN NA (PORCINE) 40 MG/0.4 ML DISP.SYRIN SQ SCH (09:08)
[2020-06-29] MEDS: DEXAMETHASONE SOD PHOSPHATE 10 MG/1 ML VIAL IVPUSH SCH (09:08)
[2020-06-29 09:16] LABS: ALBUMIN 2.6 g/dl (3.4-5.0); BILIRUBIN,TOTAL 0.7 mg/dL (0.2-1); BLOOD UREA NITROGEN 32.5 mg/dL (7-18); CALCIUM 8.4 mg/dL (8.5-10.1); CREATININE 0.7 mg/dL (0.55-1.3); POTASSIUM 5.1 mmol/L (3.5-5.1); TOT PROT 5.3 g/dl (6.4-8.2)
[2020-06-29] MEDS: CALCIUM CARBONATE SUSPENSION - 500 MG/5 ML ML PO SCH (09:18)
[2020-06-29] MEDS: DIVALPROEX NA *ER* EXTEND REL 500 MG TABLET.SA (FP) PO SCH ×2 (09:19→23:12)
[2020-06-29] MEDS: metoPROLOL SUCCINATE 25 MG TAB.SR.24H (FP) PO SCH (09:19)
[2020-06-29 11:03] LABS: ANISOCYTOSIS 0; HELMET CELLS 0; HOWELL-JOLLY BODIES 0; MACROCYTOSIS 0; OVALOCYTE 0; PLATELET ESTIMATE DECREASED; ROULEAU 0; SICKELED CELLS 0; TARGET CELLS 0; TEAR DROP CELLS 0; TOXIC GRANULATION 0
[2020-06-29] MEDS: REMDESIVIR 100 MG in SODIUM CHLORIDE 230 ML IVPB SCH (14:13)
[2020-06-29] MEDS ORDERED: PT OWN MED DRAWER 7, Y5N ONE (23:11)
[2020-06-29] MEDS: ROSUVASTATIN CA 10 MG TABLET (FP) PO SCH (23:12)
[2020-06-29] MEDS: DIVALPROEX NA *ER* EXTEND REL 250 MG TABLET.SA PO SCH (23:12)
[2020-06-30] MEDS: LEVOTHYROXINE NA 100 MCG TABLET (FP) PO SCH (07:11)
[2020-06-30] MEDS ORDERED: PT OWN MED DRAWER 7, Y5N ONE (08:34)
[2020-06-30] MEDS: CALCIUM CARBONATE SUSPENSION - 500 MG/5 ML ML PO SCH (09:28)
[2020-06-30] MEDS: ASCORBIC ACID 500 MG TABLET (FP) PO SCH (09:29)
[2020-06-30] MEDS: DIVALPROEX NA *ER* EXTEND REL 500 MG TABLET.SA (FP) PO SCH ×2 (09:29→21:44)
[2020-06-30] MEDS: MULTIVITAMINS THER W-MINERALS COMBO TABLET (FP) PO SCH (09:29)
[2020-06-30] MEDS: metoPROLOL SUCCINATE 25 MG TAB.SR.24H (FP) PO SCH (09:29)
[2020-06-30] MEDS: levETIRAcetam 500 MG TABLET (FP) PO SCH ×2 (09:29→21:43)
[2020-06-30] MEDS: DEXAMETHASONE SOD PHOSPHATE 10 MG/1 ML VIAL IVPUSH SCH (09:29)
[2020-06-30] MEDS: PANTOPRAZOLE 40 MG TABLET PO SCH (09:30)
[2020-06-30] MEDS: VALSARTAN 40 MG TABLET PO SCH (09:30)
[2020-06-30 17:56] LABS: BASO % 0.1 % (0-2.0); EOS % 0.1 % (0-4.5); HEMATOCRIT 32.9 % (32.4-45.2); HEMOGLOBIN 11.4 GM/dL (10.7-15.3); LYMPH % 42.8 % (8-40); MCH 34.8 pg (25.7-33.7); MCHC 34.7 g/dl (32.0-36.0); MEAN CELL VOLUME 100.3 fl (80-96); MEAN PLT VOLUME 7.9 fl (7.5-11.1); MONO % 12.4 % (3.8-10.2); NEUT % 44.6 % (42.8-82.8); PLATELET COUNT 180 K/MM3 (134-434); RBC 3.28 M/mm3 (3.60-5.2); RDW 13.6 % (11.6-15.6); WHITE BLOOD COUNT 12.5 K/mm3 (4.0-10.0)
[2020-06-30 18:54] LABS: ANISOCYTOSIS 1+; MACROCYTOSIS 1+; PLATELET ESTIMATE NORMAL
[2020-06-30] MEDS: ROSUVASTATIN CA 10 MG TABLET (FP) PO SCH (21:42)
[2020-06-30] MEDS: DIVALPROEX NA *ER* EXTEND REL 250 MG TABLET.SA PO SCH (21:43)
[2020-07-01] MEDS: LEVOTHYROXINE NA 100 MCG TABLET (FP) PO SCH (06:46)
[2020-07-01] MEDS ORDERED: PT OWN MED DRAWER 7, Y5N ONE (08:55)
[2020-07-01] MEDS: ASCORBIC ACID 500 MG TABLET (FP) PO SCH (09:03)
[2020-07-01] MEDS: PANTOPRAZOLE 40 MG TABLET PO SCH (09:03)
[2020-07-01] MEDS: DIVALPROEX NA *ER* EXTEND REL 500 MG TABLET.SA (FP) PO SCH (09:03)
[2020-07-01] MEDS: VALSARTAN 40 MG TABLET PO SCH (09:03)
[2020-07-01] MEDS: MULTIVITAMINS THER W-MINERALS COMBO TABLET (FP) PO SCH (09:03)
[2020-07-01] MEDS: DEXAMETHASONE SOD PHOSPHATE 10 MG/1 ML VIAL IVPUSH SCH (09:04)
[2020-07-01] MEDS: levETIRAcetam 500 MG TABLET (FP) PO SCH (09:04)
[2020-07-01] MEDS: CALCIUM CARBONATE SUSPENSION - 500 MG/5 ML ML PO SCH (09:05)
[2020-07-01 18:11] VITALS: BP 102/58; PULSE 58; TEMP 98.5
[2020-07-02] MEDS ORDERED: ERGOCALCIFEROL (VIT D2) 50,000 UNIT (1.25 MG) CAPSULE PO SCH (10:00)
== END 2020-07-01 20:28 | disposition home or self-care (01) | DRG 177 ==
LOC: JER 18:09 → JERBED 23:27 → OBSVTOIN 06-23 03:54 → J4W 06-23 13:31
PROVIDERS: ADMIT Internal Medicine
PROC: XW033E5 Introduction of Remdesivir Anti-infective into Peripheral Vein, Percutaneous Approach, New Technology Group 5 (ICD-10-PCS; principal; 2020-06-25)
DX: U07.1 COVID-19 (principal); J12.82 Pneumonia due to coronavirus disease 2019; I50.32 Chronic diastolic (congestive) heart failure; R42 Dizziness and giddiness; I10 Essential (primary) hypertension; E66.9 Obesity, unspecified; Z68.32 Body mass index [BMI] 32.0-32.9, adult; G40.909 Epilepsy, unspecified, not intractable, without status epilepticus; E03.9 Hypothyroidism, unspecified; M81.0 Age-related osteoporosis without current pathological fracture; I11.0 Hypertensive heart disease with heart failure; F32.9 Major depressive disorder, single episode, unspecified; J33.8 Other polyp of sinus; N28.1 Cyst of kidney, acquired; N85.8 Other specified noninflammatory disorders of uterus; S06.0X0A Concussion without loss of consciousness, initial encounter; R41.82 Altered mental status, unspecified; D69.6 Thrombocytopenia, unspecified; H93.293 Other abnormal auditory perceptions, bilateral; I25.10 Atherosclerotic heart disease of native coronary artery without angina pectoris; W18.39XA Other fall on same level, initial encounter; Y92.098 Other place in other non-institutional residence as the place of occurrence of the external cause
CPT/HCPCS: 36415; 70450-TC; 71045-TC-FY; 71250-TC; 72125-TC; 73523-TC-FY; 74177-TC; 80053; 80061; 80164; 80177; 81003; 82550; 82607; 82728; 83036; 83615; 83690; 83721; 83735; 83880; 84100; 84443; 84484; 85025; 85379; 85610; 85730; 86140; 86769; 86780; 87086; 93005; 93010; 93880-TC; 93970-TC; 94761; 97116-GP; 97162-GP; 99285-25; C9399; C9803; G0378; J0131; J1100; Q9967; U0003

== ENCOUNTER 2020-08-09 18:46 | Inpatient (IN) | payer MEDICARE, OTHER ==
[2020-08-09 20:34] LABS: BASO % 0.4 % (0-2.0); HEMATOCRIT 36.8 % (32.4-45.2); HEMOGLOBIN 12.6 GM/dL (10.7-15.3); LYMPH % 45.3 % (8-40); MCH 35.1 pg (25.7-33.7); MCHC 34.3 g/dl (32.0-36.0); MEAN CELL VOLUME 102.3 fl (80-96); MEAN PLT VOLUME 6.7 fl (7.5-11.1); MONO % 11.2 % (3.8-10.2); NEUT % 43.1 % (42.8-82.8); PLATELET COUNT 141 K/MM3 (134-434); RDW 13.8 % (11.6-15.6); WHITE BLOOD COUNT 8.2 K/mm3 (4.0-10.0)
[2020-08-09 20:43] LABS: INR 1.08 (0.83-1.09)
[2020-08-09 20:45] LABS: ACTIVATED PTT 26.6 SECONDS (25.2-36.5)
[2020-08-09 21:00] LABS: CHLORIDE 102 mmol/L (98-107); SODIUM 137 mmol/L (136-145)
[2020-08-09 21:02] LABS: CALCIUM 8.9 mg/dL (8.5-10.1)
[2020-08-09 21:03] LABS: ALBUMIN 3.3 g/dl (3.4-5.0); ANION GAP 7 MMOL/L (8-16); BLOOD UREA NITROGEN 27.6 mg/dL (7-18); CO2 28 mmol/L (21-32); GLUCOSE,RANDOM 94 mg/dL (74-106); MAGNESIUM 2.4 mg/dL (1.8-2.4)
[2020-08-09 21:06] LABS: PHOSPHOROUS 4.5 mg/dL (2.5-4.9); SGOT/AST 11 U/L (15-37); SGPT/ALT 7 U/L (13-61)
[2020-08-09 21:09] LABS: ALK PHOS 52 U/L (45-117); BILIRUBIN,TOTAL 0.9 mg/dL (0.2-1); TOT PROT 7.2 g/dl (6.4-8.2)
[2020-08-09 21:11] LABS: N-TERMINAL BNP 281.2 pg/ml (5-125)
[2020-08-09 22:48] LABS: URINE APPEARANCE CLEAR; URINE BILIRUBIN NEGATIVE (NEGATIVE); URINE COLOR DK YELLOW; URINE GLUCOSE (UA) NEGATIVE (NEGATIVE); URINE KETONE TRACE (NEGATIVE); URINE LEUK ESTERASE NEGATIVE (NEGATIVE); URINE NITRITE NEGATIVE (NEGATIVE); URINE PROTEIN NEGATIVE (NEGATIVE); URINE UROBILINOGEN 0.2 mg/dL (0.2-1.0)
[2020-08-09] MEDS ORDERED: VANCOMYCIN 1 GM in D5W (PRE-DOCKED) 1,000 MG/250 ML IVPB ONE (23:35)
[2020-08-09] MEDS ORDERED: VANCOMYCIN 1 GRAM (PRE-DOCKED) 1,000 MG/250 ML BAG IVPB ONE (23:54)
[2020-08-10] MEDS ORDERED: FUROSEMIDE 40 MG/4 ML INJECTABLE VIAL IVPUSH ONE (01:52)
[2020-08-10] MEDS ORDERED: NAFCILLIN IVPB SCH (04:30)
[2020-08-10] MEDS ORDERED: DEXTROSE 5% IVPB SCH (04:30)
[2020-08-10] MEDS ORDERED: WATER IVPB SCH (04:30)
[2020-08-10] MEDS: DEXTROSE 5% IVPB SCH ×4 (08:52→21:48)
[2020-08-10] MEDS: NAFCILLIN IVPB SCH ×4 (08:52→21:48)
[2020-08-10] MEDS: WATER IVPB SCH ×4 (08:52→21:48)
[2020-08-10] MEDS ORDERED: PT OWN MED DRAWER 7, Y5N ONE ×6 (09:41→21:26)
[2020-08-10] MEDS: ENOXAPARIN NA (PORCINE) 40 MG/0.4 ML DISP.SYRIN SQ SCH (09:51)
[2020-08-10] MEDS: PANTOPRAZOLE 40 MG TABLET PO SCH (09:51)
[2020-08-10] MEDS: levETIRAcetam 500 MG TABLET (FP) PO SCH ×2 (09:51→21:47)
[2020-08-10] MEDS ORDERED: DIVALPROEX NA *ER* EXTEND REL 500 MG TABLET.SA (FP) PO SCH (10:00)
[2020-08-10] MEDS: DIVALPROEX NA *ER* EXTEND REL 500 MG TABLET.SA (FP) PO SCH (10:24)
[2020-08-10] MEDS: DIVALPROEX *ER* 500 MG, DIVALPROEX *ER* 250 MG PO SCH (21:49)
[2020-08-10] MEDS ORDERED: DIVALPROEX NA *ER* EXTEND REL 250 MG TABLET.SA PO SCH (22:00)
[2020-08-11] MEDS ORDERED: PT OWN MED DRAWER 7, Y5N ONE ×2 (04:37→20:52)
[2020-08-11] MEDS: DEXTROSE 5% IVPB SCH ×2 (04:40→09:40)
[2020-08-11] MEDS: WATER IVPB SCH ×2 (04:40→09:40)
[2020-08-11] MEDS: NAFCILLIN IVPB SCH ×2 (04:40→09:40)
[2020-08-11] MEDS: PANTOPRAZOLE 40 MG TABLET PO SCH (09:40)
[2020-08-11] MEDS: ENOXAPARIN NA (PORCINE) 40 MG/0.4 ML DISP.SYRIN SQ SCH (09:40)
[2020-08-11] MEDS: levETIRAcetam 500 MG TABLET (FP) PO SCH ×2 (09:41→22:19)
[2020-08-11] MEDS ORDERED: FUROSEMIDE 40 MG/4 ML INJECTABLE VIAL IVPUSH SCH (10:00)
[2020-08-11 10:34] LABS: BASO % 0.4 % (0-2.0); HEMATOCRIT 35.5 % (32.4-45.2); HEMOGLOBIN 12.2 GM/dL (10.7-15.3); LYMPH % 31.8 % (8-40); MCHC 34.5 g/dl (32.0-36.0); MEAN CELL VOLUME 101.6 fl (80-96); MEAN PLT VOLUME 7.6 fl (7.5-11.1); MONO % 15.8 % (3.8-10.2); PLATELET COUNT 134 K/MM3 (134-434); RBC 3.49 M/mm3 (3.60-5.2); RDW 13.8 % (11.6-15.6)
[2020-08-11 10:39] LABS: CALCIUM 8.2 mg/dL (8.5-10.1)
[2020-08-11 10:40] LABS: BLOOD UREA NITROGEN 43.6 mg/dL (7-18); MAGNESIUM 2.4 mg/dL (1.8-2.4)
[2020-08-11 10:43] LABS: PHOSPHOROUS 4.1 mg/dL (2.5-4.9)
[2020-08-11 10:44] LABS: BILIRUBIN,TOTAL 1.3 mg/dL (0.2-1); TOT PROT 5.7 g/dl (6.4-8.2)
[2020-08-11 10:50] LABS: ALBUMIN 2.6 g/dl (3.4-5.0)
[2020-08-11] MEDS: DIVALPROEX NA *ER* EXTEND REL 500 MG TABLET.SA (FP) PO SCH (11:00)
[2020-08-11] MEDS ORDERED: PIPERACILLIN/TAZOBACTAM 3.375 GM VIAL IVPB ONE (17:17)
[2020-08-11] MEDS ORDERED: DEXTROSE 5%-WATER - 50 ML IVPB ONE (17:18)
[2020-08-11] MEDS: PIPERACILLIN/TAZOB 3.375 GM 3.375 GM in DEXTROSE 5%-WATER - 50 ML IVPB SCH (17:24)
[2020-08-11] MEDS: DIVALPROEX *ER* 500 MG, DIVALPROEX *ER* 250 MG PO SCH (22:19)
[2020-08-12] MEDS: PIPERACILLIN/TAZOB 3.375 GM 3.375 GM in DEXTROSE 5%-WATER - 50 ML IVPB SCH ×3 (01:50→17:21)
[2020-08-12] MEDS ORDERED: PIPERACILLIN/TAZOBACTAM 3.375 GM VIAL IVPB ONE ×3 (02:02→17:15)
[2020-08-12] MEDS ORDERED: DEXTROSE 5%-WATER - 50 ML IVPB ONE ×3 (02:02→17:15)
[2020-08-12] MEDS ORDERED: LEVOTHYROXINE NA 100 MCG TABLET (FP) PO SCH (07:00)
[2020-08-12 09:15] LABS: BASO % 0.3 % (0-2.0); HEMATOCRIT 34.3 % (32.4-45.2); HEMOGLOBIN 11.9 GM/dL (10.7-15.3); LYMPH % 27.9 % (8-40); MCH 34.7 pg (25.7-33.7); MCHC 34.6 g/dl (32.0-36.0); MEAN CELL VOLUME 100.3 fl (80-96); MEAN PLT VOLUME 7.2 fl (7.5-11.1); NEUT % 54.8 % (42.8-82.8); PLATELET COUNT 184 K/MM3 (134-434); RBC 3.42 M/mm3 (3.60-5.2); RDW 13.9 % (11.6-15.6); WHITE BLOOD COUNT 11.2 K/mm3 (4.0-10.0)
[2020-08-12 09:46] LABS: TOT PROT 5.8 g/dl (6.4-8.2)
[2020-08-12 09:47] LABS: BILIRUBIN,TOTAL 0.9 mg/dL (0.2-1)
[2020-08-12 09:52] LABS: ALBUMIN 2.4 g/dl (3.4-5.0)
[2020-08-12 09:57] LABS: PHOSPHOROUS 3.8 mg/dL (2.5-4.9)
[2020-08-12 09:59] LABS: MAGNESIUM 2.3 mg/dL (1.8-2.4)
[2020-08-12] MEDS ORDERED: PT OWN MED DRAWER 7, Y5N ONE ×4 (10:09→21:31)
[2020-08-12] MEDS: levETIRAcetam 500 MG TABLET (FP) PO SCH ×2 (11:01→11:19)
[2020-08-12] MEDS: FUROSEMIDE 40 MG TABLET (FP) PO SCH ×2 (11:01→11:19)
[2020-08-12] MEDS: ENOXAPARIN NA (PORCINE) 40 MG/0.4 ML DISP.SYRIN SQ SCH (11:01)
[2020-08-12] MEDS: PANTOPRAZOLE 40 MG TABLET PO SCH ×2 (11:01→11:19)
[2020-08-12] MEDS: DIVALPROEX NA *ER* EXTEND REL 500 MG TABLET.SA (FP) PO SCH (11:18)
[2020-08-12] MEDS ORDERED: levETIRAcetam 500 MG/5 ML INJECTION VIAL IVPB ONE (13:15)
[2020-08-12] MEDS ORDERED: levETIRAcetam 500 MG/5 ML INJECTION VIAL IVPB SCH ×2 (14:17→22:00)
[2020-08-12] MEDS: levETIRAcetam 500 MG/5 ML INJECTION VIAL IVPB SCH ×2 (14:37→21:32)
[2020-08-12] MEDS: VALPROATE SODIUM 250 MG/5 ML UNIT DOSE CUP PO SCH ×3 (14:37→21:34)
[2020-08-12] MEDS: FUROSEMIDE 40 MG/4 ML INJECTABLE VIAL IVPUSH SCH (14:39)
[2020-08-13] MEDS ORDERED: DEXTROSE 5%-WATER - 50 ML IVPB ONE ×3 (01:23→17:35)
[2020-08-13] MEDS ORDERED: PIPERACILLIN/TAZOBACTAM 3.375 GM VIAL IVPB ONE ×3 (01:23→17:35)
[2020-08-13] MEDS: PIPERACILLIN/TAZOB 3.375 GM 3.375 GM in DEXTROSE 5%-WATER - 50 ML IVPB SCH ×3 (02:09→17:53)
[2020-08-13 08:53] LABS: BASO % 0.1 % (0-2.0); HEMATOCRIT 31.3 % (32.4-45.2); HEMOGLOBIN 10.9 GM/dL (10.7-15.3); LYMPH % 29.3 % (8-40); MCH 34.9 pg (25.7-33.7); MCHC 34.8 g/dl (32.0-36.0); MEAN CELL VOLUME 100.4 fl (80-96); MEAN PLT VOLUME 7.4 fl (7.5-11.1); MONO % 14.7 % (3.8-10.2); NEUT % 55.9 % (42.8-82.8); PLATELET COUNT 203 K/MM3 (134-434); RBC 3.12 M/mm3 (3.60-5.2); RDW 13.6 % (11.6-15.6); WHITE BLOOD COUNT 10.8 K/mm3 (4.0-10.0)
[2020-08-13] MEDS ORDERED: PT OWN MED DRAWER 7, Y5N ONE ×2 (09:12→21:14)
[2020-08-13 09:25] LABS: ALBUMIN 2.3 g/dl (3.4-5.0); CALCIUM 8.2 mg/dL (8.5-10.1)
[2020-08-13 09:26] LABS: BILIRUBIN,TOTAL 0.7 mg/dL (0.2-1); BLOOD UREA NITROGEN 36.8 mg/dL (7-18); MAGNESIUM 2.3 mg/dL (1.8-2.4); TOT PROT 5.6 g/dl (6.4-8.2)
[2020-08-13 09:29] LABS: CREATININE 0.8 mg/dL (0.55-1.3)
[2020-08-13] MEDS: levETIRAcetam 500 MG/5 ML INJECTION VIAL IVPB SCH ×3 (09:43→22:24)
[2020-08-13] MEDS: FUROSEMIDE 40 MG/4 ML INJECTABLE VIAL IVPUSH SCH (09:43)
[2020-08-13] MEDS: LEVOTHYROXINE SODIUM 100 MCG VIAL IVPUSH SCH (09:43)
[2020-08-13] MEDS: ENOXAPARIN NA (PORCINE) 40 MG/0.4 ML DISP.SYRIN SQ SCH (09:44)
[2020-08-13] MEDS: VALPROATE SODIUM 250 MG/5 ML UNIT DOSE CUP PO SCH ×5 (09:45→23:00)
[2020-08-13] MEDS ORDERED: KCL 10 MEQ IVPB 10 MEQ/100 ML INFUS.BAG IVPB SCH (09:45)
[2020-08-13] MEDS: PANTOPRAZOLE SODIUM 40 MG VIAL IVPUSH SCH (09:54)
[2020-08-13] MEDS ORDERED: LEVOTHYROXINE SODIUM 100 MCG VIAL IVPUSH SCH (10:00)
[2020-08-13] MEDS: AMINO ACIDS/PROTEIN HYDROLYS 30 ML LIQUID.PKT PO SCH (17:53)
[2020-08-13] MEDS ORDERED: levETIRAcetam 500 MG TABLET (FP) PO ONE (22:12)
[2020-08-14] MEDS ORDERED: DEXTROSE 5%-WATER - 50 ML IVPB ONE ×3 (02:18→18:14)
[2020-08-14] MEDS ORDERED: PIPERACILLIN/TAZOBACTAM 3.375 GM VIAL IVPB ONE ×3 (02:18→18:14)
[2020-08-14] MEDS: PIPERACILLIN/TAZOB 3.375 GM 3.375 GM in DEXTROSE 5%-WATER - 50 ML IVPB SCH ×3 (02:25→18:16)
[2020-08-14 08:42] LABS: BASO % 0.1 % (0-2.0); HEMATOCRIT 29.8 % (32.4-45.2); HEMOGLOBIN 10.3 GM/dL (10.7-15.3); LYMPH % 32.7 % (8-40); MCH 34.7 pg (25.7-33.7); MCHC 34.7 g/dl (32.0-36.0); MEAN PLT VOLUME 7.4 fl (7.5-11.1); MONO % 15.3 % (3.8-10.2); NEUT % 51.9 % (42.8-82.8); PLATELET COUNT 230 K/MM3 (134-434); RBC 2.98 M/mm3 (3.60-5.2); RDW 13.8 % (11.6-15.6); WHITE BLOOD COUNT 11.2 K/mm3 (4.0-10.0)
[2020-08-14 09:09] LABS: ALBUMIN 2.2 g/dl (3.4-5.0); BLOOD UREA NITROGEN 34.1 mg/dL (7-18); CALCIUM 8.6 mg/dL (8.5-10.1); MAGNESIUM 2.4 mg/dL (1.8-2.4)
[2020-08-14 09:11] LABS: CREATININE 0.6 mg/dL (0.55-1.3); PHOSPHOROUS 2.3 mg/dL (2.5-4.9)
[2020-08-14 09:12] LABS: BILIRUBIN,TOTAL 0.4 mg/dL (0.2-1); TOT PROT 5.5 g/dl (6.4-8.2)
[2020-08-14] MEDS ORDERED: PT OWN MED DRAWER 7, Y5N ONE (10:06)
[2020-08-14] MEDS: VALPROATE SODIUM 250 MG/5 ML UNIT DOSE CUP PO SCH ×3 (10:11→22:31)
[2020-08-14] MEDS: ENOXAPARIN NA (PORCINE) 40 MG/0.4 ML DISP.SYRIN SQ SCH (10:11)
[2020-08-14] MEDS: FUROSEMIDE 40 MG/4 ML INJECTABLE VIAL IVPUSH SCH (10:12)
[2020-08-14] MEDS: LEVOTHYROXINE SODIUM 100 MCG VIAL IVPUSH SCH (10:12)
[2020-08-14] MEDS: MULTIVITAMINS THER W-MINERALS COMBO TABLET (FP) PO SCH (10:12)
[2020-08-14] MEDS: PANTOPRAZOLE SODIUM 40 MG VIAL IVPUSH SCH (10:12)
[2020-08-14] MEDS: levETIRAcetam 500 MG/5 ML INJECTION VIAL IVPB SCH ×2 (10:15→22:30)
[2020-08-14] MEDS: AMINO ACIDS/PROTEIN HYDROLYS 30 ML LIQUID.PKT PO SCH ×2 (10:15→18:10)
[2020-08-14] MEDS ORDERED: NAPH,MB-DB/K PH,MBDB POWDER PACKET PO ONE (12:37)
[2020-08-14] MEDS: VALSARTAN 40 MG TABLET PO SCH (12:46)
[2020-08-14] MEDS: KCL 10 MEQ IVPB 10 MEQ/100 ML INFUS.BAG IVPB SCH ×3 (15:20→19:44)
[2020-08-14] MEDS: ROSUVASTATIN CA 5 MG TABLET (FP) PO SCH (22:30)
[2020-08-15] MEDS ORDERED: DEXTROSE 5%-WATER - 50 ML IVPB ONE ×3 (01:33→17:25)
[2020-08-15] MEDS ORDERED: PIPERACILLIN/TAZOBACTAM 3.375 GM VIAL IVPB ONE ×3 (01:33→17:25)
[2020-08-15] MEDS: PIPERACILLIN/TAZOB 3.375 GM 3.375 GM in DEXTROSE 5%-WATER - 50 ML IVPB SCH ×3 (01:42→17:37)
[2020-08-15] MEDS ORDERED: levETIRAcetam 500 MG/5 ML INJECTION VIAL IVPB SCH (08:00)
[2020-08-15 08:47] LABS: BASO % 0.2 % (0-2.0); HEMATOCRIT 28.2 % (32.4-45.2); LYMPH % 32.2 % (8-40); MCH 35.1 pg (25.7-33.7); MCHC 35.3 g/dl (32.0-36.0); MEAN CELL VOLUME 99.3 fl (80-96); MEAN PLT VOLUME 7.2 fl (7.5-11.1); MONO % 16.2 % (3.8-10.2); NEUT % 51.4 % (42.8-82.8); PLATELET COUNT 278 K/MM3 (134-434); RBC 2.84 M/mm3 (3.60-5.2); RDW 13.6 % (11.6-15.6); WHITE BLOOD COUNT 9.6 K/mm3 (4.0-10.0)
[2020-08-15 09:12] LABS: CALCIUM 8.7 mg/dL (8.5-10.1)
[2020-08-15 09:13] LABS: ALBUMIN 2.2 g/dl (3.4-5.0); MAGNESIUM 2.3 mg/dL (1.8-2.4)
[2020-08-15 09:14] LABS: BLOOD UREA NITROGEN 51.5 mg/dL (7-18)
[2020-08-15 09:18] LABS: BILIRUBIN,TOTAL 0.5 mg/dL (0.2-1); PHOSPHOROUS 2.8 mg/dL (2.5-4.9); TOT PROT 5.2 g/dl (6.4-8.2)
[2020-08-15] MEDS ORDERED: PT OWN MED DRAWER 7, Y5N ONE ×2 (09:56→21:13)
[2020-08-15] MEDS ORDERED: POTASSIUM CHLORIDE ORAL LIQUID 20 MEQ/15 ML PO SCH (10:00)
[2020-08-15] MEDS: AMINO ACIDS/PROTEIN HYDROLYS 30 ML LIQUID.PKT PO SCH ×2 (10:01→17:31)
[2020-08-15] MEDS: VALSARTAN 40 MG TABLET PO SCH (10:01)
[2020-08-15] MEDS: FUROSEMIDE 40 MG/4 ML INJECTABLE VIAL IVPUSH SCH (10:01)
[2020-08-15] MEDS: PANTOPRAZOLE 40 MG TABLET PO SCH (10:02)
[2020-08-15] MEDS: levETIRAcetam 500 MG TABLET (FP) PO SCH ×2 (10:02→21:14)
[2020-08-15] MEDS: MULTIVITAMINS THER W-MINERALS COMBO TABLET (FP) PO SCH (10:02)
[2020-08-15] MEDS: ENOXAPARIN NA (PORCINE) 40 MG/0.4 ML DISP.SYRIN SQ SCH (10:02)
[2020-08-15] MEDS: NAPH,MB-DB/K PH,MBDB POWDER PACKET PO SCH ×2 (12:30→21:14)
[2020-08-15] MEDS ORDERED: KCL 10 MEQ IVPB 10 MEQ/100 ML INFUS.BAG IVPB SCH ×2 (13:00→21:45)
[2020-08-15] MEDS: KCL 10 MEQ IVPB 10 MEQ/100 ML INFUS.BAG IVPB SCH ×2 (18:17→22:30)
[2020-08-15] MEDS: VALPROATE SODIUM 250 MG/5 ML UNIT DOSE CUP PO SCH ×2 (18:24→21:14)
[2020-08-15] MEDS: ROSUVASTATIN CA 5 MG TABLET (FP) PO SCH (21:14)
[2020-08-15] MEDS: ACETAMINOPHEN 325 MG TABLET (FP) PO PRN (21:15)
[2020-08-16] MEDS ORDERED: PIPERACILLIN/TAZOBACTAM 3.375 GM VIAL IVPB ONE ×3 (01:22→17:43)
[2020-08-16] MEDS ORDERED: DEXTROSE 5%-WATER - 50 ML IVPB ONE ×3 (01:22→17:43)
[2020-08-16] MEDS: PIPERACILLIN/TAZOB 3.375 GM 3.375 GM in DEXTROSE 5%-WATER - 50 ML IVPB SCH ×3 (01:27→17:47)
[2020-08-16] MEDS: LEVOTHYROXINE NA 100 MCG TABLET (FP) PO SCH (06:35)
[2020-08-16] MEDS: VALPROATE SODIUM 250 MG/5 ML UNIT DOSE CUP PO SCH ×3 (06:37→21:13)
[2020-08-16] MEDS: ACETAMINOPHEN 325 MG TABLET (FP) PO PRN ×2 (07:12→19:35)
[2020-08-16] MEDS: AMINO ACIDS/PROTEIN HYDROLYS 30 ML LIQUID.PKT PO SCH ×2 (08:39→17:46)
[2020-08-16 09:32] LABS: BASO % 0.3 % (0-2.0); HEMATOCRIT 28.9 % (32.4-45.2); HEMOGLOBIN 10.1 GM/dL (10.7-15.3); LYMPH % 34.6 % (8-40); MCH 34.9 pg (25.7-33.7); MEAN CELL VOLUME 99.8 fl (80-96); MEAN PLT VOLUME 7.3 fl (7.5-11.1); MONO % 18.3 % (3.8-10.2); NEUT % 46.8 % (42.8-82.8); PLATELET COUNT 330 K/MM3 (134-434); RDW 13.6 % (11.6-15.6); WHITE BLOOD COUNT 11.6 K/mm3 (4.0-10.0)
[2020-08-16] MEDS ORDERED: PT OWN MED DRAWER 7, Y5N ONE ×6 (10:01→19:32)
[2020-08-16 10:03] LABS: ALBUMIN 2.4 g/dl (3.4-5.0); BLOOD UREA NITROGEN 40.1 mg/dL (7-18); CALCIUM 8.7 mg/dL (8.5-10.1); MAGNESIUM 2.2 mg/dL (1.8-2.4)
[2020-08-16 10:05] LABS: CREATININE 0.7 mg/dL (0.55-1.3)
[2020-08-16 10:06] LABS: PHOSPHOROUS 3.8 mg/dL (2.5-4.9)
[2020-08-16] MEDS: levETIRAcetam 500 MG TABLET (FP) PO SCH ×2 (10:07→21:13)
[2020-08-16 10:08] LABS: BILIRUBIN,TOTAL 0.5 mg/dL (0.2-1); TOT PROT 5.5 g/dl (6.4-8.2)
[2020-08-16] MEDS: MULTIVITAMINS THER W-MINERALS COMBO TABLET (FP) PO SCH (10:08)
[2020-08-16] MEDS: NAPH,MB-DB/K PH,MBDB POWDER PACKET PO SCH (10:08)
[2020-08-16] MEDS: PANTOPRAZOLE 40 MG TABLET PO SCH (10:08)
[2020-08-16] MEDS: FUROSEMIDE 40 MG/4 ML INJECTABLE VIAL IVPUSH SCH (10:10)
[2020-08-16] MEDS: ENOXAPARIN NA (PORCINE) 40 MG/0.4 ML DISP.SYRIN SQ SCH (10:12)
[2020-08-16] MEDS: VALSARTAN 40 MG TABLET PO SCH (10:28)
[2020-08-16 10:51] LABS: ANISOCYTOSIS 0; MACROCYTOSIS 0; PLATELET ESTIMATE NORMAL
[2020-08-16] MEDS: ROSUVASTATIN CA 5 MG TABLET (FP) PO SCH (21:13)
[2020-08-17] MEDS: ACETAMINOPHEN 325 MG TABLET (FP) PO PRN ×3 (00:13→22:01)
[2020-08-17] MEDS ORDERED: DEXTROSE 5%-WATER - 50 ML IVPB ONE ×3 (01:09→17:30)
[2020-08-17] MEDS ORDERED: PIPERACILLIN/TAZOBACTAM 3.375 GM VIAL IVPB ONE ×3 (01:09→17:29)
[2020-08-17] MEDS: PIPERACILLIN/TAZOB 3.375 GM 3.375 GM in DEXTROSE 5%-WATER - 50 ML IVPB SCH ×3 (01:12→17:33)
[2020-08-17] MEDS ORDERED: PT OWN MED DRAWER 7, Y5N ONE ×3 (05:55→17:29)
[2020-08-17] MEDS: VALPROATE SODIUM 250 MG/5 ML UNIT DOSE CUP PO SCH ×3 (07:04→22:03)
[2020-08-17] MEDS: LEVOTHYROXINE NA 100 MCG TABLET (FP) PO SCH (07:05)
[2020-08-17] MEDS: AMINO ACIDS/PROTEIN HYDROLYS 30 ML LIQUID.PKT PO SCH ×2 (08:00→17:33)
[2020-08-17] MEDS: VALSARTAN 40 MG TABLET PO SCH (10:01)
[2020-08-17 10:02] LABS: BASO % 0.2 % (0-2.0); HEMATOCRIT 30.2 % (32.4-45.2); HEMOGLOBIN 10.3 GM/dL (10.7-15.3); LYMPH % 36.7 % (8-40); MCH 34.3 pg (25.7-33.7); MCHC 34.1 g/dl (32.0-36.0); MEAN CELL VOLUME 100.5 fl (80-96); MEAN PLT VOLUME 7.2 fl (7.5-11.1); MONO % 19.3 % (3.8-10.2); NEUT % 43.8 % (42.8-82.8); PLATELET COUNT 363 K/MM3 (134-434); RBC 3.01 M/mm3 (3.60-5.2); RDW 13.8 % (11.6-15.6); WHITE BLOOD COUNT 13.3 K/mm3 (4.0-10.0)
[2020-08-17] MEDS: MULTIVITAMINS THER W-MINERALS COMBO TABLET (FP) PO SCH (10:02)
[2020-08-17] MEDS: PANTOPRAZOLE 40 MG TABLET PO SCH (10:02)
[2020-08-17] MEDS: levETIRAcetam 500 MG TABLET (FP) PO SCH ×2 (10:02→22:01)
[2020-08-17] MEDS: FUROSEMIDE 40 MG/4 ML INJECTABLE VIAL IVPUSH SCH (10:05)
[2020-08-17] MEDS: ENOXAPARIN NA (PORCINE) 40 MG/0.4 ML DISP.SYRIN SQ SCH (10:06)
[2020-08-17 10:22] LABS: ALBUMIN 2.6 g/dl (3.4-5.0); BLOOD UREA NITROGEN 31.5 mg/dL (7-18); MAGNESIUM 2.3 mg/dL (1.8-2.4)
[2020-08-17 10:24] LABS: CREATININE 0.6 mg/dL (0.55-1.3); PHOSPHOROUS 3.9 mg/dL (2.5-4.9)
[2020-08-17 10:26] LABS: BILIRUBIN,TOTAL 0.9 mg/dL (0.2-1); TOT PROT 5.9 g/dl (6.4-8.2)
[2020-08-17 11:08] LABS: ANISOCYTOSIS 1+; MACROCYTOSIS 0; PLATELET ESTIMATE NORMAL
[2020-08-17] MEDS: ROSUVASTATIN CA 5 MG TABLET (FP) PO SCH (22:01)
[2020-08-17 23:52] LABS: PH,URINE 7.5 (5.0-8.0); URINE APPEARANCE CLEAR; URINE BILIRUBIN NEGATIVE (NEGATIVE); URINE COLOR DK YELLOW; URINE GLUCOSE (UA) NEGATIVE (NEGATIVE); URINE KETONE TRACE (NEGATIVE); URINE LEUK ESTERASE NEGATIVE (NEGATIVE); URINE NITRITE NEGATIVE (NEGATIVE); URINE PROTEIN TRACE (NEGATIVE); URINE UROBILINOGEN 0.2 mg/dL (0.2-1.0)
[2020-08-18] MEDS ORDERED: PIPERACILLIN/TAZOBACTAM 3.375 GM VIAL IVPB ONE ×3 (01:17→17:22)
[2020-08-18] MEDS ORDERED: DEXTROSE 5%-WATER - 50 ML IVPB ONE ×3 (01:17→17:22)
[2020-08-18] MEDS: PIPERACILLIN/TAZOB 3.375 GM 3.375 GM in DEXTROSE 5%-WATER - 50 ML IVPB SCH ×2 (01:38→10:27)
[2020-08-18] MEDS: VALPROATE SODIUM 250 MG/5 ML UNIT DOSE CUP PO SCH ×3 (06:22→21:07)
[2020-08-18] MEDS: LEVOTHYROXINE NA 100 MCG TABLET (FP) PO SCH (06:23)
[2020-08-18 09:50] LABS: BASO % 0.3 % (0-2.0); HEMATOCRIT 30.3 % (32.4-45.2); HEMOGLOBIN 10.4 GM/dL (10.7-15.3); LYMPH % 38.2 % (8-40); MCH 34.8 pg (25.7-33.7); MCHC 34.2 g/dl (32.0-36.0); MEAN CELL VOLUME 101.7 fl (80-96); MEAN PLT VOLUME 7.1 fl (7.5-11.1); MONO % 20.1 % (3.8-10.2); NEUT % 41.4 % (42.8-82.8); PLATELET COUNT 380 K/MM3 (134-434); RBC 2.98 M/mm3 (3.60-5.2); RDW 13.9 % (11.6-15.6); WHITE BLOOD COUNT 10.5 K/mm3 (4.0-10.0)
[2020-08-18] MEDS ORDERED: PT OWN MED DRAWER 7, Y5N ONE ×3 (10:23→17:42)
[2020-08-18 10:25] LABS: ALBUMIN 2.5 g/dl (3.4-5.0); BLOOD UREA NITROGEN 38.4 mg/dL (7-18); CALCIUM 8.9 mg/dL (8.5-10.1); MAGNESIUM 2.4 mg/dL (1.8-2.4)
[2020-08-18] MEDS: ENOXAPARIN NA (PORCINE) 40 MG/0.4 ML DISP.SYRIN SQ SCH (10:26)
[2020-08-18] MEDS: AMINO ACIDS/PROTEIN HYDROLYS 30 ML LIQUID.PKT PO SCH ×2 (10:26→17:25)
[2020-08-18] MEDS: levETIRAcetam 500 MG TABLET (FP) PO SCH ×2 (10:26→21:07)
[2020-08-18] MEDS: FUROSEMIDE 20 MG TABLET (FP) PO SCH (10:26)
[2020-08-18] MEDS: VALSARTAN 40 MG TABLET PO SCH (10:27)
[2020-08-18] MEDS: PANTOPRAZOLE 40 MG TABLET PO SCH (10:27)
[2020-08-18] MEDS: MULTIVITAMINS THER W-MINERALS COMBO TABLET (FP) PO SCH (10:27)
[2020-08-18 10:28] LABS: PHOSPHOROUS 4.5 mg/dL (2.5-4.9)
[2020-08-18 10:29] LABS: CREATININE 0.8 mg/dL (0.55-1.3)
[2020-08-18 10:30] LABS: TOT PROT 6.1 g/dl (6.4-8.2)
[2020-08-18 10:31] LABS: BILIRUBIN,TOTAL 0.5 mg/dL (0.2-1)
[2020-08-18 14:01] LABS: ANISOCYTOSIS 1+; MACROCYTOSIS 1+; PLATELET ESTIMATE NORMAL
[2020-08-18 14:31] VITALS: BMI 37.4
[2020-08-18] MEDS: ROSUVASTATIN CA 5 MG TABLET (FP) PO SCH (21:07)
[2020-08-19] MEDS: LEVOTHYROXINE NA 100 MCG TABLET (FP) PO SCH (06:02)
[2020-08-19] MEDS: VALPROATE SODIUM 250 MG/5 ML UNIT DOSE CUP PO SCH ×3 (06:02→21:40)
[2020-08-19 09:00] LABS: BASO % 0.4 % (0-2.0); HEMOGLOBIN 10.1 GM/dL (10.7-15.3); LYMPH % 39.1 % (8-40); MCH 35.1 pg (25.7-33.7); MCHC 34.9 g/dl (32.0-36.0); MEAN CELL VOLUME 100.6 fl (80-96); MEAN PLT VOLUME 6.8 fl (7.5-11.1); MONO % 22.8 % (3.8-10.2); NEUT % 37.7 % (42.8-82.8); PLATELET COUNT 388 K/MM3 (134-434); RBC 2.88 M/mm3 (3.60-5.2); RDW 14.1 % (11.6-15.6); WHITE BLOOD COUNT 11.4 K/mm3 (4.0-10.0)
[2020-08-19 09:22] LABS: ALBUMIN 2.5 g/dl (3.4-5.0); BLOOD UREA NITROGEN 42.2 mg/dL (7-18); CALCIUM 8.4 mg/dL (8.5-10.1)
[2020-08-19 09:23] LABS: MAGNESIUM 2.4 mg/dL (1.8-2.4)
[2020-08-19 09:24] LABS: BILIRUBIN,TOTAL 0.5 mg/dL (0.2-1); TOT PROT 5.8 g/dl (6.4-8.2); URIC ACID 7.7 mg/dL (2.6-7.2)
[2020-08-19 09:25] LABS: CREATININE 0.7 mg/dL (0.55-1.3); PHOSPHOROUS 4.1 mg/dL (2.5-4.9)
[2020-08-19] MEDS ORDERED: PT OWN MED DRAWER 7, Y5N ONE ×2 (10:11→18:33)
[2020-08-19] MEDS: AMINO ACIDS/PROTEIN HYDROLYS 30 ML LIQUID.PKT PO SCH ×2 (10:22→19:35)
[2020-08-19] MEDS: ENOXAPARIN NA (PORCINE) 40 MG/0.4 ML DISP.SYRIN SQ SCH (10:22)
[2020-08-19] MEDS: levETIRAcetam 500 MG TABLET (FP) PO SCH ×2 (10:23→21:40)
[2020-08-19] MEDS: VALSARTAN 40 MG TABLET PO SCH (10:23)
[2020-08-19] MEDS: MULTIVITAMINS THER W-MINERALS COMBO TABLET (FP) PO SCH (10:23)
[2020-08-19] MEDS: FUROSEMIDE 20 MG TABLET (FP) PO SCH (10:23)
[2020-08-19] MEDS: PANTOPRAZOLE 40 MG TABLET PO SCH (10:24)
[2020-08-19] MEDS: ACETAMINOPHEN 325 MG TABLET (FP) PO PRN ×2 (10:48→15:13)
[2020-08-19 12:30] LABS: ANISOCYTOSIS 1+; MACROCYTOSIS 0; PLATELET ESTIMATE NORMAL
[2020-08-19] MEDS ORDERED: DEXTROSE 5%-WATER - 50 ML IVPB ONE ×2 (13:41→18:33)
[2020-08-19] MEDS ORDERED: PIPERACILLIN/TAZOBACTAM 3.375 GM VIAL IVPB ONE ×2 (13:41→18:33)
[2020-08-19] MEDS: PIPERACILLIN/TAZOB 3.375 GM 3.375 GM in DEXTROSE 5%-WATER - 50 ML IVPB SCH ×2 (13:52→19:34)
[2020-08-19] MEDS ORDERED: LIDOCAINE 5% TOPICAL PATCH TP ONE (13:59)
[2020-08-19] MEDS: ROSUVASTATIN CA 5 MG TABLET (FP) PO SCH (21:40)
[2020-08-19] MEDS ORDERED: LIDOCAINE PATCH REMOVAL MC ONE (22:00)
[2020-08-20] MEDS ORDERED: PIPERACILLIN/TAZOBACTAM 3.375 GM VIAL IVPB ONE ×2 (00:53→09:53)
[2020-08-20] MEDS ORDERED: DEXTROSE 5%-WATER - 50 ML IVPB ONE ×2 (00:53→09:53)
[2020-08-20] MEDS: PIPERACILLIN/TAZOB 3.375 GM 3.375 GM in DEXTROSE 5%-WATER - 50 ML IVPB SCH ×2 (01:43→10:06)
[2020-08-20] MEDS: ACETAMINOPHEN 325 MG TABLET (FP) PO PRN ×2 (02:55→21:02)
[2020-08-20] MEDS ORDERED: LIDOCAINE 5% TOPICAL PATCH TP ONE (05:42)
[2020-08-20] MEDS: LEVOTHYROXINE NA 100 MCG TABLET (FP) PO SCH (06:23)
[2020-08-20] MEDS: VALPROATE SODIUM 250 MG/5 ML UNIT DOSE CUP PO SCH ×3 (06:23→21:02)
[2020-08-20 08:52] LABS: BASO % 0.2 % (0-2.0); HEMATOCRIT 28.5 % (32.4-45.2); LYMPH % 35.2 % (8-40); MCH 35.2 pg (25.7-33.7); MCHC 35.1 g/dl (32.0-36.0); MEAN CELL VOLUME 100.2 fl (80-96); MEAN PLT VOLUME 6.9 fl (7.5-11.1); MONO % 20.3 % (3.8-10.2); NEUT % 44.3 % (42.8-82.8); PLATELET COUNT 381 K/MM3 (134-434); RBC 2.85 M/mm3 (3.60-5.2); RDW 14.3 % (11.6-15.6); WHITE BLOOD COUNT 8.6 K/mm3 (4.0-10.0)
[2020-08-20 09:17] LABS: ALBUMIN 2.5 g/dl (3.4-5.0); CALCIUM 8.7 mg/dL (8.5-10.1)
[2020-08-20 09:18] LABS: BLOOD UREA NITROGEN 36.6 mg/dL (7-18); MAGNESIUM 2.6 mg/dL (1.8-2.4)
[2020-08-20 09:21] LABS: CREATININE 0.8 mg/dL (0.55-1.3); PHOSPHOROUS 3.7 mg/dL (2.5-4.9)
[2020-08-20 09:22] LABS: BILIRUBIN,TOTAL 0.4 mg/dL (0.2-1); TOT PROT 5.9 g/dl (6.4-8.2)
[2020-08-20] MEDS: ENOXAPARIN NA (PORCINE) 40 MG/0.4 ML DISP.SYRIN SQ SCH (10:06)
[2020-08-20] MEDS: PANTOPRAZOLE 40 MG TABLET PO SCH (10:07)
[2020-08-20] MEDS: AMINO ACIDS/PROTEIN HYDROLYS 30 ML LIQUID.PKT PO SCH ×2 (10:07→18:20)
[2020-08-20] MEDS: FUROSEMIDE 20 MG TABLET (FP) PO SCH (10:07)
[2020-08-20] MEDS: levETIRAcetam 500 MG TABLET (FP) PO SCH ×2 (10:07→21:02)
[2020-08-20] MEDS: MULTIVITAMINS THER W-MINERALS COMBO TABLET (FP) PO SCH (10:07)
[2020-08-20] MEDS: VALSARTAN 40 MG TABLET PO SCH (10:15)
[2020-08-20 11:13] LABS: ANISOCYTOSIS 0; HELMET CELLS 0; HOWELL-JOLLY BODIES 0; MACROCYTOSIS 0; OVALOCYTE 0; PLATELET ESTIMATE NORMAL; ROULEAU 0; SICKELED CELLS 0; TARGET CELLS 0; TEAR DROP CELLS 0; TOXIC GRANULATION 0
[2020-08-20] MEDS: AMOX TR/POT CLAV 875MG/125MG TABLETS (FP) PO SCH (18:20)
[2020-08-20] MEDS ORDERED: PT OWN MED DRAWER 7, Y5N ONE (20:36)
[2020-08-20] MEDS: ROSUVASTATIN CA 5 MG TABLET (FP) PO SCH (21:02)
[2020-08-20] MEDS ORDERED: LIDOCAINE PATCH REMOVAL MC SCH (22:00)
[2020-08-21] MEDS ORDERED: PT OWN MED DRAWER 7, Y5N ONE (05:50)
[2020-08-21] MEDS: VALPROATE SODIUM 250 MG/5 ML UNIT DOSE CUP PO SCH ×2 (06:34→18:36)
[2020-08-21] MEDS: LEVOTHYROXINE NA 100 MCG TABLET (FP) PO SCH (06:34)
[2020-08-21] MEDS: FUROSEMIDE 20 MG TABLET (FP) PO SCH (09:15)
[2020-08-21] MEDS: AMOX TR/POT CLAV 875MG/125MG TABLETS (FP) PO SCH ×2 (09:15→18:13)
[2020-08-21] MEDS: levETIRAcetam 500 MG TABLET (FP) PO SCH (09:15)
[2020-08-21] MEDS: PANTOPRAZOLE 40 MG TABLET PO SCH (09:15)
[2020-08-21] MEDS: AMINO ACIDS/PROTEIN HYDROLYS 30 ML LIQUID.PKT PO SCH ×2 (09:16→18:13)
[2020-08-21] MEDS: VALSARTAN 40 MG TABLET PO SCH (09:16)
[2020-08-21] MEDS: ENOXAPARIN NA (PORCINE) 40 MG/0.4 ML DISP.SYRIN SQ SCH (09:16)
[2020-08-21] MEDS: MULTIVITAMINS THER W-MINERALS COMBO TABLET (FP) PO SCH (09:17)
[2020-08-21] MEDS: ACETAMINOPHEN 325 MG TABLET (FP) PO PRN (11:53)
[2020-08-21 14:32] VITALS: BP 105/56; PULSE 91; TEMP 98.4
== END 2020-08-21 18:45 | DRG 602 ==
LOC: SUPCPDRO 18:46 → JER 18:46 → JERBED 08-10 00:55 → J8W 08-10 05:17
PROVIDERS: ADMIT Hospitalist; ATTEND Internal Medicine
DX: L03.116 Cellulitis of left lower limb (principal); G93.41 Metabolic encephalopathy; G92 Toxic encephalopathy; I50.32 Chronic diastolic (congestive) heart failure; G40.909 Epilepsy, unspecified, not intractable, without status epilepticus; I87.2 Venous insufficiency (chronic) (peripheral); E03.9 Hypothyroidism, unspecified; D69.6 Thrombocytopenia, unspecified; R53.1 Weakness; E87.70 Fluid overload, unspecified; E78.5 Hyperlipidemia, unspecified
CPT/HCPCS: 36415; 70450-TC; 70551-TC; 71045-TC-FY; 73030-TC-RT-FY; 73060-TC-RT-FY; 73221-TC-RT; 80053; 80061; 80164; 80177; 81003; 82550; 83721; 83735; 83880; 84100; 84443; 84484; 84550; 85025; 85610; 85730; 86140; 87040; 87086; 93005; 93010; 93970-TC; 97116-GP; 97161-GP; 99285-25; C9803; U0003; U0005

== ENCOUNTER 2022-01-14 04:19 | Day surgery (SDC) | payer OTHER ==
[2022-01-08 14:25] VITALS: BMI 32.3
[2022-01-14] MEDS ORDERED: LIDOCAINE HCL/PF 1% SDV 5ML VIAL ONE (07:19)
[2022-01-14] MEDS ORDERED: BSS (NA/CA/MG/K) BALANCED SALT SOLUTION OPHTH SOLN 15 ML BOTTLE ONE (07:19)
[2022-01-14] MEDS ORDERED: POVIDONE-IODINE 5% OPHTHALMIC PREP 30 ML SOLUTION ONE (07:19)
[2022-01-14] MEDS ORDERED: TETRACAINE 0.5% OPHTH SOLN 2 ML BOTTLE ONE (07:19)
[2022-01-14] MEDS ORDERED: TOBRAMYCIN/DEXAMETHASONE OPHTH. OINTMENT 1 TUBE ONE (07:19)
[2022-01-14] MEDS ORDERED: ACETAMINOPHEN 325 MG TABLET (FP) PO PRN (07:40)
[2022-01-14] MEDS ORDERED: TROPICAMIDE 1% OPHTH SOLN 15 ML BOTTLE ONE (09:44)
[2022-01-14] MEDS ORDERED: DICLOFENAC SODIUM 0.1% OPHTHALMIC 2.5ML BOTTLE ONE (09:44)
[2022-01-14] MEDS ORDERED: CIPROFLOXACIN 0.3% EYE DROPS 5 ML BOTTLE ONE (09:44)
[2022-01-14] MEDS ORDERED: PHENYLEPHRINE 2.5% OPTHALMIC DROP BOTTLE ONE (09:44)
[2022-01-14] MEDS: CIPROFLOXACIN HCL 0.3% OPHTH 2.5ML BOTTLE OP SCH ×3 (09:45→10:15)
[2022-01-14] MEDS: PHENYLEPHRINE 2.5% OPHTH SOLN 15 ML BOTTLE OP SCH ×3 (09:45→10:00)
[2022-01-14] MEDS: TROPICAMIDE 1% OPHTH SOLN 15 ML BOTTLE OP SCH ×3 (09:45→10:00)
[2022-01-14] MEDS: DICLOFENAC SODIUM 0.1% OPHTHALMIC 2.5ML BOTTLE OP SCH ×3 (09:45→10:15)
[2022-01-14] MEDS ORDERED: PROPOFOL 20 ML ONE (11:34)
[2022-01-14] MEDS ORDERED: LIDOCAINE HCL/PF 2% SDV 5ML VIAL ONE ×3 (11:34→11:40)
[2022-01-14] MEDS ORDERED: MIDAZOLAM HCL 2 MG/2 ML SINGLE DOSE VIAL ONE (11:34)
[2022-01-14] MEDS ORDERED: EPINEPHrine/PF 1 MG/1 ML (1:1,000) AMPULE ONE (11:44)
[2022-01-14] MEDS ORDERED: LIDOCAINE HCL/PF 2% SDV 5ML VIAL INF ONE (12:01)
[2022-01-14] MEDS ORDERED: BUPIVACAINE HCL/PF 0.75% 10 ML VIAL NR ONE (12:01)
[2022-01-14] MEDS ORDERED: POVIDONE-IODINE 5% OPHTHALMIC PREP 30 ML SOLUTION OS ONE (12:02)
[2022-01-14] MEDS ORDERED: BSS (NA/CA/MG/K) BALANCED SALT SOLUTION OPHTH SOLN 15 ML BOTTLE OS ONE (12:07)
[2022-01-14] MEDS ORDERED: CHONDROITIN SU A/HYALUR SOD 1 KIT IO ONE ×2 (12:08)
[2022-01-14] MEDS ORDERED: TRYPAN BLUE 0.5 ML DISP.SYRIN IO ONE (12:09)
[2022-01-14] MEDS ORDERED: EPINEPHrine/PF 1 MG/1 ML (1:1,000) AMPULE SQ ONE (12:19)
[2022-01-14] MEDS ORDERED: TOBRAMYCIN/DEXAMETHASONE OPHTH. OINTMENT 1 TUBE TP ONE (12:39)
[2022-01-14] MEDS ORDERED: ACETAMINOPHEN 325 MG TABLET (FP) ONE (13:49)
[2022-01-14 17:10] VITALS: RESP 20; TEMP 97.2
[2022-01-14 17:12] VITALS: BP 111/57; PULSE 70
== END 2022-01-14 14:07 | disposition home or self-care (01) ==
LOC: JASU-SURG 04:19
PROVIDERS: ATTEND Ophthalmology
PROC: 08RK3JZ Replacement of Left Lens with Synthetic Substitute, Percutaneous Approach (ICD-10-PCS; principal; 2022-01-14 11:30)
DX: H26.8 Other specified cataract (principal)

== ENCOUNTER 2022-01-25 12:17 | Emergency (ER) | payer OTHER ==
[2022-01-25 12:45] VITALS: BP 117/50; PULSE 96; RESP 20; TEMP 99.7; BMI 31.3
[2022-01-25] MEDS ORDERED: ACETAMINOPHEN 325 MG TABLET (FP) PO ONE (12:45)
[2022-01-25] MEDS ORDERED: ACETAMINOPHEN 325 MG TABLET (FP) ONE (13:21)
== END 2022-01-25 18:00 ==
LOC: JER 12:17
DX: U07.1 COVID-19 (principal)
CPT/HCPCS: 0241U-QW; 99283-25

== ENCOUNTER 2022-05-10 23:32 | Emergency (ER) | payer OTHER ==
[2022-05-11 00:01] VITALS: BP 131/72; PULSE 91; RESP 20; TEMP 97.7; BMI 29.2
[2022-05-11] MEDS ORDERED: KETOROLAC TROMETHAMINE 30 MG/1 ML VIAL IM ONE (01:14)
[2022-05-11] MEDS ORDERED: KETOROLAC TROMETHAMINE 30 MG/1 ML VIAL ONE (01:43)
[2022-05-11] MEDS ORDERED: DEXAMETHASONE SOD PHOSPHATE 10 MG/1 ML VIAL IM ONE (03:11)
[2022-05-11] MEDS ORDERED: DEXAMETHASONE SOD PHOSPHATE 10 MG/1 ML VIAL ONE (03:18)
== END 2022-05-11 05:01 ==
LOC: JER 23:32
PROC: 3E023GC Introduction of Other Therapeutic Substance into Muscle, Percutaneous Approach (ICD-10-PCS; principal; 2022-05-10)
DX: M25.512 Pain in left shoulder (principal)
CPT/HCPCS: 73030-TC-LT-FY; 93005; 93010; 99284-25; J1100

== ENCOUNTER 2022-07-22 04:14 | Day surgery (SDC) | payer OTHER ==
[2022-07-19 17:28] VITALS: BMI 32.3
[2022-07-22] MEDS ORDERED: TETRACAINE 0.5% OPHTH SOLN 2 ML BOTTLE ONE (07:50)
[2022-07-22] MEDS ORDERED: TOBRAMYCIN/DEXAMETHASONE OPHTH. OINTMENT 1 TUBE ONE (07:50)
[2022-07-22] MEDS ORDERED: POVIDONE-IODINE 5% OPHTHALMIC PREP 30 ML SOLUTION ONE (07:51)
[2022-07-22] MEDS ORDERED: TRYPAN BLUE 0.5 ML DISP.SYRIN ONE (07:51)
[2022-07-22] MEDS ORDERED: ACETAMINOPHEN 325 MG TABLET (FP) PO PRN (08:42)
[2022-07-22] MEDS ORDERED: PHENYLEPHRINE 2.5% OPHTH SOLN 15 ML BOTTLE OP SCH (08:45)
[2022-07-22] MEDS ORDERED: KETOROLAC TROMETHAMINE 0.5% EYE DROP 1 DROP DROPS OP SCH (08:45)
[2022-07-22] MEDS ORDERED: CIPROFLOXACIN HCL 0.3% OPHTH 2.5ML BOTTLE OP SCH (08:45)
[2022-07-22] MEDS ORDERED: TROPICAMIDE 1% OPHTH SOLN 15 ML BOTTLE OP SCH (08:45)
[2022-07-22] MEDS ORDERED: TROPICAMIDE 1% OPHTH SOLN 15 ML BOTTLE ONE (09:26)
[2022-07-22] MEDS ORDERED: KETOROLAC TROMETHAMINE 0.5% EYE DROP 1 DROP DROPS ONE (09:26)
[2022-07-22] MEDS ORDERED: CIPROFLOXACIN HCL 0.3% OPHTH 2.5ML BOTTLE ONE (09:26)
[2022-07-22] MEDS ORDERED: PHENYLEPHRINE 2.5% OPTHALMIC DROP 2ML BOTTLE ONE (09:26)
[2022-07-22] MEDS ORDERED: KETOROLAC TROMETHAMINE 0.5% EYE DROP 1 DROP DROPS OD ONE ×3 (09:30→09:40)
[2022-07-22] MEDS ORDERED: TROPICAMIDE 1% OPHTH SOLN 15 ML BOTTLE OD ONE ×3 (09:30→09:40)
[2022-07-22] MEDS ORDERED: CIPROFLOXACIN HCL 0.3% OPHTH 2.5ML BOTTLE OD ONE ×3 (09:30→10:00)
[2022-07-22] MEDS ORDERED: PHENYLEPHRINE 2.5% OPHTH SOLN 15 ML BOTTLE OD ONE ×3 (09:30→09:40)
[2022-07-22 09:42] VITALS: RESP 18
[2022-07-22] MEDS ORDERED: TETRACAINE 0.5% OPHTH SOLN 2 ML BOTTLE OD ONE (11:01)
[2022-07-22] MEDS ORDERED: PROPOFOL 20 ML ONE ×2 (11:04→11:16)
[2022-07-22] MEDS ORDERED: BUPIVACAINE HCL/PF 0.75% 10 ML VIAL RB ONE (11:08)
[2022-07-22] MEDS ORDERED: LIDOCAINE HCL/PF 2% SDV 5ML VIAL INF ONE (11:08)
[2022-07-22] MEDS ORDERED: POVIDONE-IODINE 5% OPHTHALMIC PREP 30 ML SOLUTION OD ONE (11:10)
[2022-07-22] MEDS ORDERED: BSS (NA/CA/MG/K) BALANCED SALT SOLUTION OPHTH SOLN 15 ML BOTTLE IO ONE (11:15)
[2022-07-22] MEDS ORDERED: TRYPAN BLUE 0.5 ML DISP.SYRIN IO ONE (11:16)
[2022-07-22] MEDS ORDERED: CHONDROITIN SU A/HYALUR SOD 1 KIT IO ONE (11:17)
[2022-07-22] MEDS ORDERED: EPINEPHrine/PF 1 MG/1 ML (1:1,000) AMPULE SQ ONE (11:23)
[2022-07-22] MEDS ORDERED: TOBRAMYCIN/DEXAMETHASONE OPHTH. OINTMENT 1 TUBE TP ONE (11:43)
[2022-07-22 13:44] VITALS: TEMP 97.8
[2022-07-22 13:48] VITALS: BP 117/45; PULSE 77
== END 2022-07-22 12:46 | disposition home or self-care (01) ==
LOC: JASU-SURG 04:14
PROVIDERS: ATTEND Ophthalmology
PROC: 08RJ3JZ Replacement of Right Lens with Synthetic Substitute, Percutaneous Approach (ICD-10-PCS; principal; 2022-07-22 11:00)
DX: H26.8 Other specified cataract (principal)
CPT/HCPCS: V2632

== ENCOUNTER 2024-01-21 11:23 | Emergency (ER) | payer OTHER ==
[2024-01-21 11:43] VITALS: TEMP 97.6; BMI 31.7
[2024-01-21 12:36] LABS: BASO % 0.3 % (0-2.0); HEMATOCRIT 34.3 % (32.4-45.2); HEMOGLOBIN 11.5 GM/dL (10.7-15.3); LYMPH % 15.9 % (8-40); MCHC 33.6 g/dl (32.0-36.0); MEAN CELL VOLUME 98.3 fl (80-96); MEAN PLT VOLUME 6.9 fl (7.5-11.1); MONO % 14.4 % (3.8-10.2); NEUT % 69.4 % (42.8-82.8); PLATELET COUNT 142 10^3/uL (134-434); RBC 3.49 M/mm3 (3.60-5.2); RDW 16.2 % (11.6-15.6); WHITE BLOOD COUNT 10.1 K/mm3 (4.0-10.0)
[2024-01-21] MEDS ORDERED: ACETAMINOPHEN 325 MG TABLET (FP) ONE (12:37)
[2024-01-21 12:44] LABS: INR 0.82 (0.83-1.09); PROTHROMBIN TIME (PATIENT) 9.5 SEC (9.7-13.0)
[2024-01-21 12:47] LABS: ACTIVATED PTT 20.6 SECONDS (25.2-36.5)
[2024-01-21] MEDS: ACETAMINOPHEN 500 MG TABLET (FP) PO ONE (12:52)
[2024-01-21] MEDS ORDERED: LIDOCAINE 4% PATCH TP ONE ×2 (13:36→16:45)
[2024-01-21] MEDS ORDERED: IBUPROFEN 400 MG TABLET (FP) PO ONE (13:36)
[2024-01-21] MEDS: LIDOCAINE 5% TOPICAL PATCH TP ONE (13:42)
[2024-01-21] MEDS: IBUPROFEN 400 MG TABLET (FP) PO ONE (13:42)
[2024-01-21 13:48] LABS: POTASSIUM 4.8 mmol/L (3.5-5.1)
[2024-01-21 13:49] LABS: CALCIUM 9.4 mg/dL (8.5-10.1)
[2024-01-21 13:50] LABS: ALBUMIN 3.5 g/dl (3.4-5.0)
[2024-01-21 13:52] LABS: BLOOD UREA NITROGEN 33.3 mg/dL (7-18)
[2024-01-21 13:53] LABS: CREATININE 1.4 mg/dL (0.55-1.3)
[2024-01-21 13:55] LABS: TOT PROT 6.6 g/dl (6.4-8.2)
[2024-01-21 13:56] LABS: BILIRUBIN,TOTAL 0.4 mg/dL (0.2-1)
[2024-01-21 14:41] VITALS: BP 135/52; PULSE 97; RESP 18
[2024-01-21] MEDS ORDERED: LIDOCAINE 5% TOPICAL PATCH TP ONE (16:38)
[2024-01-21] MEDS ORDERED: LIDOCAINE PATCH REMOVAL MC ONE (22:00)
[2024-01-22] MEDS ORDERED: LIDOCAINE PATCH REMOVAL MC ONE (05:00)
== END 2024-01-21 16:56 | disposition home or self-care (01) ==
LOC: JER 11:23
DX: M25.512 Pain in left shoulder (principal); G89.29 Other chronic pain
CPT/HCPCS: 36415; 73030-TC-LT-FY; 80053; 80061; 82550; 83036; 84484; 85025; 85610; 85730; 86850; 86900; 86901; 93005; 93010; 99285-25